=== PATIENT | male | born 1945 | race Caucasian/White ===

== ENCOUNTER → 2019-09-23 10:47 | Outpatient (BNVA) | payer MEDICARE, OTHER, SELFPAY | PROVIDERS: Family Provider Internal Medicine; PCP Internal Medicine; Referring Provider Internal Medicine; Visit Provider Orthopaedic Surgery | DX: M17.11 Unilateral primary osteoarthritis, right knee (principal); M25.561 Pain in right knee | CPT/HCPCS: 73560; 73565 ==

== ENCOUNTER → 2020-06-13 09:24 | Outpatient (BNVA) | payer MEDICARE, OTHER, SELFPAY | PROVIDERS: PCP Internal Medicine; Visit Provider Orthopaedic Surgery | DX: M17.11 Unilateral primary osteoarthritis, right knee (principal); Z96.652 Presence of left artificial knee joint | CPT/HCPCS: 73560; 73565 ==

== ENCOUNTER → 2021-09-20 11:19 | Outpatient (BNVA) | payer MEDICARE, OTHER, SELFPAY | PROVIDERS: PCP Internal Medicine; Visit Provider Nurse Practitioner Family | DX: N40.1 Benign prostatic hyperplasia with lower urinary tract symptoms (principal); R39.9 Unspecified symptoms and signs involving the genitourinary system; R33.9 Retention of urine, unspecified | CPT/HCPCS: 81003; 87086 ==

== ENCOUNTER 2022-01-02 06:00 | Outpatient (RCR) | payer MEDICARE, OTHER, SELFPAY | END 2022-01-02 23:55 | disposition home or self-care (01) | LOC: SPT 06:00 | PROVIDERS: PCP Internal Medicine; Referring Provider Orthopaedic Surgery; Visit Provider Orthopaedic Surgery | DX: M17.11 Unilateral primary osteoarthritis, right knee (principal) | CPT/HCPCS: 97161 ==

== ENCOUNTER 2022-01-03 06:00 | Outpatient (RCR) | payer MEDICARE, OTHER, SELFPAY | END 2022-02-01 23:59 | disposition home or self-care (01) | LOC: SPT 06:00 | PROVIDERS: PCP Internal Medicine; Referring Provider Orthopaedic Surgery; Visit Provider Orthopaedic Surgery | DX: M17.11 Unilateral primary osteoarthritis, right knee (principal) | CPT/HCPCS: 97110 ==

== ENCOUNTER 2022-02-02 06:00 | Outpatient (RCR) | payer MEDICARE, OTHER, SELFPAY | END 2022-03-04 23:59 | disposition home or self-care (01) | LOC: SPT 06:00 | PROVIDERS: PCP Internal Medicine; Referring Provider Orthopaedic Surgery; Visit Provider Orthopaedic Surgery | DX: Z47.1 Aftercare following joint replacement surgery (principal); Z96.651 Presence of right artificial knee joint; M25.561 Pain in right knee | CPT/HCPCS: 97110 ==

== ENCOUNTER → 2022-03-06 14:14 | Outpatient (BNVA) | payer MEDICARE, OTHER, SELFPAY | PROVIDERS: PCP Internal Medicine; Visit Provider Urology | DX: R33.9 Retention of urine, unspecified (principal); N32.9 Bladder disorder, unspecified | CPT/HCPCS: 52000; 99214 ==

== ENCOUNTER 2022-10-18 10:00 | Oncology outpatient (recurring) (ONCR) | payer MEDICARE, OTHER, SELFPAY ==
[2022-10-11] MEDS: ferric carboxy (IVPB) 750 MG in sodium chloride 0.9% (100 ml) 100 ML 345 MG IV (15:52)
[2022-10-11] MEDS: sodium chloride 0.9% 250 ML 100 ML IV (15:52)
[2022-10-11 16:31] VITALS: BP 138/72; PULSE 72; TEMP 36.6; O2SAT 95
[2022-10-18 10:15] VITALS: BP 142/75; PULSE 79; RESP 20; TEMP 36.6; O2SAT 95
[2022-10-18] MEDS: ferric carboxy (IVPB) 750 MG in sodium chloride 0.9% (100 ml) 100 ML 345 MG IV (10:28)
== END 2022-11-02 23:59 | disposition home or self-care (01) ==
PROVIDERS: PCP Internal Medicine; Visit Provider Internal Medicine
DX: D50.9 Iron deficiency anemia, unspecified (principal)
CPT/HCPCS: 96365; J1439; J7050

== ENCOUNTER → 2022-11-28 14:12 | Outpatient (BNVA) | payer MEDICARE, OTHER, SELFPAY | PROVIDERS: PCP Internal Medicine; Visit Provider Nurse Practitioner Family | DX: L81.4 Other melanin hyperpigmentation (principal); L82.1 Other seborrheic keratosis; L85.3 Xerosis cutis; D69.2 Other nonthrombocytopenic purpura; Z85.828 Personal history of other malignant neoplasm of skin | CPT/HCPCS: 99213 ==

== ENCOUNTER → 2023-09-17 08:59 | Outpatient (BNVA) | payer MEDICARE, OTHER, SELFPAY | PROVIDERS: PCP Internal Medicine; Visit Provider Student in an Organized Health Care Education/Training Program | DX: M54.50 Low back pain, unspecified; M16.11 Unilateral primary osteoarthritis, right hip | CPT/HCPCS: 72190; 99204 ==

== ENCOUNTER → 2023-09-19 15:22 | Outpatient (BNVA) | payer MEDICARE, OTHER, SELFPAY | PROVIDERS: PCP Internal Medicine; Referring Provider Student in an Organized Health Care Education/Training Program; Visit Provider Orthopaedic Surgery | DX: M51.36 Other intervertebral disc degeneration, lumbar region (principal); M47.816 Spondylosis without myelopathy or radiculopathy, lumbar region | CPT/HCPCS: 72110; 99204 ==

== ENCOUNTER 2023-11-04 14:17 | Emergency (ER) | payer MEDICARE, OTHER, SELFPAY ==
[2023-11-04 14:20] VITALS: BP 155/82; PULSE 89; RESP 17; TEMP 36.9; O2SAT 93; BMI 30.5
--- NOTE | 2023-11-04 14:24 | XR_ITS ---
WS: [id number] Examination: XR chest 1V portable [id number] Reason for Exam: dyspnea/cough Date: November 04, 2023 Comparison: 04/18/2020 Findings: Heart is not enlarged. The mediastinum not widened. Sternal wires are in place. There is no failure or effusion. There is no consolidation. Severe chronic changes of the shoulders a re noted with previous surgical changes to the lower cervical spine. Impression: There is no acute lung process.
--- NOTE | 2023-11-04 14:24 | USCV_ITS ---
Ruben Price Age: 77 Gender: M : 1945 Exam Date: 11/04/2023 15:10 Ordering Phys: Jhoan Her DO Technologist: Exam Location[place] [facility] [place]ication: lt arm swelling PROCEDURES: Venous duplex imaging was performed in only the left upper extremity. The following venous structures were evaluated: internal jugular vein, subclavian vein, axillary vein, and brachial veins. In addition, the basilic vein, cephalic vein, radial vein, and ulnar vein. FINDINGS: No evidence of deep vein thrombosis or superficial thrombophlebitis in the left upper extremity. CONCLUSIONS No left upper extremity DVT. Dr. Sharmaine Montano DO (Electronically Signed) Final Date: 04 November 2023 16:22 S
--- NOTE | 2023-11-04 14:34 | ECG_ITS ---
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 Measurements Intervals [place] Rate: 87 P: 72 DC: 162 QRS: -66 QRSD: 134 T: 75 QT: 383 QTc: 461 Interpretive Statements SINUS RHYTHM RIGHT BUNDLE BRANCH BLOCK [120+ ms QRS DURATION, UPRIGHT V1, 40+ ms S IN I/aVL/V4/V5/V6] LEFT ANTERIOR FASCICULAR BLOCK [QRS AXIS <= -45, QR IN I, RS IN II] LEFT VENTRICULAR HYPERTROPHY AND ST-T CHANGE [VOLTAGE CRITERIA PLUS ST/T ABNORMALITY] POSSIBLE SEPTAL MYOCARDIAL INFARCTION , PROBABLY OLD [30 ms Q WAVE IN V1/V2] Compared to ECG 07/02/2019 04:45:08 Right bundle-branch block now present.Left ventricular hypertrophy now present ST (T wave) deviation now present,Myocardial infarct finding now present Ventricular premature complex(es) no longer present Incomplete right bundle-branch block no longer present T-wave abnormality no longer present Electronically Signed On 11-04-2023 16:31:43 CDT by Dick Briggs M.D. [id number]
--- NOTE | 2023-11-04 14:34 | ED_ITS ---
HPI - Extremity Problem 2 General: Chief complaint: Extremity Problem,Nontraumatic Stated complaint: sent from [facility] office possible blood clot Time Seen by Provider: 11/04/23 14:24 Source: patient Mode of arrival: ambulatory History of Present Illness: 77-year-old male with a known history of coronary disease and previous bypass presents to the emergency room with complaint of left arm pain and some swelling. He was seen at his primary care doctor's office and directed to the emergency room. When he presented previously with his HI he had very atypical symptoms. No history of any DVT or clot no history of any blood draws in the arm he has a little swelling on the left forearm. No recent trauma or falls. Patient is diabetic. He is on clopidogrel post bypass but is not on any other anticoagulants no known history of any DVT or PE. No reports of fever sweats chills. He does report being somewhat short of breath recently and having mild nonproductive cough. MD Complaint: extremity pain Onset (ago): day(s) Pain Consistency: constant Location: left, upper extremity and elbow Quality: aching Relieving factors: nothing Exacerbating factors: nothing Associated symptoms: Reports chest pain; Deny arthralgias, fever(s), myalgias, rash or short of breath Review of Systems 2 Const: Denies: fever(s) Card: Reports: chest pain Resp: Reports: dyspnea and non-productive cough GI: Denies: abdominal pain : Denies: dysuria, urinary frequency or urinary urgency Musc: Reports: extremity pain and extremity swelling; Denies: neck pain or back pain Skin/Breast: Denies: rash PFSH ED 2 PFSH: Medical History History of nonmelanoma skin cancer Urinary retention Recurrent UTI BPH loc w urin obs/LUTS Lower urinary tract symptoms (LUTS) Depression Type 2 diabetes mellitus Atherosclerosis of coronary artery of [place] heart EKG revealed a sinus rhythm with some specific T wave changes in the high lateral leads. Voltage criteria for LVH. No significant new changes Arthritis Hyperlipidemia Degenerative arthritis of right knee Coronary artery disease Diabetes Hypertension Cataract Rotator cuff tear arthropathy of both shoulders Carpal tunnel syndrome of right wrist Surgical History H/O heart bypass surgery History of knee replacement History of shoulder surgery History of eye surgery History of neck surgery History of lumbar laminectomy H/O arthroscopy of right knee History of carpal tunnel surgery of left wrist Family History Mother , at age 71 Cancer breast Father , at age 65 Diabetes CAD (coronary artery disease) Denies family history of Clotting disorder Dementia Chronic kidney disease (CKD) Suicide Anesthesia complication Bleeding disorder Lung disease Stroke Social History Smoking and tobacco/nicotine status: never used tobacco/nicotine Alcohol intake: current Alcohol intake frequency: few times a week Marital status: Current occupational status: retired Physical Exam 2 Const: COMMON NORMALS: no acute distress GENERAL APPEARANCE: cooperative and comfortable ORIENTATION/CONSCIOUSNESS: Yes awake, Yes oriented to person, Yes oriented to place and Yes oriented to time HENMT: COMMON NORMALS: normocephalic, atraumatic and hearing grossly normal bilaterally HEAD & SCALP: normocephalic and atraumatic Resp: COMMON NORMALS: normal respiratory effort, No retractions, No use of accessory muscles and clear to auscultation bilaterally AUSCULTATION: clear to auscultation bilaterally Cardio: COMMON NORMALS: regular rate, regular rhythm and No murmurs present (Cardio) RATE: regular rate RHYTHM: regular rhythm GI: COMMON NORMALS: Soft to palpation and No hepatosplenomegaly present A USCULTATION: Yes normoactive bowel sounds PALPATION: Yes Soft to palpation, No Tenderness to palpation present (GI), No Guarding due to palpation present (GI) and Yes No hepatosplenomegaly present Extremity: COMMON NORMALS: normal to inspection, capillary refill normal, no clubbing, cyanosis or edema, no calf tenderness and no pedal edema Neuro: SENSORIUM/ORIENTATION: Yes oriented to person, Yes oriented to place and Yes oriented to time Skin: COMMON NORMALS: no rashes or lesions noted GENERAL SKIN EXAM: no rashes or lesions noted Course 2 Vital Signs: Vital signs: Vital Signs Temperature 98.4 F 11/04/23 14:20 Pulse Rate 86 11/04/23 17:00 Respiratory Rate 17 11/04/23 14:20 Blood Pressure 156/80 11/04/23 17:00 Pulse Oximetry 92 11/04/23 17:00 Oxygen Delivery Me thod Room Air 11/04/23 17:00 MDM - Extremity (Nontraumatic) Medical Decision Making Labs and imaging reviewed serial enzymes and EKG does not show any acute changes. He has some mild redness and some swelling is dependent at the elbow is not a significant amount of bursal swelling though appears to have a mild cellulitis. No signs of rash no evidence of a varicella-zoster. No recent injections or blood draws venous duplex was negative. Will discharge patient home with oral antibiotics. Recheck if not improving or if worsens. Incidental finding of cystitis as well antibiotic coverage should manage both issues. Medical Records I reviewed the patient's medical records. Lab Data I reviewed the patient's lab results. 11/04/23 14:37 11/04/23 14:37 Laboratory Results WBC 14.02 10^3/uL (3.29-11.43) H 11/04/23 14:37 RBC 5.28 10^6/uL (3.85-5.65) 11/04/23 14:37 Hgb 15.80 g/dL (11.27-16.99) 11/04/23 14:37 Hct 47.7 % (37-53) 11/04/23 14:37 MCV 90.3 fl (82-101) 11/04/23 14:37 MCH 29.9 pg (27-33) 11/04/23 14:37 MCHC 33.1 g/dL (30-55) 11/04/23 14:37 RDW 12.5 % (12.1-15.1) 11/04/23 14:37 Plt Count 218 10^3/cmm (157-399) 11/04/23 14:37 MPV 11.0 fL (7.4-10.4) H 11/04/23 14:37 Neut % (Auto) 74.7 % 11/04/23 14:37 Lymph % (Auto) 12.8 % 11/04/23 14:37 [place] % (Auto) 10.2 % 11/04/23 14:37 Eos % (Auto) 1.6 % 11/04/23 14:37 Baso % (Auto) 0.3 % 11/04/23 14:37 Neut # (Auto) 10.47 10^3/uL (1.8-7.7) H 11/04/23 14:37 Lymph # (Auto) 1.8 10^3/uL (0.8-4.8) 11/04/23 14:37 [place] # (Auto) 1.4 10^3/uL (0.2-0.9) H 11/04/23 14:37 Eos # (Auto) 0.2 10^3/uL (0.0-0.8) 11/04/23 14:37 Baso # (Auto) 0.0 10^3/uL (0.0-0.1) 11/04/23 14:37 Nucleated RBC % (auto) 0 % 11/04/23 14:37 Nucleated RBCs # 0.0 /100WBC 11/04/23 14:37 PT 12.60 SECONDS (12.1-14.9) 11/04/23 14:37 INR 0.92 (0.8-1.2) 11/04/23 14:37 APTT 28.7 SECONDS (23.9-36.7) 11/04/23 14:37 Sodium 137 mmol/L (136-145) 11/04/23 14:37 Potassium 4.4 mmol/L (3.5-5.1) 11/04/23 14:37 Chloride 100 mmol/L (98-107) 11/04/23 14:37 Carbon Dioxide 27 mmol/L (22-29) 11/04/23 14:37 Anion Gap 14.4 (5-19) 11/04/23 14:37 BUN 12 mg/dL (8-23) 11/04/23 14:37 Creatinine 1.1 mg/dL (0.7-1.2) 11/04/23 14:37 GFR Calculation Not Reportable 11/04/23 14:37 Glucose 126 mg/dL (65-115) H 11/04/23 14:37 Calculated Osmolality 285 mOsm/kg (285-295) 11/04/23 14:37 Lactic Acid 1.3 mmol/L (0.5-2.2) 11/04/23 14:37 Calcium 9.6 mg/dL (8.5-10.5) 11/04/23 14:37 Total Bilirubin 0.7 mg/dL (0.15-1.2) 11/04/23 14:37 AST 25 U/L (0-40) 11/04/23 14:37 ALT 26 U/L (0-41) 11/04/23 14:37 Alkaline Phosphatase 89 U/L (40-130) 11/04/23 14:37 Troponin T Baseline 24 ng/L (0-15) H 11/04/23 14:37 Troponin T 120 Minute 21.79 ng/L (0-15) H 11/04/23 16:40 Delta Troponin T -2.21 ABS# (0-10) L 11/04/23 16:40 Total Protein 6.5 g/dL (6.6-8.7) L 11/04/23 14:37 Albumin 4.1 g/dL (3.5-5.2) 11/04/23 14:37 Globulin 2.4 g/dL (1.3-4.6) 11/04/23 14:37 Urine Color Yellow (Yellow) 11/04/23 15:53 Urine Appearance Sl hazy (CLEAR) A 11/04/23 15:53 Urine pH 7 (5-7) 11/04/23 15:53 Ur Specific [place] 1.015 (1.005-1.030) 11/04/23 15:53 Urine Protein Neg (Negative) 11/04/23 15:53 Urine Glucose (UA) Norm (Normal) 11/04/23 15:53 Urine Ketones 1+ (Negative) H 11/04/23 15:53 Urine Blood Neg (Negative) 11/04/23 15:53 Urine Nitrate Positive (Negative) H 11/04/23 15:53 Urine Bilirubin Neg (Negative) 11/04/23 15:53 Urine Urobilinogen 1 mg/dL (Negative) H 11/04/23 15:53 Ur Leukocyte Esterase 1+ (Negative) H 11/04/23 15:53 Urine RBC None /hpf (0-2) 11/04/23 15:53 Urine WBC 15-25 /hpf (0-5) H 11/04/23 15:53 Ur Squamous Epith Cells None /hpf (0-5) 11/04/23 15:53 Amorphous Sediment Not Reportable 11/04/23 15:53 Urine Bacteria 3+ /hpf (NONE) H 11/04/23 15:53 All radiology interpretation(s) finalized by discharge Discharge Plan Discharge Patient Disposition: Home Clinical Impression: Cellulitis, Cystitis Condition: Stable Prescriptions: New levofloxacin 500 mg tablet 500 mg PO DAILY 7 Days Qty: 7 0RF No Action omeprazole 20 mg capsule,delayed release(DR/EC) 20 mg PO DAILY nitroglycerin [Nitrostat] 0.4 mg tablet, sublingual 0.4 mg SUBLINGUAL Q5M PRN (Reason: Chest Pain) Tresiba FlexTouch U-100 100 unit/mL (3 mL) insulin pen 10 unit SUBCUT BID rosuvastatin 10 mg tablet 10 mg PO DAILY Qty: 30 0RF metformin 500 mg tablet extended release 24 hr 500 mg PO BID clopidogrel 75 mg tablet 75 mg PO DAILY tamsulosin 0.4 mg capsule 0.4 mg PO BID alprazolam 0.5 mg tablet 0.5 mg PO DAILY fluticasone propionate 50 mcg/actuation spray,suspension 2 spray INTRANASAL DAILY Discharge Orders: Discharge ED (Routine); Ordered 11/04/23 Ordered By: Jhoan Her Referrals: Gianfranco Barros, [Primary Care Provider] - Discharge Diet: Usual diet Discharge Activity: Increase activity as tolerated Patient Instructions: Opioid Safety, Pain Management Activity Restrictions/Additional Instructions: Thank you for choosing [facility] for your healthcare needs today. Please realize this is an emergency room and that we are providing you with a medical screening exam and this may not be complete and all inclusive of all the testing and or work up that you may need to determine your ailment or severity of your illness. It is very important that you follow up as instructed or that you return to the Emergency Department should you have concerns or if your condition changes or worsens in any way. You were seen today for some swelling in your left arm. Cardiac enzymes and EKG were normal. Ultrasound of the left arm did not show any clot your cardiac enzymes and EKG did not show any acute changes. You are also noted to have a bladder infection. Recommend that you take the antibiotics for a full 7 days. Follow-up with your primary care doctor within the next week to recheck. Coding Level of Care Code ED Marking Stitcher for Olesya Grant
[2023-11-04] MEDS: aspirin 81 mg Chew Tablet 324 MG PO (14:47)
[2023-11-04 14:49] LABS: Basophils % 0.3 %; Eosinophils # 0.2 10^3/uL (0.0-0.8); Eosinophils % 1.6 %; Hematocrit 47.7 % (37-53); Lymphocytes # 1.8 10^3/uL (0.8-4.8); Lymphocytes % 12.8 %; Mean Corpuscular HGB Conc 33.1 g/dL (30-55); Mean Corpuscular Hemoglobin 29.9 pg (27-33); Mean Corpuscular Volume 90.3 fl (82-101); Monocytes # 1.4 10^3/uL (0.2-0.9); Monocytes % 10.2 %; Neutrophils # 10.47 10^3/uL (1.8-7.7); Neutrophils % 74.7 %; Nucleated Red Blood Cells % 0 %; Platelet Count 218 10^3/cmm (157-399); Red Blood Count 5.28 10^6/uL (3.85-5.65); Red Cell Distribution Width 12.5 % (12.1-15.1); White Blood Count 14.02 10^3/uL (3.29-11.43)
[2023-11-04 15:00] LABS: INR 0.92 (0.8-1.2); Partial Thromboplastin Time 28.7 SECONDS (23.9-36.7)
[2023-11-04 15:06] LABS: Alanine Aminotransferase 26 U/L (0-41); Albumin Level 4.1 g/dL (3.5-5.2); Alkaline Phosphatase 89 U/L (40-130); Aspartate Amino Transferase 25 U/L (0-40); Blood Urea Nitrogen 12 mg/dL (8-23); Calcium 9.6 mg/dL (8.5-10.5); Carbon Dioxide 27 mmol/L (22-29); Chloride 100 mmol/L (98-107); Creatinine Clr Calc Pharmacy 61.5862; Globulin 2.4 g/dL (1.3-4.6); Glucose 126 mg/dL (65-115); Osmolality Calculated 285 mOsm/kg (285-295); Sodium 137 mmol/L (136-145); Total Bilirubin 0.7 mg/dL (0.15-1.2); Total Protein 6.5 g/dL (6.6-8.7)
[2023-11-04 15:07] LABS: Anion Gap 14.4 (5-19); Lactic Sepsis W/Reflex 1.3 mmol/L (0.5-2.2); Potassium 4.4 mmol/L (3.5-5.1)
[2023-11-04 15:09] LABS: Troponin(5th) Baseline 24 ng/L (0-15)
[2023-11-04 16:00] VITALS: BP 144/88; PULSE 91; O2SAT 92
[2023-11-04 16:30] VITALS: BP 137/106; PULSE 93; O2SAT 93
--- NOTE | 2023-11-04 16:34 | ECG_ITS ---
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 Measurements Intervals [place] Rate: 89 P: 68 TN: 161 QRS: -66 QRSD: 129 T: 69 QT: 375 QTc: 458 Interpretive Statements SINUS RHYTHM RIGHT BUNDLE BRANCH BLOCK [120+ ms QRS DURATION, UPRIGHT V1, 40+ ms S IN I/aVL/V4/V5/V6] LEFT ANTERIOR FASCICULAR BLOCK [QRS AXIS <= -45, QR IN I, RS IN II] LEFT VENTRICULAR HYPERTROPHY AND ST-T CHANGE [VOLTAGE CRITERIA PLUS ST/T ABNORMALITY] Compared to ECG 11/04/2023 14:59:32 Myocardial infarct finding no longer present ST (T wave) deviation still present Electronically Signed On 11-04-2023 18:32:52 CDT by Dick Briggs M.D. [id number]
[2023-11-04 16:56] LABS: Glucose Urine UA Norm (Normal); Ketones Urine 1+ (Negative); Protein Urine Neg (Negative); Specific Gravity, Urine 1.015 (1.005-1.030); Urine Appearance SL Hazy (CLEAR); Urine Color Yellow (Yellow); pH Urine 7 (5-7)
[2023-11-04 16:57] LABS: Add Urine Culture? Yes; Add Urine Microscopic? YES; Bacteria Urine 3+ /hpf; Bilirubin Urine Neg (Negative); Blood Urine Neg (Negative); Leukocyte Esterase Urine 1+ (Negative); Nitrate Urine Positive (Negative); Urobilinogen Urine 1 mg/dL (Negative); WBC Urine 15-25 /hpf (0-5)
[2023-11-04 17:00] VITALS: BP 156/80; PULSE 86; O2SAT 92
[2023-11-04 17:03] LABS: Troponin 5 2HR 21.79 ng/L (0-15)
[2023-11-04 17:04] LABS: Troponin 5 2HR Delta -2.21 ABS# (0-10)
== END 2023-11-04 17:49 | disposition home or self-care (01) ==
PROVIDERS: Emergency Provider Family Medicine; PCP Internal Medicine
DX: L03.114 Cellulitis of left upper limb (principal); N30.90 Cystitis, unspecified without hematuria; Z79.4 Long term (current) use of insulin; Z79.84 Long term (current) use of oral hypoglycemic drugs; Z79.02 Long term (current) use of antithrombotics/antiplatelets; E11.9 Type 2 diabetes mellitus without complications; I25.10 Atherosclerotic heart disease of native coronary artery without angina pectoris; E78.5 Hyperlipidemia, unspecified; I10 Essential (primary) hypertension
CPT/HCPCS: 36415; 71045; 80053; 81001; 83605; 84484; 85025; 85610; 85730; 87077; 87086; 87186; 93005; 93971; 99285

== ENCOUNTER → 2023-12-04 10:23 | Outpatient (BNVA) | payer MEDICARE, OTHER, SELFPAY | PROVIDERS: PCP Internal Medicine; Visit Provider Anesthesiology Pain Medicine | DX: M54.16 Radiculopathy, lumbar region (principal); M79.18 Myalgia, other site; G89.29 Other chronic pain; M47.816 Spondylosis without myelopathy or radiculopathy, lumbar region; M16.11 Unilateral primary osteoarthritis, right hip; M17.11 Unilateral primary osteoarthritis, right knee | CPT/HCPCS: 20553; 99204; J1010; J3490 ==

== ENCOUNTER 2023-12-11 07:02 | Outpatient (CLI) | payer MEDICARE, OTHER, SELFPAY ==
--- NOTE | 2023-12-11 07:15 | MR_ITS ---
WS: [id number] MRI LUMBAR SPINE NONCONTRAST TECHNIQUE: Sagittal T1, T2 and STIR imaging. Axial T1 and T2 imaging. CLINICAL INFORMATION: M54.16 - Radiculopathy, lumbar region COMPARISON: None. FINDINGS: Mild lumbar curve. No acute compression. Disc bulging worse at L1-L2 and L2-L3 with small central pro trusions. Disc space narrowing worse at L4-5. Prior postoperative changes RIGHT hemilaminectomy L2-3 and L4-5. L1-L2: Small central protrusion. Mild central canal stenosis with narrowing of the subarticular reces s bilaterally. Mild to moderate bilateral foraminal narrowing with small foraminal protrusions. L2-L3: RIGHT hemilaminectomy. Shallow central protrusion. Mild central canal stenosis. Impingement tr aversing L3 nerve roots bilaterally. Advanced facet arthropathy. Mild to moderate bilateral foraminal narrowing. L3-L4: Mild annular bulging. Narrowing of the subarticular recess bilaterally. Moderate facet arthrop athy. Mild LEFT greater than RIGHT foraminal narrowing. L4-L5: RIGHT hemilaminectomy. Central disc protrusion with slight narrowing of the subarticular reces s bilaterally with impingement of traversing L5 nerve roots. Moderate facet arthropathy. Mild bilater al foraminal narrowing. L5-S1: Mild disc bulge with slight impingement on the traversing RIGHT S1 nerve root in the subarticu lar recess. Moderate facet arthropathy. Mild to moderate RIGHT foraminal narrowing. Visualized pelvic bony structures: Normal. Paravertebral soft tissues: Normal. Tiny RIGHT renal cyst. MR/MR lumbar spine wo con* [id number] IMPRESSION: 1. Mild lumbar curve. No acute compression. 2. Mild central canal stenosis with narrowing of the subarticular recess bilat erally at L1-2 and L2-3. Left-right narrowing of the thecal sac at these levels . 3. Prior RIGHT hemilaminectomy L2-3 and L4-5. 4. Shallow central disc protrusions L3-L4 and L4-L5 with slight impingement on subarticular recess and traversing nerve roots at these levels. 5. Disc bulge L5-S1 with slight impingement on the RIGHT subarticular recess a nd RIGHT S1 nerve root. Mild to moderate RIGHT L5-S1 foraminal narrowing at thi s level. 6. Otherwise mild to moderate bilateral foraminal narrowing L1-2 and L2-3 7. Moderate facet arthropathy L1-L2 L2-3 L3-L4 L4-L5.
== END 2023-12-11 07:03 | disposition home or self-care (01) ==
LOC: RAD 07:02
PROVIDERS: PCP Internal Medicine; Visit Provider Anesthesiology Pain Medicine
DX: M51.16 Intervertebral disc disorders with radiculopathy, lumbar region (principal); M51.17 Intervertebral disc disorders with radiculopathy, lumbosacral region; M47.816 Spondylosis without myelopathy or radiculopathy, lumbar region
CPT/HCPCS: 72148

== ENCOUNTER → 2024-01-14 10:01 | Outpatient (BNVA) | payer MEDICARE, OTHER, SELFPAY | PROVIDERS: PCP Internal Medicine; Visit Provider Anesthesiology Pain Medicine | DX: G89.29 Other chronic pain; M16.11 Unilateral primary osteoarthritis, right hip; M17.11 Unilateral primary osteoarthritis, right knee; M47.816 Spondylosis without myelopathy or radiculopathy, lumbar region; M48.061 Spinal stenosis, lumbar region without neurogenic claudication | CPT/HCPCS: 99214 ==

== ENCOUNTER → 2024-01-29 10:11 | Outpatient (BNVA) | payer MEDICARE, OTHER, SELFPAY | PROVIDERS: PCP Internal Medicine; Visit Provider Internal Medicine Cardiovascular Disease | DX: I10 Essential (primary) hypertension (principal); I25.5 Ischemic cardiomyopathy; E78.2 Mixed hyperlipidemia; I25.10 Atherosclerotic heart disease of native coronary artery without angina pectoris; E11.65 Type 2 diabetes mellitus with hyperglycemia; Z79.4 Long term (current) use of insulin | CPT/HCPCS: 99215 ==

== ENCOUNTER → 2024-02-18 14:28 | Outpatient (CLI) | payer MEDICARE, OTHER, SELFPAY ==
--- NOTE | 2024-02-18 14:30 | USCV_ITS ---
Ruben Price Age: 78 Gender: M : 1945 Exam Date: 02/18/2024 14:51 Ordering Phys: Dick Briggs MD ([email or web address]) Technologist: CT Exam Location: [facility] [place] Indication: BP: 168 / 92 HR: 68 Rhythm: Sinus Technical Quality: Adequate MEASUREMENTS (Male / Female) Normal Values 2D ECHO LVOT Diameter 2.4 cm LV Ejection Fraction MOD 4C 45.0 % LV Ejection Fraction MOD 2C 30.8 % LV Ejection Fraction 2C AL 33.2 % LA Diameter 3.9 cm RA Systolic Volume 4C AL 38.4 ml RA Systolic Volume 4C MOD 37.6 ml LA Sys Volume AL 64.4 cm cubed LA Sys Volume Index AL 31.1 cm cubed/m squared Aorta at Sinotubular Diameter 2.5 cm IVC Diameter 2.0 cm M-MODE LA Ao Ratio MM 1.4 AV Cusp Separation MM 2.4 cm DOPPLER AV Peak Velocity 104.0 cm/s LVOT Peak Velocity 67.0 cm/s AV Area Cont Eq vti 3.0 cm squared AV Area Cont Eq pk 2.8 cm squared MV Peak Velocity 69.0 cm/s MV Area PHT 3.2 cm squared Mitral E to A Ratio 1.2 TV Peak Velocity 217.0 cm/s TR Peak Velocity 260.0 cm/s TR Peak Gradient 27.0 mmHg TV Peak E Velocity 76.0 cm/s Right Atrial Pressure 3.0 mmHg Pulmonary Artery Systolic Pressu 30.0 mmHg PV Peak Velocity 91.0 cm/s FINDINGS Left Ventricle Moderate concentric left hypertrophy.Abnormal septal motion consistent with conduction abnormality.Grade I/IV diastolic dysfunction (abnormal relaxation filling pattern), normal to mildly elevated filling pressures. Right Ventricle The right ventricle is normal in size and function. Right Atrium The right atrium is normal in size. Left Atrium Echodensity near to the left atrial appendage, suggesting Coumadin ridge.mildly increased left atrial size. Mitral Valve Trace mitral valve regurgitation. Aortic Valve Minimally thickened aortic valve Tricuspid Valve Mild tricuspid valve regurgitation. Pulmonic Valve Pulmonic valve not well visualized. Pericardium No pericardial effusion. Aorta Normal aortic annulus size. IVC Inferior vena cava not visualized. CONCLUSIONS Moderate concentric left hypertrophy. LV ejection fraction around 45% Abnormal septal motion consistent with conduction abnormality. Type I diastolic dysfunction. Mildly increased left atrial size. Echodensity in the left atrium, suggesting prominent Coumadin ridge Mild tricuspid valve regurgitation. Trace mitral valve regurgitation. Estimated pulmonary artery peak systolic pressure 30 mm ofHg There is no pericardial effusion. There are no intracardiac masses. Compared to the study from 07/07/2019, there is some improvement in the LV ejection fraction.(From 35% to 45%) Dr Dick Briggs MD [facility] (Electronically Signed) Final Date: 25 February 2024 09:19 S
== END | disposition home or self-care (01) ==
LOC: RAD 14:28
PROVIDERS: PCP Internal Medicine; Visit Provider Internal Medicine Cardiovascular Disease
DX: I25.5 Ischemic cardiomyopathy (principal); E78.2 Mixed hyperlipidemia; I51.7 Cardiomegaly; I50.30 Unspecified diastolic (congestive) heart failure; I51.0 Cardiac septal defect, acquired
CPT/HCPCS: 93306

== ENCOUNTER → 2024-04-22 12:42 | Outpatient (BNVA) | payer MEDICARE, OTHER, SELFPAY | PROVIDERS: PCP Internal Medicine; Visit Provider Internal Medicine Cardiovascular Disease | DX: I25.5 Ischemic cardiomyopathy (principal); I10 Essential (primary) hypertension; Z95.1 Presence of aortocoronary bypass graft; R42 Dizziness and giddiness | CPT/HCPCS: 99214 ==

== ENCOUNTER → 2024-05-28 12:33 | Outpatient (BNVA) | payer MEDICARE, SELFPAY | PROVIDERS: PCP Internal Medicine; Visit Provider Internal Medicine Cardiovascular Disease | DX: I25.5 Ischemic cardiomyopathy (principal); I10 Essential (primary) hypertension; E78.2 Mixed hyperlipidemia; I95.1 Orthostatic hypotension; R42 Dizziness and giddiness | CPT/HCPCS: 99214 ==

== ENCOUNTER 2024-07-07 09:45 | Outpatient (CLI) | payer MEDICARE, SELFPAY ==
--- NOTE | 2024-07-07 09:52 | USCV_ITS ---
Ruben Price Age: 78 Gender: M : 1945 Exam Date: 07/07/2024 10:59 Ordering Phys: Gianfranco Barros DO Technologist: Exam [place] [facility] [place] Indication: claudication RIGHT LEFT Brachial 138.00 mmHg Brachial 135.00 mmHg FINDINGS noncompressible tibial vessels bilaterally arterial duplex maybe of use Noncompressible ankle vessels bilaterally. Resting TBI of greater than 2.0 on the right side and 1.38 on the left CONCLUSIONS Noncompressible ankle vessels. So the ABIs could not be obtained Supranormal TBIs bilaterally. The above features may suggest extensive arterial sclerosis with no evidence of obstruction Dr Dick Briggs MD [facility] (Electronically Signed) Final Date: 07 July 2024 21:04 S
== END 2024-07-07 09:49 | disposition home or self-care (01) ==
PROVIDERS: PCP Internal Medicine; Visit Provider Internal Medicine
DX: I70.213 Atherosclerosis of native arteries of extremities with intermittent claudication, bilateral legs (principal)
CPT/HCPCS: 93922

== ENCOUNTER → 2024-07-21 09:45 | Outpatient (BNVA) | payer MEDICARE, SELFPAY | PROVIDERS: PCP Internal Medicine; Visit Provider Internal Medicine Cardiovascular Disease | DX: I25.5 Ischemic cardiomyopathy (principal); I10 Essential (primary) hypertension; E78.5 Hyperlipidemia, unspecified; I73.9 Peripheral vascular disease, unspecified | CPT/HCPCS: 99214 ==

== ENCOUNTER 2024-08-03 14:53 | Outpatient (CLI) | payer MEDICARE, OTHER, SELFPAY ==
--- NOTE | 2024-08-03 15:00 | CTR_ITS ---
PROCEDURE INFORMATION: Exam: CTA Abdominal Aorta and Bilateral Lower Extremities (Run-off) With Contrast Exam date and time: 08/03/2024 3:33 PM Age: 78 years old Clinical indication: Abnormal findings; Abnormal diagnostic imaging exam; Abnormality: Sanjiv; Prior surgery; Surgery date: 6+ months; Surgery type: Bilat knee; Additional info: Abnormal sanjiv's, life style limiting claudication TECHNIQUE: Imaging protocol: Computed tomographic angiography of the of the abdominal aorta, pelvis and bilateral lower extremities with contrast. 3D rendering (Not supervised by radiologist): MIP and/or 3D reconstructed images were created by the technologist. Radiation optimization: All CT scans at this facility use at least one of these dose optimization techniques: automated exposure control; mA and/or kV adjustment per patient size (includes targeted exams where dose is matched to clinical indication); or iterative reconstruction. Contrast material: OMNIPAQUE 350; Contrast volume: 125 ml; Contrast route: INTRAVENOUS (IV); COMPARISON: US CV ankle brachial index 83698 07/07/2024 10:59 AM RADIATION DOSE METRICS: Total DLP (mGy-cm): 1736.98 FINDINGS: Aorta: No aortic aneurysm. No aortic dissection. Minimal atherosclerotic disease in the infrarenal abdominal aorta. Celiac trunk and mesenteric arteries: There is minimal calcification with probable mild stenosis at the origin of the celiac and superior mesenteric artery with mild ecta poststenotic ectasia of the arteries without evidence hemodynamically significant stenosis or occlusion. Minimal atherosclerosis in the proximal inferior mesenteric artery. Renal arteries: No occlusion or significant stenosis. Mild atherosclerosis of the origin of the right renal artery. Right iliac arteries: No occlusion or significant stenosis. Minimal atherosclerosis involving the proximal right external iliac artery. Right femoral/popliteal arteries: Moderate multifocal calcified plaque throughout the course of the right common , deep femoral and right popliteal arteries resulting in mild stenosis. Evaluation at the level of the knee is limited due to right knee arthroplasty. Right infrapopliteal arteries: Severe multifocal calcified and noncalcified plaque resulting in at least moderate stenosis involving the right infrapopliteal arteries. There is intact three-vessel runoff in the right foot. Left iliac arteries: No occlusion or significant stenosis. Minimal atherosclerosis involving the proximal left external iliac artery. Left femoral/popliteal arteries: Moderate multifocal calcified plaque resulting in mild stenosis of the left common femoral, deep femoral, and popliteal arteries. Evaluation at the level of the left knee is limited due to left knee arthroplasty. Left infrapopliteal arteries: Multifocal calcified and noncalcified plaque resulting in at least moderate stenosis of the infrapopliteal arteries. There is intact three-vessel runoff through the left foot. Lungs: Bibasilar atelectasis. Partially visualized scattered subcentimeter calcified granulomas. Coronary arteries: Severe coronary artery calcification. Liver: The liver is normal in size. Diaphragm: Small sliding hiatal hernia. Gallbladder and biliary ducts: Unremarkable. No calcified stones. No ductal dilation. Pancreas: Unremarkable. No mass. No ductal dilation. Spleen: Normal. No splenomegaly. Adrenal glands: 10 x 16 mm right adrenal nodule incompletely evaluated on this exam. No left-sided adrenal nodule. Kidneys and ureters: Multiple cysts in the bilateral kidneys largest of which is seen in the interpolar/lower pole of the right kidney measuring up to 30 mm with complex fluid attenuation and scattered peripheral calcifications. Additional scattered mildly complex fluid attenuating cysts such as seen in the upper pole of the left kidney measuring approximately 8 mm. No evidence of hydroureteronephrosis or obstructing nephrolithiasis bilaterally. Stomach and bowel: Moderate to severe colonic diverticulosis without evidence to suggest acute diverticulitis. Appendix: The appendix is not definitively visualized however there are no secondary signs to suggest acute appendicitis. Urinary bladder: The urinary bladder is mildly distended with urine and moderately circumferentially thickened. Reproductive: Unremarkable as visualized. Intraperitoneal space: Unremarkable. No free air. No significant fluid collection. Lymph nodes: No lymphadenopathy. Bones/joints: Postsurgical changes from median sternotomy. Moderate hindfoot degenerative changes bilaterally. Moderate to severe multilevel degenerative changes of the thoracolumbar spine. Soft tissues: Small fat containing inguinal hernias right greater than left. Small amount of fluid within the left inguinal hernia. Mild soft tissue swelling and edema along the shins bilaterally. Soft tissue swelling and stranding also appreciated at the level of the base of the 1st metatarsals bilaterally. CT/CT angio abd aorta runof 64530 IMPRESSION: 1. Mild to moderate multifocal calcified and noncalcified plaque throughout the arteries of the lower extremities bilaterally kwxbu-dvqyntq-exkp-left with resultant yeml-ta-kwzjslsh stenosis as described above. There is intact three-vessel runoff through the feet bilaterally. 2. Calcification resulting in mild stenosis at the origin of the celiac and superior mesenteric arteries. 3. Multiple cysts in the bilateral kidneys with intermediate fluid density measuring up to 3 cm on the right incompletely evaluated on single phase examination. Further evaluation with nonemergent MRI renal mass protocol can be obtained as clinically indicated. 4. 16 mm right adrenal nodule incompletely evaluated on this exam. Can similarly be further evaluated with nonemergent MRI abdomen. 5. Other findings as described in the body of the report.
[2024-08-03 15:33] LABS: Blood Urea Nitrogen 10 mg/dL (8-23)
[2024-08-03] MEDS: iohexol 350 mg/mL 500 mL Btl (per mL) IV (16:00)
== END 2024-08-03 14:54 | disposition home or self-care (01) ==
LOC: RAD 14:55
PROVIDERS: PCP Internal Medicine; Visit Provider Internal Medicine Cardiovascular Disease
DX: I70.213 Atherosclerosis of native arteries of extremities with intermittent claudication, bilateral legs (principal); D35.01 Benign neoplasm of right adrenal gland; Q61.02 Congenital multiple renal cysts; I77.4 Celiac artery compression syndrome; I70.0 Atherosclerosis of aorta; I70.1 Atherosclerosis of renal artery; K55.1 Chronic vascular disorders of intestine; I77.1 Stricture of artery; Z98.890 Other specified postprocedural states; J98.11 Atelectasis; I25.10 Atherosclerotic heart disease of native coronary artery without angina pectoris; K44.9 Diaphragmatic hernia without obstruction or gangrene; N28.89 Other specified disorders of kidney and ureter; K57.90 Diverticulosis of intestine, part unspecified, without perforation or abscess without bleeding; R93.5 Abnormal findings on diagnostic imaging of other abdominal regions, including retroperitoneum; R93.41 Abnormal radiologic findings on diagnostic imaging of renal pelvis, ureter, or bladder; M19.072 Primary osteoarthritis, left ankle and foot; M19.071 Primary osteoarthritis, right ankle and foot; M47.895 Other spondylosis, thoracolumbar region; K40.90 Unilateral inguinal hernia, without obstruction or gangrene, not specified as recurrent; I70.201 Unspecified atherosclerosis of native arteries of extremities, right leg; J84.10 Pulmonary fibrosis, unspecified; I25.84 Coronary atherosclerosis due to calcified coronary lesion
CPT/HCPCS: 75635; 82565; 84520

== ENCOUNTER → 2024-09-07 14:55 | Outpatient (BNVA) | payer MEDICARE, OTHER, SELFPAY | PROVIDERS: PCP Family Medicine; Visit Provider Family Medicine | DX: I10 Essential (primary) hypertension (principal); E11.65 Type 2 diabetes mellitus with hyperglycemia; R53.1 Weakness; E78.2 Mixed hyperlipidemia; N40.1 Benign prostatic hyperplasia with lower urinary tract symptoms | CPT/HCPCS: 80053; 80061; 82306; 82607; 83036; 83721; 83880; 84153; 84403; 84443; 85025; 86140 ==

== ENCOUNTER → 2024-11-30 15:51 | Outpatient (BNVA) | payer MEDICARE, OTHER, SELFPAY | PROVIDERS: PCP Family Medicine; Visit Provider Internal Medicine Cardiovascular Disease | DX: I25.5 Ischemic cardiomyopathy (principal); I11.0 Hypertensive heart disease with heart failure; I50.9 Heart failure, unspecified; E11.51 Type 2 diabetes mellitus with diabetic peripheral angiopathy without gangrene; Z79.4 Long term (current) use of insulin; Z79.84 Long term (current) use of oral hypoglycemic drugs | CPT/HCPCS: 99214 ==

== ENCOUNTER → 2024-12-03 10:33 | Outpatient (BNVA) | payer MEDICARE, OTHER, SELFPAY | PROVIDERS: PCP Family Medicine; Visit Provider Family Medicine | DX: E78.2 Mixed hyperlipidemia (principal); E11.65 Type 2 diabetes mellitus with hyperglycemia; R53.1 Weakness; I10 Essential (primary) hypertension; R06.02 Shortness of breath | CPT/HCPCS: 80053; 80061; 83036; 83880 ==

== ENCOUNTER 2024-12-14 07:19 | Outpatient (CLI) | payer MEDICARE, OTHER, SELFPAY ==
--- NOTE | 2024-12-14 | ECG_ITS ---
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 Interpretive Statements LEXISCAN SESTAMIBI STRESS TEST Procedure: At the baseline, the blood pressure was 141/73 mmHg with a heart rate of 63 bpm. The electrocardiogram showed normal sinus rhythm, interventricular conduction delay with normal ST and T's. The Lexiscan was infused over a period of 20 seconds. A total of 0.4 mg of Lexiscan was infused. The stress phase was continued for a total of 5 minutes. Heart rate was at the end of stress phase was 81 bpm and a blood pressure of 111/71 mmHg. The EKG at the peak infusion revealed normal sinus rhythm with no significant ST-T wave changes. PVCs seen Sestamibi was injected 20 seconds after the Lexiscan infusion. Blood pressure at the end of recovery phase was 121/70 mmHg with a heart rate of 77 bpm. Conclusion: 1. Normal EKG response to Lexiscan infusion 2. No Lexiscan induced chest pain or cardiac arrhythmia. 3. Normal blood pressure and heart rate response. 4. Sestamibi/sestamibi perfusion scan pending; see separate report. Electronically Signed On 12-19-2024 12:13:44 CDT by Tommy Moreno M.D. [email or web address]
--- NOTE | 2024-12-14 07:40 | NMCV_ITS ---
NM juanis perf SPECT r/s* [id number] Ruben Price Age: 79 Gender: M : 1945 Exam Date: 12/14/2024 08:35 Ordering Phys: Pradip Le MD ([email or web address]) Technologist: DAR Nixon Exam Location: [facility] Indications: cp STRESS TEST [facility] IMAGE PROTOCOL Rest/Stress 1 Lexiscan Day Radiopharmaceutical Dose (mCi) Administration Site Administered by Rest: Tc-99m 10.7 IV Suzette Inman, GAS STATION OPERATOR Sestamibi Stress:Tc-99m 32.6 IV Suzette Christiegle, GAS STATION OPERATOR Sestamibi Rest: 14-Dec-2024 60 Discovery 630 Stress: 14-Dec-2024 30 Discovery 630 0.4mg Lexiscan. Images obtained in supine and prone position. SPECT RESULTS Technical Quality: Good Raw Data Analysis: Normal Image Corrections: No attenuation or motion correction applied Summed Stress Score: 15 Summed Rest Score: 7 Summed Difference Score: 9 PERFUSION FINDINGS Medium sized area of fixed perfusion defect noted in mid to distal inferior wall which showed large area of severe reversibility suggestive of old myocardial infarction surrounded by large area of severe collin-infarct ischemia in RCA territory. There appeared to be medium size area moderate reversibility noted in mid to lateral anterior wall suggestive of ischemia in the absence of prone images cannot rule out artifact. Clinical correlation advised. FUNCTIONAL RESULTS (calculated via Gated SPECT) Stress Image LV EF (%): 54 Stress EDV (mL):153 TID: 1.2 Stress ESV (mL):70 FUNCTIONAL FINDINGS: There appeared to be global hypokinesis. IMPRESSIONS Medium sized area of fixed perfusion defect noted in mid to distal inferior wall which showed large area of severe reversibility suggestive of old myocardial infarction surrounded by large area of severe collin-infarct ischemia in RCA territory. There appeared to be medium size area moderate reversibility noted in mid to lateral anterior wall suggestive of ischemia in the absence of prone images cannot rule out artifact. Clinical correlation advised. Pradip Le MD (Electronically Signed) Final Date: 17 Dec 2024 22:15 S
[2024-12-14 07:43] VITALS: BMI 31.0
[2024-12-14] MEDS: regadenoson 0.4 Mg/5 ml Syringe IVP (09:08)
[2024-12-14 09:18] VITALS: BP 121/70; PULSE 79
--- NOTE | 2024-12-14 11:23 | USCV_ITS ---
Ruben Price Age: 79 Gender: M : 1945 Exam Date: 12/14/2024 09:18 Ordering Phys: Dick Briggs MD Technologist: [place] [facility] [place]ication: cp sob BP: 128 / 73 HR: 68 Rhythm: Sinus Technical Quality: Adequate MEASUREMENTS (Male / Female) Normal Values 2D ECHO LV Diastolic Diameter PLAX 5.4 cm 4.2 - 5.9 / 3.9 - 5.3 cm IVS Diastolic Thickness 1.1 cm 0.6 - 1.0 / 0.6 - 0.9 cm IVS Systolic Thickness 1.9 cm LVPW Diastolic Thickness 1.4 cm 0.6 - 1.0 / 0.6 - 0.9 cm LVPW Systolic Thickness 1.8 cm LVOT Diameter 2.5 cm LV Ejection Fraction 2D Teich 67.5 % LV Ejection Fraction MOD 4C 64.1 % LV Ejection Fraction MOD 2C 66.2 % LV Ejection Fraction 2C AL 67.7 % LA Diameter 4.9 cm RA Systolic Volume 4C AL 37.2 ml RA Systolic Volume 4C MOD 37.4 ml Aorta at Sinotubular Diameter 3.4 cm IVC Diameter 2.6 cm M-MODE LA Ao Ratio MM 1.4 AV Cusp Separation MM 2.0 cm DOPPLER AV Peak Velocity 111.0 cm/s LVOT Peak Velocity 54.0 cm/s AV Area Cont Eq vti 3.3 cm squared AV Area Cont Eq pk 2.4 cm squared MV Peak Velocity 61.0 cm/s MV Area PHT 4.2 cm squared Mitral E to A Ratio 1.4 TV Peak Velocity 202.0 cm/s TR Peak Velocity 243.0 cm/s TR Peak Gradient 23.6 mmHg TV Peak E Velocity 81.0 cm/s PV Peak Velocity 107.0 cm/s FINDINGS Left Ventricle Normal left ventricular size and systolic function, EF 66%. No regional wall motion abnormalities.mild left ventricular hypertrophy.no regional wall motion abnormalities. . Right Ventricle Normal right ventricular size and systolic function. Right Atrium The right atrium is normal in size. Left Atrium The left atrium is normal in size. Mitral Valve Thickened mitral valve. Mild mitral valve regurgitation. Aortic Valve No gross abnormalities noted Tricuspid Valve Trace tricuspid valve regurgitation. Pulmonic Valve Thickened pulmonic valve. Pericardium Normal pericardium without effusion. Aorta Normal aortic annulus size. IVC Inferior vena cava not visualized. CONCLUSIONS Normal left ventricular size and systolic function, EF 66%. No regional wall motion abnormalities.mild left ventricular hypertrophy.no regional wall motion abnormalities. . Thickened mitral valve. Mild mitral valve regurgitation. Trace tricuspid valve regurgitation. Thickened pulmonic valve. There is no pericardial effusion. There are no intracardiac masses. Compared to the study from 02/18/2024, there is significant improvement in the LV ejection fraction from 45% to 66%. Dr Dick Briggs MD [facility] (Electronically Signed) Final Date: 16 Dec 2024 16:44 S
== END 2024-12-14 07:20 | disposition home or self-care (01) ==
LOC: CDL 07:21
PROVIDERS: PCP Family Medicine; Visit Provider Internal Medicine Cardiovascular Disease
DX: R07.9 Chest pain, unspecified (principal); I51.7 Cardiomegaly; I34.0 Nonrheumatic mitral (valve) insufficiency; I37.8 Other nonrheumatic pulmonary valve disorders; R93.1 Abnormal findings on diagnostic imaging of heart and coronary circulation
CPT/HCPCS: 36415; 78452; 93017; 93306; 96374; A9500; J2785

== ENCOUNTER 2025-02-02 05:49 | Outpatient (CLI) | payer MEDICARE, OTHER, SELFPAY ==
[2025-02-02] VITALS (27 sets, daily range): BP systolic 135–177; BP diastolic 68–94; PULSE 51–81; RESP 15–27; TEMP 36.4–37; O2SAT 91–98; BMI 31.1
--- NOTE | 2025-02-02 06:00 | XACV_ITS ---
Exam Room: 2 Ht: 170 cm Wt: 90 kg BSA: 2.09 m2 Gender: Male : 1945 Any Known Allergies: No known allergies Exam Priority: Routine Procedure(s): Procedure Description: Diagnostic procedure Procedure Description: PCI procedure Procedure Description: Left Heart Catheterization Procedure Description: Left ventriculography Procedure Description: Venous Graft Catheterization Procedure Description: ROSALES Graft Catheterization Procedure Description: Drug Eluting Coronary Stent Procedure Description: PTCA Procedure Description: Miscellaneous Procedure Description: Angio-Seal Procedure Description: ACT Procedure Description: Coronary Angiography Rey MARTINEZ; Diagnostic Cath Status: Elective Diagnostic Findings * Circumflex has no disease. * Left Main: subtotal occlusion, NJ: 3 flow. * Proximal Left Anterior Descending: total occlusion, NJ: 0 flow. * Left Internal Mammary Artery to Mid Left Anterior Descending graft: patent. * Proximal Right Coronary Artery: luminal irregularities 20% stenosis, NJ: 3 flow. * 1st Diagonal: total occlusion, NJ: 0 flow. * Ascending Aorta to 1st Diagonal graft: patent. * Posterior Descending Right: total occlusion, NJ: 0 flow. * Ascending Aorta to Posterior Descending Right graft: patent. * First Obtuse Marginal Branch Segment: severe 90% stenosis, NJ: 3 flow. * Three grafts visualized. * Coronary angiography shows right dominance. PCI Status: Elective PCI Indication: NSTE - ACS Interventional Findings * Left Main: 99% stenosis treated with a MDT NC EUPHORA RX 3.69L73VR BALLOON, MDT R JOSEPHINE 3.0X15 PATRICIA, and MDT NC EUPHORA RX 3.70G36ST BALLOON. 0% residual stenosis, NJ: 3 flow. * First Obtuse Marginal Branch Segment: 90% stenosis treated with a AB MINI TREK 2.00X20 RX BALLOON, MDT R JOSEPHINE 2.5X26 PATRICIA, MDT NC EUPHORA RX [id number] BALLOON, and AB MINI TREK 2.00X12 RX BALLOON. 0% residual stenosis, NJ: 3 flow. Conclusions 1. There is total occlusion coronary artery disease with three vessel disease. 2. Three coronary grafts visualized: all grafts patent. 3. All khanna are normal. 4. Patient has prior CABG. 5. Normal left ventricular systolic function. Ejection fraction of 60%. 6. Left Main was treated with a Balloon, Drug Eluting Stent, and Balloon. 7. First Obtuse Marginal Branch Segment was treated with a Balloon, Drug Eluting Stent, Balloon, and Balloon. Recommendations * 1-Return to inpatient for close monitoring and routine cath care 2-Risk factor modification for secondary prevention 3-Statin and aspirin 81 mg life-long, if tolerated 4-Continue Plavix 75mg p.o. daily for at least one year. We will assess at the end of one year again to continue if further or not 5-Continue optimal medical management 6-Follow up with Dr. Le in four weeks and your primary care in 10 days. Diagnostic RX Recommendation: PCI w/o planned CABG Ventriculography Ejection Fraction: 60.0 % Pressures Phase:Rest AO : 144 / 59 ( 89 ) @ 9:43:00 AM 100 / 57 ( 77 ) @ 10:04:00 AM 142 / 50 ( 81 ) @ 10:10:00 AM 77 / 39 ( 56 ) @ 10:16:00 AM 97 / 51 ( 71 ) @ 10:19:00 AM 127 / 58 ( 86 ) @ 10:33:00 AM 157 / 60 ( 97 ) @ 10:49:00 AM 161 / 47 ( 92 ) @ 10:49:00 AM LV : 162 / -5 / 16 @ 10:46:00 AM 162 / -7 / 13 @ 10:49:00 AM Valves Phase:DefaultPhase AV : 5.0 @ 10:02:39 AM AV Mean Gradient: 8.0 @ 10:02:39 AM Clinical Evaluation EBL: 5mL-10mL Procedural Details Pre-Procedure Time Out. Identified patient by full name and date of as verbalized by the patient/guarantor. Does the consent match the physician's order: Yes. Accurate & Complete Informed Consent: Yes. Inpatient/Outpatient History & Physical on Chart: Yes. If H&P is completed, is and addenduem needed: No. Visualize and Verify Site with Patient/Guarantor: N/A. Relevant Radiology Images available: Yes. Pre-op teaching completed and patient verbalized understanding. The risks, benefits, and alternatives of sedation and/or procedure were discussed by physician. The patient agrees to continue. Procedure started. [facility] Clinical Fraility Score: 3: Managing Well. 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 Chest Pain Symptom Assessment: Typical Angina Symptoms. Cardiovascular Instability: No. Correct patient, site and procedure confirmed by cath team. PERRLA. Strong, equal hand vac press operator bilaterally. Lungs clear x 5 lobes. IV Site on Arrival: 20 gauge in the right anticubital. IV Fluids: 0.9% NaCl at KVO. 0 mL infused prior to labor expediter. Pre Procedural Pulses: bilateral dorsalis pedis was 2+. Pre Procedural Pulses: bilateral posterior tibial was 2+. Pre Procedural Pulses: bilateral radial was 3+. Oxygen started at 2liters/min via nasal canula. bilateral groins was prepped with chloroprep then draped in the usual sterile fashion. Physician notified. Baseline sample Acquired. HR: 55 BPM. Patient's family in CPRU room #3. Dr. Le will update a the completion of the procedure. Equipment: 6F - Femoral. Cardiac Cath Pack. ACIST Manifold Kit Model BT 2000. Heparinized Saline (2 units/mL), 1000 mL bag. Kit, Micropuncture. Physician arrived. Physician scrubbed in. Immediate Pre-Procedure Time Out. Correct Patient: Yes; Correct Procedure: Yes; Correct Site: Yes; Correct Patient Position: Yes; Correct Supplies: Yes; Dried Flammable Prep: Yes; Blood Products Available: N/A;. Lidocaine 1% infiltrated to the right groin. Arterial access obtained with micropuncture set. A 5 [place] JL4 catheter in over the standard J wire. A Right femoral angiogram was performed to determine safe placement of closure device. Multiple views taken of left coronary artery. Catheter removed over the standard J wire. A 5 [place] JR4 catheter in over the standard J wire. Catheter redirected to the SVG --> 1st diagonal. SVG's to 1st Diaganol visualized. Catheter redirected to the SVG --> Right PDA. Unable to cannulate SVG --> Right PDA. Catheter redirected to the ROSALES --> LAD. ROSALES to LAD visualized. Catheter removed over the standard J wire. A 5 [place] MPA1 catheter in over the standard J wire. SVG --> Right PDA visualized. Catheter removed over the standard J wire. AP pads placed on the patient. 6 [place] XB 3.5 SH guide catheter was inserted over the standard J wire. Runthrough guidewire was advanced through the guide catheter to lesion in the OM. Inflation number : 1 A AB MINI TREK 2.00X20 RX BALLOON was prepped and advanced across the 1st Ob Lily , then inflated to 14 KELLY for 0:15 seconds. Inflation number: 2 The AB MINI TREK 2.00X20 RX BALLOON was reinflated across the 1st Ob Lily, to 18 KELLY for 0:06 seconds. Balloon out. Inflation Number : 3 Claire Yanez JOSEPHINE 2.5X26 PATRICIA -Lot Number# [id number] Exp. was prepped and advanced across the 1st Ob Lily. The stent was deployed at 12 KELLY for 0:21 seconds. Stent balloon out over wire. Inflation number : 4 A MDT NC EUPHORA RX 3.82V55WS BALLOON was prepped and advanced across the 1st Ob Lily , then inflated to 12 KELLY for 0:21 seconds. Inflation number: 5 The MDT NC EUPHORA RX 3.92J29BX BALLOON was reinflated across the 1st Ob Lily, to 18 KELLY for 0:38 seconds. Inflation number: 6 The MDT NC EUPHORA RX 3.16K36IA BALLOON was reinflated across the 1st Ob Lily, to 14 KELLY for 0:20 seconds. Inflation number: 1 The MDT NC EUPHORA RX 3.87N86JY BALLOON was reinflated across the LMCA, to 14 KELLY for 0:17 seconds. Balloon out. ACT drawn. Results 346 seconds. Therapeutic limits - pre-heparin administration 90-150 seconds and monitoring heparin during a vascular procedure >250 seconds. Inflation number : 7 A AB MINI TREK 2.00X12 RX BALLOON was prepped and advanced across the 1st Ob Lily , then inflated to 8 KELLY for 0:15 seconds. Balloon out. Inflation Number : 2 A MDT R JOSEPHINE 3.0X15 PATRICIA -Lot Number# [id number] Exp was prepped and advanced across the LMCA. The stent was deployed at 12 KELLY for 0:19 seconds. Inflation number: 3 The stent balloon was then re-inflated across the LMCA to 12 KELLY for 0:15 seconds. Inflation number: 4 The stent balloon was then re-inflated across the LMCA to 14 KELLY for 0:12 seconds. Stent balloon out over wire. Inflation number : 5 A MDT NC EUPHORA RX 3.19B58TS BALLOON was prepped and advanced across the LMCA , then inflated to 12 KELLY for 0:29 seconds. Inflation number: 6 The MDT NC EUPHORA RX 3.96B84WK BALLOON was reinflated across the LMCA, to 12 KELLY for 0:21 seconds. Balloon out. Results checked. Wire out. Guide catheter out over the standard J wire. A 5 [place] Angled Pig catheter in over the standard J wire. EDP Sample taken: LV 162/-6,16; HR: 58 BPM; SpO2: 98%. LV Gram perforemd with hand injection by Dr. Le. Pullback taken: LV 162/-8,13; AO 157/60(97); Mean: 8mmHg, Peak to Peak: 5mmHg, SEP: 18sec/min; HR: 60 BPM; SpO2: 93%. Catheter removed over the standard J wire. right groin was prepped with chloroprep for Angioseal. A Angio-Seal VIP ([facility]) was successful obtaining hemostatsis at the Right Femoral artery insertion site. Angioseal placed without complications. No signs or symptoms of hematoma noted. Sterile dressing applied per usual sterile fashion. Lot # [id number] Exp. . Post Procedure: Pulses reassessed and unchanged. PERRLA. Strong, equal hand vac press operator bilaterally. No VTE prophylaxis required. Medication's Wasted: Lidocaine 1% = 10 mL. Medication's Wasted: Heparin = 3000 units. Total IV fluids: 100 mL. PCI Indication: CAD (without ischemic symptoms). Post-op diagnosis: PCI of the OM with 1 PATRICIA and Distal LM with 1 PATRICIA. Complications: none. Estimated blood loss: 5mL-10mL. Responsiveness - Normal response to verbal stimuli; alert and oriented, PERRLA. Airway - Unaffected, no intervention required; spontaneous ventilation. Circulation: W/N/L, pulses unchanged. Nausea/Vomiting: No. Procedure completed. Patient transferred by bed to CPRU. Vital chart was stopped. Access Site Site: Right Femoral artery Sheath Size: 6 Fr Hemostasis Method: Angio-Seal VIP ([facility]) Hemostasis Success: Successful Procedure Medications Start: 8:06 AM Stop: 8:06 AM Medication: Versed Amount: 1 mg Route: I.V. Start: 8:06 AM Stop: 8:06 AM Medication: Fentanyl Amount: 50 mcg Start: 8:32 AM Stop: 8:32 AM Medication: Versed Amount: 1 mg Route: I.V. Start: 8:34 AM Stop: 8:34 AM Medication: Fentanyl Amount: 25 mcg Route: I.V. Start: 8:42 AM Stop: 8:42 AM Medication: Versed Amount: 1 mg Route: I.V. Start: 9:09 AM Stop: 9:09 AM Medication: Plavix Amount: 300 mg Route: P.O. Start: 9:09 AM Stop: 9:09 AM Medication: Heparin Amount: 8000 units Route: I.V. Start: 9:10 AM Stop: 9:10 AM Medication: Versed Amount: 1 mg Route: I.V. Start: 9:18 AM Stop: 9:18 AM Medication: Atropine Amount: 0.5 mg Route: I.V. Start: 9:28 AM Stop: 9:28 AM Medication: Fentanyl Amount: 25 mcg Route: I.V. I, the attending physician, have reviewed and verified all procedure medications. Yes, all medications given per verbal order History/Risk Factors Hypertension: Yes Dyslipidemia: Yes Peripheral Arterial Disease (PAD): Yes Myocardial Infarction (CA): No Obesity: No Renal Disease: No Tobacco Use: Never Prior Interventions PCI: Yes CABG: Yes Valve Surgery: No Date of PCI: 06/24/2015 Report Signatures Finalized by Pradip Le MD on 02/17/2025 08:01 PM
[2025-02-02 06:31] LABS: Hematocrit 48.4 % (37-53); Hemoglobin 16.10 g/dL (11.27-16.99); Mean Corpuscular HGB Conc 33.3 g/dL (30-55); Mean Corpuscular Hemoglobin 29.8 pg (27-33); Mean Corpuscular Volume 89.5 fl (82-101); Nucleated Red Blood Cells % 0 %; Platelet Count 239 10^3/cmm (157-399); Red Blood Count 5.41 10^6/uL (3.85-5.65); White Blood Count 5.61 10^3/uL (3.29-11.43)
[2025-02-02 06:52] LABS: Anion Gap 16.4 (5-19); Blood Urea Nitrogen 10 mg/dL (8-23); Calcium 9.2 mg/dL (8.5-10.5); Carbon Dioxide 22 mmol/L (22-29); Chloride 105 mmol/L (98-107); Creatinine Clr Calc Pharmacy 60.2684; Glucose 182 mg/dL (65-115); Osmolality Calculated 292 mOsm/kg (285-295); Potassium 4.4 mmol/L (3.5-5.1); Sodium 139 mmol/L (136-145)
--- NOTE | 2025-02-02 08:27 | W.PM.OPSFHP ---
Same Day Surgery H&P Indication for Procedure/HPI DATE OF PROCEDURE: February 02, 2025 CHIEF COMPLAINT/INDICATIONFOR SURGICAL PROCEDURE: Unstable angina Abnormal stress test History of coronary artery bypass surgery PREOP DIAGNOSIS: Abnormal stress test, history of CABG PLANNED PROCEDURE: Left heart catheterization with PCI if indicated Operation Date: 02/02/25 07:00 Proposed Procedures p Cardiac Catheterization(Left) - Pradip Le MD 79-year-old male past medical history significant for hypertension hyperlipidemia coronary artery bypass surgery for worsening of shortness of breath chest pressure underwent stress test which turns out to be positive. It is the reason patient is here for left heart catheterization. Medications/Allergies* Home Medications ?Medication ?Instructions ?Recorded ?Confirmed ?Type omeprazole 20 mg capsule,delayed 20 mg PO DAILY 09/20/21 02/01/25 History release alprazolam 0.5 mg tablet 0.5 mg PO DAILY 11/04/23 02/01/25 History furosemide 40 mg tablet (Lasix) 40 mg PO DAILY PRN fluid retention 07/21/24 02/01/25 History aspirin 81 mg tablet,delayed 81 mg PO DAILY 09/14/24 02/01/25 History release Allergies/Adverse Reactions Allergy/AdvReac Type Severity Reaction Status Date / Time No Known Allergies Allergy Verified 02/02/25 06:53 Current Medications: Generic Name Dose Route Start Last Admin Trade Name Freq PRN Reason Stop Dose Admin Sodium Chloride 1,000 mls @ 50 mls/hr 02/02/25 06:00 02/02/25 06:34 Sodium Chloride 0.9% IV 02/03/25 01:59 Not Given .Q20H ONE Pertinent History/Comorbid Conditions* Medical History (Updated 12/10/24 @ 18:43 by Itzel Treviño) PAD (peripheral artery disease) Orthostatic hypotension History of nonmelanoma skin cancer Urinary retention Recurrent UTI BPH loc w urin obs/LUTS Lower urinary tract symptoms (LUTS) Depression Type 2 diabetes mellitus Atherosclerosis of coronary artery of [place] heart EKG revealed a sinus rhythm with some specific T wave changes in the high lateral leads. Voltage criteria for LVH. No significant new changes Arthritis Hyperlipidemia Degenerative arthritis of right knee Coronary artery disease Diabetes Hypertension Cataract Rotator cuff tear arthropathy of both shoulders Carpal tunnel syndrome of right wrist Surgical History (Updated 09/04/22 @ 10:43 by Jocelyn Max, DO) H/O heart bypass surgery History of knee replacement History of shoulder surgery History of eye surgery History of neck surgery History of lumbar laminectomy H/O arthroscopy of right knee History of carpal tunnel surgery of left wrist Family History (Updated 08/18/20 @ 13:59 by Marimar Yuen RN) Father, at age 65 Mother, at age 71 Diabetes Father CAD (coronary artery disease) Father Cancer Mother breast Denies family history of Clotting disorder Dementia Chronic kidney disease (CKD) Suicide Anesthesia complication Bleeding disorder Lung disease Stroke Social History Smoking and tobacco/nicotine status: never used tobacco/nicotine Alcohol intake: current Alcohol intake frequency: few times a week Marital status: Current occupational status: retired Pertinent Exam Findings alert, oriented x 3, clear to auscultation bilaterally, regular rate & rhythm and operative site marked Conscious Sedation Assessment PATIENT ASSESSED PRIOR TO SEDATION, WITH NO CHANGE NOTED: Yes AIRWAY EVAL/ANESTHESIA PLAN: ASA II, Risks, benefits & alternatives of sedation and/or procedure discussed and Patient agrees to continue as planned ADDITIONAL INFORMATION: All risk-benefit and alternative for the procedure has been explained in detail to the patient. Patient understand 2% risk of stroke major bleed. Patient understand 6% risk of minor bleeding oozing infection hematoma contrast induced nephropathy pseudoaneurysm. He agrees to it and would like to proceed with it. Recommendations Other Coding Level of Care Code Acute Code for Chg Fwd
--- NOTE | 2025-02-02 10:10 | SUR.PHASEI ---
post cath fluid rate 0.9% NS at 100 ml/hr post cath per verbal order from Dr Le.
--- NOTE | 2025-02-02 10:10 | SUR.PHASEI ---
HOLDING NOTE Received patient from the [facility]. Status post cardiac catheterization via the right femoral approach. Family at bedside. MD in to discuss findings with the patient/family. Verbal post cath instructions given. They understood well. Call light within reach. Informed to call for needs. See vitals and flowsheet for details of assessments.
--- NOTE | 2025-02-02 10:10 | SUR.PHASEI ---
Chest pain Patient c/o chest pressure/pain 11/12. Given po water for plavix load in esphagus. Will continue to monitor.
--- NOTE | 2025-02-02 10:12 | P.PCN_ITS ---
Procedure Note: Date of procedure: 02/02/25 Pre-procedure diagnosis: Abnormal stress test/angina/history of CABG Post-procedure diagnosis: same Procedure: Left heart cath was performed: Patient noted to have distal high-grade hazy left main significant 90% stenosis, ostial 90% left circumflex stenosis and 80% high-grade mid tandem obtuse marginal 1 stenosis, it is the culprit vessel LAD is known to be totally occluded RCA has luminal irregularity by PLB has high-grade 80-90% stenosis it is small caliber short vessel PDA is occluded in the proximal side ROSALES to LAD is patent SVG to diagonal 1 is patent SVG to PDA is patent Culprit vessel is distal left main ostial circumflex and mid obtuse marginal 1 PCI to mid obtuse marginal 1 and PCI to distal left main into proximal circumflex was performed with 2 drug-eluting stents lesions were pre and postdilated with noncompliant balloon. Excellent angiographic result with [place]- 3 flow was noted at the end of the case. No complication noted. Plan: Right common femoral artery was Angio-Seal Bedrest for 4 hours Patient was loaded with 10 mg of Plavix since he is already on Plavix at home. Continue dual platelet therapy for 1 more year. Continue IV fluid 100 mL/h for next 1 L Patient will be staying overnight for post PCI care and for IV fluid and bedrest Possible discharge tomorrow Resume all home medications Coding Level of Care Code Acute Code for Chg Fwd
--- NOTE | 2025-02-02 10:30 | SUR.PHASEI ---
CHEST PRESSURE MD IN TO ASSESS. PRN ORDERS RECEIVED.
[2025-02-02] MEDS: nitroglycerin drip 50 MG/250 ML PREMIX IV (10:42)
--- NOTE | 2025-02-02 11:01 | SUR.PHASEI ---
Patient reports no chest pain but c/o headache with nitro. Patient asked to have nitro gtt turned off. D/C at his request since chest pain is now gone. Will continue to monitor.
--- NOTE | 2025-02-02 12:19 | PC.NURSE ---
received from [facility] via stretcher at 1125.report received.pt is alert and awake and oriented x 4.denies pain at present.sr on monitor.right femoral sheath removed in [facility] and angioseal applied there.right froin drsg is dry and intact.no hematoma noted.right leg is warm to touch and with brisk capillary refill.palpable dp pulse noted.pt instructed in activity restrictions s/p femoral artery procedure...and instructed to notify staff for any bleeding,pain,numbness,sob..or for any concerns at all.pt verb understanding of instructions
--- NOTE | 2025-02-02 14:47 | PC.NURSE ---
pt states he self caths at home.pt insisted on performing himself.150 cc urine obtained.
--- NOTE | 2025-02-02 19:18 | PM.DCS ---
Discharge Providers Date of Discharge: February 02, 2025 Attending Provider at Discharge: Pradip Le MD Primary Care Provider: Gavin Garsia MD Reason for Visit Reason for Visit: R94.39 Brief History: 79-year-old male past medical history significant for hypertension hyperlipidemia coronary artery bypass surgery for worsening of shortness of breath thought to be angina: Underwent stress test which noted to have abnormal stress test. Despite of optimization of medication patient did not get better therefore he underwent left heart catheterization today. He was noted to have high-grade 90% distal left main and ostial circumflex stenosis along with mid high-grade obtuse marginal 1 stenosis. Both lesions were fixed with 2 drug-eluting stent 1 in distal left main into proximal circumflex and other 1 in mid obtuse marginal 1 it was thought to be the culprit vessel. Both stents were postdilated with noncompliant balloon. Patient right groin was Angio-Seal. Postoperatively patient did fine. Would like to go home doing fine from cardiovascular perspective here walk around without any difficulty. At this point we will discharge him home. Patient already had been loaded with 300 mg of Plavix he takes regularly Plavix at home. Advised to continue home medications including dual antiplatelet therapy in the form of clopidogrel 75 mg and aspirin 81 mg. Patient has been advised in case of worsening of shortness of breath or chest pain or any groin problems such as hematoma he should call us and come to the ER. Physical Exam Const: OTHER: GENERAL: Patient is alert, awake and oriented x3. HEART: Regular S1 and S2. No murmur, rub or gallop. LUNGS: Clear to auscultate bilaterally. CENTRAL NERVOUS SYSTEM: Grossly nonfocal. EXTREMITIES: Lower extremities with out edema bilaterally. Right groin wound looks good no hematoma no bruising. Discharge Data Studies Completed and Pending Pending at discharge Category Date Time Status WATER PURIFICATION CHEMIST request for service Routine Exams 02/02/25 06:00 Taken Basic Metabolic Panel AM LABS Lab 02/03/25 04:00 Ordered Complete Blood Count w/Auto AM LABS Lab 02/03/25 04:00 Ordered Laboratory Results WBC 5.61 10^3/uL (3.29-11.43) 02/02/25 06:24 RBC 5.41 10^6/uL (3.85-5.65) 02/02/25 06:24 Hgb 16.10 g/dL (11.27-16.99) 02/02/25 06:24 Hct 48.4 % (37-53) 02/02/25 06:24 MCV 89.5 fl (82-101) 02/02/25 06:24 MCH 29.8 pg (27-33) 02/02/25 06:24 MCHC 33.3 g/dL (30-55) 02/02/25 06:24 RDW 12.5 % (12.1-15.1) 02/02/25 06:24 Plt Count 239 10^3/cmm (157-399) 02/02/25 06:24 MPV 10.8 fL (7.4-10.4) H 02/02/25 06:24 Neut % (Auto) 45.5 % 02/02/25 06:24 Lymph % (Auto) 28.3 % 02/02/25 06:24 [place] % (Auto) 16.4 % 02/02/25 06:24 Eos % (Auto) 7.8 % 02/02/25 06:24 Baso % (Auto) 1.1 % 02/02/25 06:24 Neut # (Auto) 2.55 10^3/uL (1.8-7.7) 02/02/25 06:24 Lymph # (Auto) 1.6 10^3/uL (0.8-4.8) 02/02/25 06:24 [place] # (Auto) 0.9 10^3/uL (0.2-0.9) 02/02/25 06:24 Eos # (Auto) 0.4 10^3/uL (0.0-0.8) 02/02/25 06:24 Baso # (Auto) 0.1 10^3/uL (0.0-0.1) 02/02/25 06:24 Nucleated RBC % (auto) 0 % 02/02/25 06:24 Nucleated RBCs # 0.0 /100WBC 02/02/25 06:24 Sodium 139 mmol/L (136-145) 02/02/25 06:24 Potassium 4.4 mmol/L (3.5-5.1) 02/02/25 06:24 Chloride 105 mmol/L (98-107) 02/02/25 06:24 Carbon Dioxide 22 mmol/L (22-29) 02/02/25 06:24 Anion Gap 16.4 (5-19) 02/02/25 06:24 BUN 10 mg/dL (8-23) 02/02/25 06:24 Creatinine 1.1 mg/dL (0.7-1.2) 02/02/25 06:24 GFR Calculation Not Reportable 02/02/25 06:24 Glucose 182 mg/dL (65-115) H 02/02/25 06:24 Calculated Osmolality 292 mOsm/kg (285-295) 02/02/25 06:24 Calcium 9.2 mg/dL (8.5-10.5) 02/02/25 06:24 Vitals Last Vital Signs Temp 98.6 F 02/02/25 16:00 Pulse 51 L 02/02/25 16:00 Resp 22 H 02/02/25 16:00 BP 145/93 02/02/25 16:00 Pulse Ox 94 02/02/25 16:00 O2 Del Method Room Air 02/02/25 16:00 Discharge Plan Discharge Patient Disposition: Home Prescriptions: No Action omeprazole 20 mg capsule,delayed release(DR/EC) 20 mg PO DAILY isosorbide mononitrate 30 mg tablet extended release 24 hr 30 mg PO DAILY Qty: 90 3RF nitroglycerin [Nitrostat] 0.4 mg tablet, sublingual 0.4 mg SUBLINGUAL Q5M PRN (Reason: Chest Pain) Qty: 20 3RF aspirin 81 mg tablet,delayed release (DR/EC) 81 mg PO DAILY rosuvastatin 10 mg tablet 10 mg PO DAILY Qty: 90 3RF clopidogrel 75 mg tablet 75 mg PO DAILY Qty: 90 1RF insulin glargine [Lantus Solostar U-100 Insulin] 100 unit/mL (3 mL) insulin pen 15 unit SUBCUT BID Qty: 15 11RF Patient Comments: LAST ADMIN WAS 1/2 SCHEDULED DOSING hydrocodone-acetaminophen 10-325 mg tablet 1 tab PO BID PRN (Reason: pain) 30 Days Qty: 60 0RF tamsulosin 0.4 mg capsule 0.4 mg PO BID Qty: 180 3RF duloxetine 30 mg capsule,delayed release(DR/EC) 30 mg PO DAILY Qty: 30 11RF Rx Instructions: take once a day x 2 weeks then increase to 2 tabs daily carvedilol 3.125 mg tablet 3.125 mg PO BID Qty: 180 3RF Rx Instructions: must administer with a meal/food furosemide [Lasix] 40 mg tablet 40 mg PO DAILY PRN (Reason: fluid retention) valsartan 160 mg tablet 160 mg PO QAM Qty: 90 3RF potassium chloride 20 mEq tablet extended release 20 meq PO DAILY Qty: 90 3RF amlodipine 5 mg tablet 5 mg PO BID Qty: 180 3RF metformin 500 mg tablet extended release 24 hr See Rx Instructions .ROUTE .COMPLEX Qty: 180 3RF Dose Instruction: TAKE ONE TABLET BY MOUTH TWICE DAILY Rx Instructions: TAKE ONE TABLET BY MOUTH TWICE DAILY alprazolam 0.5 mg tablet 0.5 mg PO DAILY Discharge Orders: Discharge Order (Routine); Ordered 02/02/25 Ordered By: Pradip Le Referrals: Radha Garcia FNP [Nurse Practitioner, Cardiology] - 02/16/25 3:00 pm Gavin Garsia MD [Primary Care Provider, Family Practice] Referral Note: We have notified your physician's clinic of the need for a follow-up appointment to be scheduled. If you have not heard from them within the next 2 business days, please call them directly. Diet: Cardiac Activity: Increase activity as tolerated Patient Instructions: Coronary Angioplasty (DC), Post Angiogram Home Care Instructions Activity Restrictions/Additional Instructions: Follow-up with cardiology nurse practitioner in 7 days. Patient has been advised in case of worsening of chest pain shortness of breath he should call 911 and come to the ER. Patient says he has enough Plavix and aspirin at home therefore we will continue that. Print Language: Yakut Discharge Date/Time: 02/02/25 19:41 Discharge Attestations Time Spent in Discharge Care*: greater than 30 min Quality Metrics Clinical Quality Measures [ No reported AMI, CVA or VTE this stay] Coding Level of Care Code Acute Code for Chg Fwd
== END 2025-02-02 19:41 | disposition home or self-care (01) ==
LOC: CCL 05:50 → CSU 11:38
PROVIDERS: PCP Family Medicine; Visit Provider Internal Medicine Cardiovascular Disease
DX: I25.10 Atherosclerotic heart disease of native coronary artery without angina pectoris (principal); I25.82 Chronic total occlusion of coronary artery; Z95.1 Presence of aortocoronary bypass graft; I10 Essential (primary) hypertension; E78.5 Hyperlipidemia, unspecified; I73.9 Peripheral vascular disease, unspecified; K21.9 Gastro-esophageal reflux disease without esophagitis; Z79.82 Long term (current) use of aspirin; F32.A Depression, unspecified; E11.9 Type 2 diabetes mellitus without complications; Z82.49 Family history of ischemic heart disease and other diseases of the circulatory system; Z79.84 Long term (current) use of oral hypoglycemic drugs
CPT/HCPCS: 36415; 80048; 85025; 85347; 93459; 99152; 99153; C1725; C1760; C1769; C1874; C1887; C1894; C9600; G0269; J0461; J1644; J2250; J3010; J3490; J7030; J9999; Q0163; Q9967

== ENCOUNTER → 2025-02-16 15:00 | Outpatient (BNVA) | payer MEDICARE, OTHER, SELFPAY | PROVIDERS: PCP Family Medicine; Visit Provider Nurse Practitioner Family | DX: I11.0 Hypertensive heart disease with heart failure (principal); I50.32 Chronic diastolic (congestive) heart failure; Z09 Encounter for follow-up examination after completed treatment for conditions other than malignant neoplasm; I25.5 Ischemic cardiomyopathy; I73.9 Peripheral vascular disease, unspecified; Z79.02 Long term (current) use of antithrombotics/antiplatelets; Z79.82 Long term (current) use of aspirin; Z95.5 Presence of coronary angioplasty implant and graft; I10 Essential (primary) hypertension | CPT/HCPCS: 99214 ==

== ENCOUNTER 2025-02-22 14:08 | Outpatient (CLI) | payer MEDICARE, OTHER, SELFPAY ==
--- NOTE | 2025-02-22 14:16 | XRR_ITS ---
PROCEDURE INFORMATION: Exam: XR Chest Exam date and time: 02/22/2025 2:22 PM Age: 79 years old Clinical indication: Prior surgery; Surgery date: 1-6 months; Surgery type: Heart stents, open heart; Cough for 2 weeks, recent hrt stents TECHNIQUE: Imaging protocol: Radiologic exam of the chest. Views: 2 views. COMPARISON: CR XR chest 1V portable [id number] 11/04/2023 2:45 PM FINDINGS: Lungs: Unremarkable. No consolidation. Pleural spaces: Unremarkable. No pleural effusion. No pneumothorax. Heart/Mediastinum: Unremarkable. No cardiomegaly. Bones/joints: Unremarkable. XR/XR chest 2V* [id number] IMPRESSION: No acute findings.
== END 2025-02-22 14:09 | disposition home or self-care (01) ==
LOC: RAD 14:11
PROVIDERS: PCP Family Medicine; Visit Provider Family Medicine
DX: R50.9 Fever, unspecified (principal); R05.9 Cough, unspecified
CPT/HCPCS: 71046; 80053; 83690; 85025; 86140; 87426

== ENCOUNTER 2025-02-22 15:38 | Emergency (ER) | payer MEDICARE, OTHER, SELFPAY ==
[2025-02-22] VITALS (20 sets, daily range): BP systolic 98–134; BP diastolic 50–87; PULSE 67–79; RESP 14–29; TEMP 36.6; O2SAT 90–98; BMI 32.4
--- OUTSIDE RECORDS SUMMARY | 2025-02-22 15:46 | XMS_ITS | Clinical Summary ---
Author Organization [facility] Address [address] Attn: Epic Prelude ADT JAYNA MONTANO [address] Care Team Providers Care Roll Coverer Name Role Phone Gianfranco Barros DO Primary Care Provide r Allergies No known active allergies Medications ALPRAZolam (XANAX) 0.5 mg tablet Take 0.5 mg by mouth nightly as needed. 2 Active chlorthalidone (HYGROTON) 25 mg tablet Take 25 mg by mouth daily. 2 Active clopidogreL (PLAVIX) 75 mg Tablet Take 75 mg by mouth daily. 2 Active Tresiba FlexTouch U-100 100 unit/mL (3 mL) pen syringe Inject 10 Units by subcutaneous injection daily at bedtime. 2 Active metFORMIN (GLUCOPHAGE XR) 500 mg Extended Release 24 hour tablet Take 500 mg by mouth daily with breakfast. 2 Active omeprazole (PriLOSEC) 20 mg Capsule, Delayed Release(E.C.) Take 20 mg by mouth daily. 2 Active rosuvastatin (CRESTOR) 10 mg tablet Take 10 mg by mouth daily. 2 Active tamsulosin (FLOMAX) 0.4 mg capsule Take 0.4 mg by mouth 2 times daily. 2 Active IRON ORAL Take 1 Tablet by mouth daily. Active oxyCODONE (ROXICODONE) 5 mg tabletIndicatio ns:Status post total right knee replacement Take 1 Tablet (5 mg) by mouth every 4 hours as needed for Pain. No more than 6 tabs daily. Max Daily Amount: 30 mg 42 Tablet 12/29/2021 2:48 PM CDT 2 Active traMADoL (ULTRAM) 50 mg tabletIndicatio ns:Status post total right knee replacement Take 1 Tablet (50 mg) by mouth every 6 hours as needed for Pain. 28 Tablet 12/29/2021 2:48 PM CDT 2 Active polyethylene glycol 3350 (Miralax) 17 gram/dose Powder Take 1 Scoop (17 Grams) by mouth daily. Dissolve in 8 ounces of fluid and drink entire liquid 510 Gram 2 Active ALPRAZolam (XANAX) 0.5 mg tablet 6 Active metoprolol tartrate (LOPRESSOR) 25 mg tablet 6 Active tamsulosin (FLOMAX) 0.4 mg capsule 6 Active lisinopriL (PRINIVIL) 20 mg tablet 6 Active Active Problems Problem Noted Date Diagnosed Date Status post total right knee replacement 022 Chronic pain of right knee 12/05/2021 Ruptured Bakers cyst 06/04/2016 Arthritis of right knee 06/04/2016 Benign hypertension 06/04/2016 History of left knee replacement 06/04/2016 Obesity (BMI 30.0-34.9) 06/04/2016 Hyperlipidemia GERD (gastroesophageal reflux disease) Diabetes Anxiety Abnormal urination Overview (12/05/2021): Trouble starting urination Coronary artery disease Resolved Problems Problem Noted Date Diagnosed Date Resolved Date Preop general physical exam 12/27/2021 Primary osteoarthritis of right knee 12/29/2021 Family History Medical History Relation Name Comments No Known Problems Daughter 1 Sepideh No Known Problems Daughter 2 Elana Heart Disease Father Breast Cancer Mother No Known Problems Son Charly Relation Name Status Comments Daughter 1 Sepideh Alive Daughter 2 Elana Alive Father Mother Son Charly Alive Social History Tobacco Use Types Packs/Day Years Used Date Smoking Tobacco: Never Smokeless Tobacco: Never Alcohol Use Standard Drinks/Week Comments Yes 0 (1 standard drink = 0.6 oz pure alcohol) occassional, not weekly, bourbun 1 x monthly Sex and Gender Information Value Date Recorded Sex Assigned at Not on file 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 Gender Identity Not on file Sexual Orientation Not on file Last Filed Vital Signs Vital Sign Reading Time Taken Comments Blood Pressure 130/72 12/28/2022 9:01 AM CDT Pulse 85 01/25/2022 2:16 PM CDT Temperature 36.7 C (98 F) 12/29/2021 8:05 AM CDT Respiratory Rate 17 12/29/2021 8:05 AM CDT Oxygen Saturation 92% 12/29/2021 8:05 AM CDT Inhaled Oxygen Concentration - - Weight 90.3 kg (199 lb) 12/28/2022 9:01 AM CDT Height 170.2 cm (5' 7 ) 12/28/2022 9:01 AM CDT Body Mass Index 31.17 12/28/2022 9:01 AM CDT Plan of Treatment Health Maintenance Due Date Last Done Comments DIABETES ANNUAL FOOT EXAM 12/08/1965 DIABETES ANNUAL RETINAL EXAM 12/08/1965 DIABETES MICROALBUMIN ANNUAL SCREEN 12/08/1965 LDL CHOLESTEROL ANNUAL 12/08/1965 DTAP/TDAP/TD VACCINES (1 - Tdap) 12/08/1966 PNEUMOCOCCAL VACCINE 50+ YEARS (1 of 2 - PCV) 12/08/18 67 ZOSTER VACCINE (1 of 2) 12/08/1997 DIABETES HBA1C Q 6 MONTHS 06/07/2022 12/05/2021 RSV VACCINE (60+ or ) (1 - 1-dose 75+ series) 12/08/2022 INFLUENZA VACCINE (#1) 2025 Medical Devices Implanted Type Area Director Non Profit Device Identifier Shelf Expiration Date Model / Serial / Lot Insert Attune Fb Cr Sz6 7mm [id number] - [id number] Implanted:Qty: 1 on 12/28/2021 by Hector Yadav MD at [facility] Knee Right: Knee [employer] [id number] 10/02/2026 [id number] / / [id number] Comp Fem Attune Rt Delon Sz6 Implanted:Qty: 1 on 12/28/2021 by Hector Yadav MD at [facility] Right: Knee [id number] 06/04/2031 [id number] / / [id number] Tibial Base Size 6 Implanted:Qty: 1 on 12/28/2021 by Hector Yadav MD at [facility] Right: Knee 10/03/2031 [id number] / / [id number] Procedures Procedure Name Priority Date/Time Associated Diagnosis Comments HEMOGLOBIN A1C Routine 12/05/2021 1:50 PM CDT from Last 3 Months or Most Recently Relevant to Health Maintenance Results * (ABNORMAL) HEMOGLOBIN A1C (12/05/2021 1:50 PM CDT) HEMOGLOBIN A1C 6.5(H) <=5.6 % 12/05/2021 2:09 PM CDT [facility] EST. AVG GLUCOSE, A1C 140 mg/dL 12/05/2021 2:09 PM CDT [facility] Blood Venipuncture / Unknown 12/05/2021 1:50 PM CDT 12/05/2021 1:52 PM CDT Narrative [facility] - 12/05/2021 2:09 PM CDT HGB A1C INTERPRETATION NORMAL: <5.7% PRE-DIABETES: 5.7 - 6.4% DIABETES: 6.5% OR GREATER us Gera Farley MD CHEMISTRY ORDERABLES Final Resu lt [facility] CLIA #[id number] [address] [place], [place] [address] from Last 3 Months or Most Recently Relevant to Health Maintenance Insurance [facility] MEDICARE PART A AND B [facility] [place] [id number] RX [employer] Medicare Part D RX [employer] (INTERNAL) [facility] Care Teams Roll Coverer Relationship Specialty Start Date End Date Gianfranco Barros DO [address] [facility] [address] [place] [address] PCP - General Internal Medicine 12/28/21
--- OUTSIDE RECORDS SUMMARY | 2025-02-22 15:46 | XMS_ITS | Clinical Summary ---
Author Organization [facility] Address [address] [place] [address] Care Team Providers Care Knowledge Analyst Name Role Phone Unavailable Primary Care Provider Unavailabl e Allergies No known active allergies Medications lisinopril (PRINIVIL) 20 mg tablet 04/06/2016 Active tamsulosin (FLOMAX) 0.4 mg capsule 04/06/2016 Active ALPRAZolam (XANAX) 0.5 mg tablet 03/27/2016 Activ e metoprolol tartrate (LOPRESSOR) 25 mg tablet 03/01/2016 Active Active Problems Problem Noted Date Diagnosed Date Arthritis of right knee 06/04/2016 History of left knee replacement 06/04/2016 Ruptured Bakers cyst 06/04/2016 Benign hypertension 06/04/2016 Obesity (BMI 30.0-34.9) 06/04/2016 Social History Tobacco Use Types Packs/Day Years Used Date Smoking Tobacco: Never Smokeless Tobacco: Never Alcohol Use Standard Drinks/Week Comments Yes 0 (1 standard drink = 0.6 oz pur e alcohol) Sex and Gender Information Value Date Recorded Sex Assigned at Not on file 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 Gender Identity Not on file Sexual Orientation Not on file Last Filed Vital Signs Vital Sign Reading Time Taken Comments Blood Pressure 143/74 06/04/2016 1:36 PM CDT Pulse 67 06/04/2016 1:36 PM CDT Temperature - - Respiratory Rate - - Oxygen Saturation - - Inhaled Oxygen Concentration - - Weight 95.3 kg (210 lb) 06/04/2016 1:36 PM CDT Height 170.2 cm (5' 7 ) 06/04/2016 1:36 PM CDT Body Mass Index 32.89 06/04/2016 1:36 PM CDT Plan of Treatment Health Maintenance Due Date Last Done Comments DTAP/TDAP/TD VACCINES (1 - Tdap) 12/08/1966 PNEUMOCOCCAL VACCINE 50+ YEARS (1 of 1 - PCV) 12/08/18 98 ZOSTER VACCINE (1 of 2) 12/08/1997 RSV VACCINE (60+ or ) (1 - 1-dose 75+ series) 12/08/2022 INFLUENZA VACCINE (#1) 2025 Insurance MEDICARE PART A AND B
--- NOTE | 2025-02-22 16:27 | XRR_ITS ---
PROCEDURE INFORMATION: Exam: XR Chest Exam date and time: 02/22/2025 4:28 PM Age: 79 years old Clinical indication: Shortness of breath; Prior surgery; Surgery date: 6+ months; Surgery type: Open heart stents; Additional info: SOB TECHNIQUE: Imaging protocol: Radiologic exam of the chest. Views: 1 view. COMPARISON: CR XR chest 2V* [id number] 02/22/2025 2:22 PM FINDINGS: Lungs: Slightly increased left basilar streaky opacities. No focal consolidation. Pleural spaces: Unremarkable. No pleural effusion. No pneumothorax. Heart/Mediastinum: Stable cardiomediastinal silhouette. Vasculature: Mildly tortuous thoracic aorta with atherosclerotic calcifications. Bones/joints: Post median sternotomy and CABG. ACDF hardware appears intact. XR/XR chest 1V portable [id number] IMPRESSION: Slightly increased streaky left basilar opacities could represent atelectasis versus infiltrate.
--- NOTE | 2025-02-22 16:27 | CTR_ITS ---
PROCEDURE INFORMATION: Exam: CT Abdomen And Pelvis Without Contrast Exam date and time: 02/22/2025 5:43 PM Age: 79 years old Clinical indication: Vomiting TECHNIQUE: Imaging protocol: Computed tomography of the abdomen and pelvis without contrast. Radiation optimization: All CT scans at this facility use at least one of these dose optimization techniques: automated exposure control; mA and/or kV adjustment per patient size (includes targeted exams where dose is matched to clinical indication); or iterative reconstruction. COMPARISON: CR XR hip BI 3-4V wo/w pel [id number] 05/25/2024 2:33 PM RADIATION DOSE METRICS: Total DLP (mGy-cm): 921.65 FINDINGS: Coronary arteries: Coronary arterial atherosclerotic calcifications are present. Liver: Normal. No mass. Gallbladder and biliary ducts: Normal. No calcified stones. No ductal dilation. Pancreas: Normal. No ductal dilation. Spleen: Normal. No splenomegaly. Adrenal glands: Normal. No mass. Kidneys and ureters: There is a 3.1 cm hyperdense structure in the posterolateral cortex of the right kidney measuring 51 Hounsfield units which is indeterminate. A three-phase renal CT or renal MRI may be of benefit to more fully characterize this finding. Stomach and bowel: There is apparent circumferential bowel wall thickening of the proximal to mid stomach which may be due to underdistention but gastritis can also have this appearance. Appendix: No evidence of appendicitis. Intraperitoneal space: Unremarkable. No free air. No significant fluid collection. 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 Lymph nodes: Unremarkable. No enlarged lymph nodes. Urinary bladder: Unremarkable as visualized. Reproductive: Unremarkable as visualized. Bones/joints: Unremarkable. No acute fracture. Soft tissues: Unremarkable. CT/CT abdomen pelvis wo con [id number] IMPRESSION: 1. There is apparent circumferential bowel wall thickening of the proximal to mid stomach which may be due to underdistention but gastritis can also have this appearance. 2. There is a 3.1 cm hyperdense structure in the posterolateral cortex of the right kidney measuring 51 Hounsfield units which is indeterminate. A three-phase renal CT or renal MRI may be of benefit to more fully characterize this finding. COMMENTS: Consistent with the [employer]'s Incidental Findings Committee white paper (J Am Jennifer Radiol 2018): Any incidental renal lesion less than 1 cm or classified as too small to characterize, or any incidental cystic renal lesion characterized as simple-appearing, is likely benign. No follow-up imaging is recommended for these lesions per consensus recommendations based on imaging criteria.
--- NOTE | 2025-02-22 16:32 | CTR_ITS ---
PROCEDURE INFORMATION: Exam: CT Head Without Contrast Exam date and time: 02/22/2025 5:40 PM Age: 79 years old Clinical indication: Weakness, extremity; Bilateral TECHNIQUE: Imaging protocol: Computed tomography of the head without contrast. Radiation optimization: All CT scans at this facility use at least one of these dose optimization techniques: automated exposure control; mA and/or kV adjustment per patient size (includes targeted exams where dose is matched to clinical indication); or iterative reconstruction. COMPARISON: No relevant prior studies available. RADIATION DOSE METRICS: Total DLP (mGy-cm): 1251.43 FINDINGS: Brain: Moderate generalized cortical volume loss with prominence of the ventricles and cortical sulci. No hemorrhage. Periventricular and subcortical white matter hypodensities likely represent chronic small vessel ischemic changes. No mass effect. Old lacunar infarct in the right thalamus. Cerebral ventricles: No ventriculomegaly. Paranasal sinuses: Visualized sinuses are unremarkable. No fluid levels. Mastoid air cells: Visualized mastoid air cells are well aerated. Bones: Unremarkable. No acute fracture. Soft tissues: Unremarkable. Vasculature: Vascular calcifications along the carotid siphons and intracranial portions of bilateral vertebral arteries. CT/CT head wo con* [id number] IMPRESSION: 1. No acute intracranial abnormality. 2. Chronic/age-related changes as above.
--- NOTE | 2025-02-22 16:32 | W.ED.WEAKNES ---
HPI - Weakness General: Chief complaint: Weakness Stated complaint: Dr grissom sent for dehydration Time Seen by Provider: 02/22/25 16:23 Source: patient Mode of arrival: ambulatory Limitations: no limitations History of Present Illness: 79-year-old male states that he has been feeling generally weak over the last 5 days. He states he had a tick bite 1 month ago states the last 5 days he has had generalized weakness had some nausea decreased appetite dry mouth. States he is also had had some diffuse mild abdominal pains and a cough. States she has had 2 falls due to feeling weak. Had some low-grade fevers at home denies any worse improved factors Related Data Home Medications ?Medication ?Instructions ?Recorded ?Confirmed omeprazole 20 mg capsule,delayed 20 mg PO DAILY 09/20/21 02/22/25 release alprazolam 0.5 mg tablet 0.5 mg PO DAILY 11/04/23 02/22/25 furosemide 40 mg tablet (Lasix) 40 mg PO DAILY PRN fluid retention 07/21/24 02/22/25 aspirin 81 mg tablet,delayed 81 mg PO DAILY 09/14/24 02/22/25 release Previous Rx's ?Medication ?Instructions ?Recorded carvedilol 3.125 mg tablet 3.125 mg PO BID #180 tabs 04/22/24 valsartan 160 mg tablet 160 mg PO QAM #90 tabs 05/27/24 potassium chloride 20 mEq 20 meq PO DAILY #90 tabs 06/24/24 tablet,extended release amlodipine 5 mg tablet 5 mg PO BID #180 tabs 07/22/24 clopidogrel 75 mg tablet 75 mg PO DAILY #90 tabs 09/14/24 hydrocodone 10 mg-acetaminophen 1 tab PO BID PRN pain 1 month #60 09/14/24 325 mg tablet tabs rosuvastatin 10 mg tablet 10 mg PO DAILY #90 tabs 09/14/24 metformin 500 mg tablet,extended See Rx Instructions .Route 10/14/24 release 24 hr .COMPLEX #180 tabs isosorbide mononitrate 30 mg 30 mg PO DAILY #90 tabs 11/30/24 tablet,extended release 24 hr nitroglycerin 0.4 mg sublingual 0.4 mg sublingual Q5M PRN Chest 11/30/24 tablet (Nitrostat) Pain #20 tabs tamsulosin 0.4 mg capsule 0.4 mg PO BID #180 caps 12/03/24 duloxetine 30 mg capsule,delayed 30 mg PO DAILY #30 caps 12/31/24 release insulin glargine 100 unit/mL (3 20 unit (0.2 mL) SUBCUT BID #15 mL 02/16/25 mL) subcutaneous pen (Lantus Solostar U-100 Insulin) cephalexin 500 mg capsule 500 mg PO TID 7 days #21 caps 02/22/25 doxycycline hyclate 100 mg tablet 100 mg PO BID 7 days #14 tabs 02/22/25 Allergies Allergy/AdvReac Type Severity Reaction Status Date / Time No Known Allergies Allergy Verified 02/22/25 15:58 PFSH ED PFSH: Medical History (Updated 02/22/25 @ 19:00 by Kaye Bowman MD) PAD (peripheral artery disease) Orthostatic hypotension History of nonmelanoma skin cancer Urinary retention Recurrent UTI BPH loc w urin obs/LUTS Lower urinary tract symptoms (LUTS) Depression Type 2 diabetes mellitus Atherosclerosis of coronary artery of [place] heart EKG revealed a sinus rhythm with some specific T wave changes in the high lateral leads. Voltage criteria for LVH. No significant new changes Arthritis Hyperlipidemia Degenerative arthritis of right knee Coronary artery disease Diabetes Hypertension Cataract Rotator cuff tear arthropathy of both shoulders Carpal tunnel syndrome of right wrist Surgical History H/O heart bypass surgery History of knee replacement History of shoulder surgery History of eye surgery History of neck surgery History of lumbar laminectomy H/O arthroscopy of right knee History of carpal tunnel surgery of left wrist Family History Mother , at age 71 Cancer breast Father , at age 65 Diabetes CAD (coronary artery disease) Denies family history of Clotting disorder Dementia Chronic kidney disease (CKD) Suicide Anesthesia complication Bleeding disorder Lung disease Stroke Social History Smoking and tobacco/nicotine status: never used tobacco/nicotine Alcohol intake: current Alcohol intake frequency: few times a week Marital status: Current occupational status: retired Course Vital Signs: Vital signs: Vital Signs Temperature 97.9 F 02/22/25 15:54 Pulse Rate 67 02/22/25 18:35 Respiratory Rate 24 H 02/22/25 18:35 Blood Pressure 113/63 02/22/25 18:35 Pulse Oximetry 93 02/22/25 18:35 Oxygen Delivery Me thod Room Air 02/22/25 15:54 MDM - Weakness Medical Decision Making Patient presents here with some increased weakness has likely pneumonia along with a UTI. Does have some mild acute kidney injury. Did give him IV fluids he feels much improved I strongly recommended admission for his acute kidney injury along with infection. He states he has been admitted before and he does not want to be admitted and wants to go home. I did strongly recommend that he should be admitted but he decided that he wanted to be discharged. He is to drink plenty of fluids we will start him on antibiotics informed if he changes mind or worsens he is return he understands agrees to plan. Medical Records I reviewed the patient's medical records. Lab Data I reviewed the patient's lab results. 02/22/25 16:24 02/22/25 16:24 Radiology Impressions Abdomen/Pelvis CT 02/22/25 16:27 IMPRESSION: 1. There is apparent circumferential bowel wall thickening of the proximal to mid stomach which may be due to underdistention but gastritis can also have this appearance. 2. There is a 3.1 cm hyperdense structure in the posterolateral cortex of the right kidney measuring 51 Hounsfield units which is indeterminate. A three-phase renal CT or renal MRI may be of benefit to more fully characterize this finding. COMMENTS: Consistent with the [place] [employer]'s Incidental Findings Committee white paper (J Am Jennifer Radiol 2018): Any incidental renal lesion less than 1 cm or classified as too small to characterize, or any incidental cystic renal lesion characterized as simple-appearing, is likely benign. No follow-up imaging is recommended for these lesions per consensus recommendations based on imaging criteria. Chest X-Ray 02/22/25 16:27 IMPRESSION: Slightly increased streaky left basilar opacities could represent atelectasis versus infiltrate. Head CT 02/22/25 16:32 IMPRESSION: 1. No acute intracranial abnormality. 2. Chronic/age-related changes as above. Laboratory Results WBC 8.90 10^3/uL (3.29-11.43) 02/22/25 16:24 RBC 5.00 10^6/uL (3.85-5.65) 02/22/25 16:24 Hgb 14.30 g/dL (11.27-16.99) 02/22/25 16:24 Hct 44.3 % (37-53) 02/22/25 16:24 MCV 88.6 fl (82-101) 02/22/25 16:24 MCH 28.6 pg (27-33) 02/22/25 16:24 MCHC 32.3 g/dL (30-55) 02/22/25 16:24 RDW 13.0 % (12.1-15.1) 02/22/25 16:24 Plt Count 228 10^3/cmm (157-399) 02/22/25 16:24 MPV 11.0 fL (7.4-10.4) H 02/22/25 16:24 Neut % (Auto) 71.1 % 02/22/25 16:24 Lymph % (Auto) 10.1 % 02/22/25 16:24 [place] % (Auto) 16.5 % 02/22/25 16:24 Eos % (Auto) 1.3 % 02/22/25 16:24 Baso % (Auto) 0.3 % 02/22/25 16:24 Neut # (Auto) 6.32 10^3/uL (1.8-7.7) 02/22/25 16:24 Lymph # (Auto) 0.9 10^3/uL (0.8-4.8) 02/22/25 16:24 [place] # (Auto) 1.5 10^3/uL (0.2-0.9) H 02/22/25 16:24 Eos # (Auto) 0.1 10^3/uL (0.0-0.8) 02/22/25 16:24 Baso # (Auto) 0.0 10^3/uL (0.0-0.1) 02/22/25 16:24 Nucleated RBC % (auto) 0 % 02/22/25 16:24 Nucleated RBCs # 0.0 /100WBC 02/22/25 16:24 Sodium 133 mmol/L (136-145) L 02/22/25 16:24 Potassium 4.5 mmol/L (3.5-5.1) 02/22/25 16:24 Chloride 97 mmol/L (98-107) L 02/22/25 16:24 Carbon Dioxide 21 mmol/L (22-29) L 02/22/25 16:24 Anion Gap 19.5 (5-19) H 02/22/25 16:24 BUN 31 mg/dL (8-23) H 02/22/25 16:24 Creatinine 2.9 mg/dL (0.7-1.2) H 02/22/25 16:24 GFR Calculation Not Reportable 02/22/25 16:24 Glucose 179 mg/dL (65-115) H 02/22/25 16:24 Calculated Osmolality 287 mOsm/kg (285-295) 02/22/25 16:24 Calcium 9.0 mg/dL (8.5-10.5) 02/22/25 16:24 Total Bilirubin 1.5 mg/dL (0.15-1.2) H 02/22/25 16:24 AST 51 U/L (0-40) H 02/22/25 16:24 ALT 52 U/L (0-41) H 02/22/25 16:24 Alkaline Phosphatase 266 U/L (40-130) H 02/22/25 16:24 Troponin T Baseline Cancelled 02/22/25 16:24 Troponin T 120 Minute Cancelled 02/22/25 18:30 Delta Troponin T Cancelled 02/22/25 18:30 Total Protein 6.9 g/dL (6.6-8.7) 02/22/25 16:24 Albumin 3.1 g/dL (3.5-5.2) L 02/22/25 16:24 Globulin 3.8 g/dL (1.3-4.6) 02/22/25 16:24 Lipase 27 U/L (13-60) 02/22/25 16:24 TSH 3.61 uIU/mL (0.27-4.20) 02/22/25 16:24 Urine Color Dark yellow (Yellow) A 02/22/25 17:24 Urine Appearance Turbid (CLEAR) A 02/22/25 17:24 Urine pH 6.0 (5-7) 02/22/25 17:24 Ur Specific [place] 1.017 (1.005-1.030) 02/22/25 17:24 Urine Protein 3+ (Negative) A 02/22/25 17:24 Urine Glucose (UA) Negative (Normal) 02/22/25 17:24 Urine Ketones Trace (Negative) 02/22/25 17:24 Urine Blood 2+ (Negative) A 02/22/25 17:24 Urine Nitrate Positive (Negative) A 02/22/25 17:24 Urine Bilirubin 1+ (Negative) H 02/22/25 17:24 Urine Urobilinogen 4.0 mg/dL (Negative) H 02/22/25 17:24 Ur Leukocyte Esterase 3+ (Negative) A 02/22/25 17:24 Urine RBC 15-25 /hpf (0-2) H 02/22/25 17:24 Urine WBC >100 /hpf (0-5) H 02/22/25 17:24 Ur Squamous Epith Cells None /hpf (0-5) 02/22/25 17:24 Amorphous Sediment Not Reportable 02/22/25 17:24 Urine Bacteria 4+ /hpf (NONE) H 02/22/25 17:24 Hyaline Casts 10-15 /lpf H 02/22/25 17:24 Coarse Granular Casts 5-10 /lpf H 02/22/25 17:24 All radiology interpretation(s) finalized by discharge Discharge Plan Discharge Patient Disposition: Home Clinical Impression: Acute kidney injury, Pneumonia, Acute cystitis Condition: Stable Prescriptions: New doxycycline hyclate 100 mg tablet 100 mg PO BID 7 Days Qty: 14 0RF cephalexin 500 mg capsule 500 mg PO TID 7 Days Qty: 21 0RF No Action omeprazole 20 mg capsule,delayed release(DR/EC) 20 mg PO DAILY isosorbide mononitrate 30 mg tablet extended release 24 hr 30 mg PO DAILY Qty: 90 3RF nitroglycerin [Nitrostat] 0.4 mg tablet, sublingual 0.4 mg SUBLINGUAL Q5M PRN (Reason: Chest Pain) Qty: 20 3RF aspirin 81 mg tablet,delayed release (DR/EC) 81 mg PO DAILY rosuvastatin 10 mg tablet 10 mg PO DAILY Qty: 90 3RF clopidogrel 75 mg tablet 75 mg PO DAILY Qty: 90 1RF hydrocodone-acetaminophen 10-325 mg tablet 1 tab PO BID PRN (Reason: pain) 30 Days Qty: 60 0RF tamsulosin 0.4 mg capsule 0.4 mg PO BID Qty: 180 3RF duloxetine 30 mg capsule,delayed release(DR/EC) 30 mg PO DAILY Qty: 30 11RF Rx Instructions: take once a day x 2 weeks then increase to 2 tabs daily insulin glargine [Lantus Solostar U-100 Insulin] 100 unit/mL (3 mL) insulin pen 20 unit SUBCUT BID Qty: 15 11RF Patient Comments: LAST ADMIN WAS 1/2 SCHEDULED DOSING carvedilol 3.125 mg tablet 3.125 mg PO BID Qty: 180 3RF Rx Instructions: must administer with a meal/food furosemide [Lasix] 40 mg tablet 40 mg PO DAILY PRN (Reason: fluid retention) valsartan 160 mg tablet 160 mg PO QAM Qty: 90 3RF potassium chloride 20 mEq tablet extended release 20 meq PO DAILY Qty: 90 3RF amlodipine 5 mg tablet 5 mg PO BID Qty: 180 3RF metformin 500 mg tablet extended release 24 hr See Rx Instructions .ROUTE .COMPLEX Qty: 180 3RF Dose Instruction: TAKE ONE TABLET BY MOUTH TWICE DAILY Rx Instructions: TAKE ONE TABLET BY MOUTH TWICE DAILY alprazolam 0.5 mg tablet 0.5 mg PO DAILY Discharge Orders: Discharge ED (Routine); Ordered 02/22/25 Ordered By: Kaye Bowman Referrals: Gavin Grissom MD [Primary Care Provider, Family Practice] - 1-3 days Discharge Diet: Advance as tolerated Discharge Activity: Resume usual activity Patient Instructions: Acute Kidney Injury (DC), Urinary Tract Infection in Men (ED), Bacterial Pneumonia (ED) Print Language: [place] Coding Level of Care Code ED Senior Market Intelligence Consultant for Olesya Grant
[2025-02-22 16:33] LABS: Hematocrit 44.3 % (37-53); Hemoglobin 14.30 g/dL (11.27-16.99); Mean Corpuscular HGB Conc 32.3 g/dL (30-55); Mean Corpuscular Hemoglobin 28.6 pg (27-33); Mean Corpuscular Volume 88.6 fl (82-101); Nucleated Red Blood Cells % 0 %; Platelet Count 228 10^3/cmm (157-399); Red Blood Count 5.00 10^6/uL (3.85-5.65); White Blood Count 8.90 10^3/uL (3.29-11.43)
--- NOTE | 2025-02-22 16:37 | ECG_ITS ---
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 Measurements Intervals [place] Rate: 75 P: 55 MO: 168 QRS: -63 QRSD: 129 T: 15 QT: 411 QTc: 459 Interpretive Statements SINUS RHYTHM RIGHT BUNDLE BRANCH BLOCK [120+ ms QRS DURATION, UPRIGHT V1, 40+ ms S IN I/aVL/V4/V5/V6] LEFT ANTERIOR FASCICULAR BLOCK [QRS AXIS <= -45, QR IN I, RS IN II] MINIMAL VOLTAGE CRITERIA FOR LVH, CONSIDER NORMAL VARIANT [MEETS CRITERIA IN ONE OF: R(aVL), S(V1), R(V5), R(V5/V6)+S(V1)] POSSIBLE ANTERIOR MYOCARDIAL INFARCTION , PROBABLY OLD [30 ms Q WAVE IN V3/V4, OR R < 0.2 mV IN V4] Compared to ECG 11/04/2023 16:45:09 Myocardial infarct finding now present ST (T wave) deviation no longer present Electronically Signed On 02-22-2025 16:53:18 CDT by Dick Briggs M.D. [email or web address] [id number]
[2025-02-22] MEDS: ondansetron 2 mg/ML SDV 2 mL 4 MG IVP (16:39)
[2025-02-22 16:52] LABS: Alanine Aminotransferase 52 U/L (0-41); Albumin Level 3.1 g/dL (3.5-5.2); Alkaline Phosphatase 266 U/L (40-130); Anion Gap 19.5 (5-19); Aspartate Amino Transferase 51 U/L (0-40); Blood Urea Nitrogen 31 mg/dL (8-23); Calcium 9.0 mg/dL (8.5-10.5); Carbon Dioxide 21 mmol/L (22-29); Chloride 97 mmol/L (98-107); Creatinine Clr Calc Pharmacy 23.2984; Globulin 3.8 g/dL (1.3-4.6); Glucose 179 mg/dL (65-115); Lipase 27 U/L (13-60); Osmolality Calculated 287 mOsm/kg (285-295); Potassium 4.5 mmol/L (3.5-5.1); Sodium 133 mmol/L (136-145); Total Protein 6.9 g/dL (6.6-8.7)
[2025-02-22 18:07] LABS: Glucose Urine UA Negative (Normal); Nitrate Urine Positive (Negative); Specific Gravity, Urine 1.017 (1.005-1.030)
[2025-02-22 18:09] LABS: Add Urine Microscopic? YES
[2025-02-22] MEDS: cefTRIAXone 1,000 mg SDV 1000 MG IVP (18:33)
[2025-02-22] MEDS: AZITHROMYCIN ADD-Vantage 500 MG in 0.9% NaCl ADD-Vantage 250 ML 250 MG IV (18:39)
--- NOTE | 2025-02-22 18:43 | ECG_ITS ---
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
[2025-02-22 18:58] LABS: UA Manual Slide Review YES; UA Slide Review UA Slide Review Perf
[2025-02-22 19:30] LABS: Thyroid Stimulating Hormone 3.61 uIU/mL (0.27-4.20)
== END 2025-02-22 19:55 | disposition home or self-care (01) ==
PROVIDERS: Emergency Provider Emergency Medicine; PCP Family Medicine
DX: N17.9 Acute kidney failure, unspecified (principal); J18.9 Pneumonia, unspecified organism; N30.00 Acute cystitis without hematuria
CPT/HCPCS: 36415; 70450; 71045; 74176; 80053; 81001; 83690; 84443; 85025; 86618; 86666; 86757; 87040; 87077; 87086; 87186; 93005; 96361; 96365; 96375; 99285; J0456; J0696; J2405; J7030; J7050

== ENCOUNTER → 2025-02-24 10:07 | Outpatient (BNVA) | payer MEDICARE, OTHER, SELFPAY | PROVIDERS: PCP Family Medicine; Visit Provider Family Medicine | DX: R50.9 Fever, unspecified (principal) | CPT/HCPCS: 80053; 85025; 86140 ==

== ENCOUNTER → 2025-03-01 11:25 | Outpatient (BNVA) | payer MEDICARE, OTHER, SELFPAY | PROVIDERS: PCP Family Medicine; Visit Provider Family Medicine | DX: R50.9 Fever, unspecified (principal) | CPT/HCPCS: 80053 ==

== ENCOUNTER → 2025-04-14 10:21 | Outpatient (BNVA) | payer MEDICARE, OTHER, SELFPAY | PROVIDERS: PCP Family Medicine; Visit Provider Family Medicine | DX: J18.9 Pneumonia, unspecified organism (principal) | CPT/HCPCS: 80053; 85025 ==

== ENCOUNTER → 2025-04-20 10:55 | Outpatient (BNVA) | payer MEDICARE, OTHER, SELFPAY | PROVIDERS: PCP Family Medicine; Visit Provider Family Medicine | DX: R53.1 Weakness (principal) | CPT/HCPCS: 80048; 85025 ==

== ENCOUNTER 2025-04-30 14:19 | Outpatient (CLI) | payer MEDICARE, SELFPAY ==
--- NOTE | 2025-04-30 14:30 | US_ITS ---
WS: [id number] RENAL ULTRASOUND HISTORY: f/u on renal cyst and elevated Cr COMPARISON: Ultrasound 05/29/2021, CT 02/22/2025, 08/03/2024 TECHNIQUE: 2-D and color Doppler imaging of the kidney submitted. Right kidney: 11.1 cm x 6.1 cm x 7.2 cm. Cortex: 2.1 cm Normal size kidney. No hydronephrosis. Exophytic cystic mass from the lateral kidney measures 2.4 x 2.9 x 2.9 cm. There is a small calcification within the wall. There is through transmission. No increased vascularity. This cystic mass has been described on prior imaging studies including a CT from 08/03/2024 without significant increase in size. Recent increased density on a noncontrast CT may have been secondary to hemorrhage. There is a smaller cortical hypodensity which is too small to characterize from the medial kidney with a maximum diameter of 8 mm. Left kidney: 11.0 cm x 5.6 cm x 7.9 cm. Cortex: 1.9 cm Normal echogenicity with no hydronephrosis or mass. Aorta: Poorly visualized. Urinary Bladder: Nondistended bladder. No intraluminal filling defect. US/US renal BI* [id number] IMPRESSION: 1. Minimally complex RIGHT renal cyst. This cyst was identified as hyperdense on a recent noncontrast CT. Increased attenuation was likely due to intracystic hemorrhage. By ultrasound there is only a single echogenic focus in the wall o f this cyst. With history of elevated creatinine consider serial evaluation by ultrasound. Recommend follow-up ultrasound in 3 months. This will help determi ne long-term stability. Favor this is probably a minimally complex cyst. 2. No solid mass or renal obstruction.
== END 2025-04-30 14:20 | disposition home or self-care (01) ==
LOC: RAD 14:23
PROVIDERS: PCP Family Medicine; Visit Provider Family Medicine
DX: R79.89 Other specified abnormal findings of blood chemistry (principal)
CPT/HCPCS: 76770

== ENCOUNTER → 2025-05-05 12:49 | Outpatient (BNVA) | payer MEDICARE, OTHER, SELFPAY | PROVIDERS: PCP Family Medicine; Visit Provider Family Medicine | DX: E11.65 Type 2 diabetes mellitus with hyperglycemia (principal) | CPT/HCPCS: 80048; 83036 ==

== ENCOUNTER → 2025-06-07 14:53 | Outpatient (BNVA) | payer MEDICARE, OTHER, SELFPAY | PROVIDERS: PCP Family Medicine; Visit Provider Internal Medicine Cardiovascular Disease | DX: I73.9 Peripheral vascular disease, unspecified (principal); I25.10 Atherosclerotic heart disease of native coronary artery without angina pectoris; M17.0 Bilateral primary osteoarthritis of knee; M16.0 Bilateral primary osteoarthritis of hip; Z96.653 Presence of artificial knee joint, bilateral; E11.42 Type 2 diabetes mellitus with diabetic polyneuropathy; Z79.4 Long term (current) use of insulin | CPT/HCPCS: 99214 ==

== ENCOUNTER 2025-07-12 12:57 | Outpatient (CLI) | payer MEDICARE, OTHER, SELFPAY ==
--- NOTE | 2025-07-12 13:09 | XR_ITS ---
WS: [email or web address] XR chest 2V* [id number] REASON FOR EXAM: cough FINDINGS: Sternal sutures. Previous coronary artery bypass surgery and coronary artery stents. There is mild cardiomegaly and mild to moderate tortuosity and ectasia of the thoracic aorta. Mild central pulmonary venous congestion. Reticular interstitial and groundglass lung opacities in both lower lung pino with areas of atelectasis. Bilateral pleural effusions. These abnormalities were not present on the previous CT scan of the abdomen and pelvis 02/22/2025. XR/XR chest 2V* [id number] IMPRESSION: Findings suggesting chronic congestive failure. Less likely subacute pneumoniti s.
== END 2025-07-12 12:58 | disposition home or self-care (01) ==
LOC: RAD 13:01
PROVIDERS: PCP Family Medicine; Visit Provider Family Medicine
DX: J18.9 Pneumonia, unspecified organism (principal); I10 Essential (primary) hypertension; E78.2 Mixed hyperlipidemia
CPT/HCPCS: 71046; 80053; 83880; 84484; 85025; 86140

== ENCOUNTER 2025-07-12 14:00 | Inpatient (IN) | payer MEDICARE, OTHER, SELFPAY ==
[2025-07-12] VITALS (7 sets, daily range): BP systolic 104–133; BP diastolic 59–79; PULSE 74–87; RESP 16–22; TEMP 36.6–36.9; O2SAT 90–95; BMI 30.4
--- NOTE | 2025-07-12 14:06 | XR_ITS ---
WS: [email or web address] XR chest 1V portable [id number] REASON FOR EXAM: cp FINDINGS: Chest is unchanged compared to the examination of 1:28 p.m. 07/12/2025. There are reticular interstitial and groundglass opacities in the lower lung pino and blunting of the costophrenic angles consistent with pleural effusions. Severe osteoarthritis in both shoulders. XR/XR chest 1V portable [id number] IMPRESSION: Chest is unchanged compared to the examination of earlier this afternoon. Chronicity of the abnormalities unknown but not present on previous chest x-ray or CT abdomen and pelvis 02/22/2025.
--- NOTE | 2025-07-12 14:21 | ECG_ITS ---
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 Measurements Intervals [place] Rate: 80 P: 10 AR: 170 QRS: -59 QRSD: 132 T: 118 QT: 401 QTc: 465 Interpretive Statements SINUS RHYTHM RIGHT BUNDLE BRANCH BLOCK [120+ ms QRS DURATION, UPRIGHT V1, 40+ ms S IN I/aVL/V4/V5/V6] LEFT ANTERIOR FASCICULAR BLOCK [QRS AXIS <= -45, QR IN I, RS IN II] POSSIBLE ANTERIOR MYOCARDIAL INFARCTION , PROBABLY OLD [30 ms Q WAVE IN V3/V4, OR R < 0.2 mV IN V4] MODERATE T-WAVE ABNORMALITY, CONSIDER LATERAL ISCHEMIA [-0.1+ mV T-WAVE IN I/aVL/V5/V6] Compared to ECG 02/22/2025 18:43:09 NO SIGNIFICANT CHANGE Electronically Signed On 07-14-2025 22:32:30 COMMERCIAL CREDIT HEAD by Arcadio Camilo M.D. [id number] [id number]
--- NOTE | 2025-07-12 14:46 | W.ED.RECABL ---
HPI - Recheck/Abnormal Lab/Rx General: Chief Complaint: Recheck/Abnormal Lab/Rx Stated Complaint: spurling sent, chest tightness Time Seen by Provider: 07/12/25 14:28 History of Present Illness: 79-year-old male with known history of of coronary artery disease. He was seen by his primary care doctor did some lab testing showed significant elevation of his troponin. He was referred to the emergency room. Patient has been having increasing anginal symptoms with exertion. Patient states he cannot walk more than 20 to 25 feet without having significant shortness of breath and heaviness in his chest. He has been progressively worsening is actually scheduled in 3 days for an elective angiogram. He had recently had a pneumonia was treated with antibiotics seem like he got better and the symptoms began and persisted and have been increasing in intensity and frequency. Related Data Home Medications ?Medication ?Instructions ?Recorded ?Confirmed aspirin 81 mg tablet,delayed 81 mg PO DAILY 09/14/24 07/12/25 release Previous Rx's ?Medication ?Instructions ?Recorded carvedilol 3.125 mg tablet 3.125 mg PO BID #180 tabs 04/22/24 valsartan 160 mg tablet 160 mg PO QAM #90 tabs 05/27/24 amlodipine 5 mg tablet 5 mg PO BID #180 tabs 07/22/24 hydrocodone 10 mg-acetaminophen 1 tab PO BID PRN pain 1 month #60 09/14/24 325 mg tablet tabs rosuvastatin 10 mg tablet 10 mg PO DAILY #90 tabs 09/14/24 metformin 500 mg tablet,extended See Rx Instructions .Route 10/14/24 release 24 hr .COMPLEX #180 tabs isosorbide mononitrate 30 mg 30 mg PO DAILY #90 tabs 11/30/24 tablet,extended release 24 hr nitroglycerin 0.4 mg sublingual 0.4 mg sublingual Q5M PRN Chest 11/30/24 tablet (Nitrostat) Pain #20 tabs tamsulosin 0.4 mg capsule 0.4 mg PO BID #180 caps 12/03/24 insulin glargine 100 unit/mL (3 20 unit (0.2 mL) SUBCUT BID #15 mL 02/16/25 mL) subcutaneous pen (Lantus Solostar U-100 Insulin) self caths 14 setswana soft straight #30 ea 02/24/25 clopidogrel 75 mg tablet See Rx Instructions .Route 03/10/25 .COMPLEX #90 tabs blood-glucose sensor (Dexcom G7 #1 ea 05/05/25 Sensor device) blood-glucose,rod hanger,cont #1 ea 05/05/25 (Dexcom G7 Blending Machine Operator) omeprazole 20 mg capsule,delayed See Rx Instructions .Route 06/18/25 release .COMPLEX #90 caps alprazolam 0.5 mg tablet 0.5 mg PO DAILY #30 tabs 06/25/25 albuterol sulfate 90 mcg/actuation 2 puff inhalation Q6H PRN 07/12/25 aerosol inhaler (Ventolin HFA) shortness of breath or wheezing #8.5 grams levofloxacin 500 mg tablet 500 mg PO DAILY #7 tabs 07/12/25 Allergies Allergy/AdvReac Type Severity Reaction Status Date / Time No Known Allergies Allergy Verified 07/12/25 14:25 Review of Systems Const: Denies: fever(s) or chills Card: Reports: chest pain and dyspnea on exertion Resp: Reports: dyspnea GI: Denies: abdominal pain : Denies: dysuria, urinary frequency or urinary urgency Musc: Denies: neck pain or back pain Skin/Breast: Denies: rash PFSH ED PFSH: Medical History PAD (peripheral artery disease) Orthostatic hypotension History of nonmelanoma skin cancer Urinary retention Recurrent UTI BPH loc w urin obs/LUTS Lower urinary tract symptoms (LUTS) Depression Type 2 diabetes mellitus Atherosclerosis of coronary artery of [place] heart EKG revealed a sinus rhythm with some specific T wave changes in the high lateral leads. Voltage criteria for LVH. No significant new changes Arthritis Hyperlipidemia Degenerative arthritis of right knee Coronary artery disease Diabetes Hypertension Cataract Rotator cuff tear arthropathy of both shoulders Carpal tunnel syndrome of right wrist Surgical History H/O heart bypass surgery History of knee replacement History of shoulder surgery History of eye surgery History of neck surgery History of lumbar laminectomy H/O arthroscopy of right knee History of carpal tunnel surgery of left wrist Family History Mother , at age 71 Cancer breast Father , at age 65 Diabetes CAD (coronary artery disease) Denies family history of Clotting disorder Dementia Chronic kidney disease (CKD) Suicide Anesthesia complication Bleeding disorder Lung disease Stroke Social History Smoking and tobacco/nicotine status: never used tobacco/nicotine Alcohol intake: current Alcohol intake frequency: few times a week Marital status: Current occupational status: retired Physical Exam Const: GENERAL APPEARANCE: cooperative ORIENTATION/CONSCIOUSNESS: Yes awake, Yes oriented to person, Yes oriented to place and Yes oriented to time HENMT: COMMON NORMALS: normocephalic, atraumatic and hearing grossly normal bilaterally HEAD & SCALP: normocephalic and atraumatic Resp: COMMON NORMALS: normal respiratory effort, No retractions, No use of accessory muscles and clear to auscultation bilaterally AUSCULTATION: clear to auscultation bilaterally Cardio: COMMON NORMALS: regular rate, regular rhythm and No murmurs present (Cardio) RATE: regular rate RHYTHM: regular rhythm GI: COMMON NORMALS: Soft to palpation and No hepatosplenomegaly present AUSCULTATION: Yes normoactive bowel sounds PALPATION: Yes Soft to palpation, No Tenderness to palpation present (GI), No Guarding due to palpation present (GI) and Yes No hepatosplenomegaly present Extremity: COMMON NORMALS: normal to inspection, capillary refill normal, no clubbing, cyanosis or edema, no calf tenderness and no pedal edema Neuro: SENSORIUM/ORIENTATION: Yes oriented to person, Yes oriented to place and Yes oriented to time Skin: COMMON NORMALS: no rashes or lesions noted GENERAL SKIN EXAM: no rashes or lesions noted Course Vital Signs: Vital signs: Vital Signs Temperature 97.8 F 07/12/25 19:41 Pulse Rate 76 07/13/25 07:55 Respiratory Rate 12 07/13/25 07:55 Blood Pressure 124/77 07/13/25 07:55 Pulse Oximetry 90 07/13/25 07:55 Oxygen Delivery Me thod Nasal Cannula 07/13/25 03:40 Oxygen Flow Rate 2 07/13/25 03:40 MDM - Recheck/Abnormal Lab/Rx Medical Decision Making Medical decision making Social determinants: Good social support from a family lives with his I reviewed the patient's medical record. I reviewed the patient's current home meds. Alternate historians: None Differential diagnosis: Acute coronary syndrome, angina, pneumonia Lab Review: Labs reviewed on the chart shows Anemia which has been an issue in the past however hemoglobin is stable at this time at 11.4. Patient has chronic kidney disease creatinine at 2.1 slight improvement from what he has had in the past. Initial troponin 193 which is above his usual baseline around 130s to 140s. The first troponin was done as an outpatient repeat troponin series done initiated in the emergency room initial was 184 and his subsequent was 187 for a positive delta of +3.2. Imaging:Chest x-ray increased pulmonary vascular markings. More prominent on the right than the left. Assessment of risk Level of risk: High Hospitalization considerations: Admit for escalating angina symptoms Reexamination: Stable no pain at this time. Assessment and plan: Patient has known history of coronary disease having escalating anginal symptoms he is scheduled for angiogram later this week discussed with Dr. Benito his foam rubber fabricator will place patient on admission heparinize. He is not having symptoms at this time so did not start any nitro. Lab Data 07/13/25 03:37 07/13/25 03:37 Radiology Impressions Chest X-Ray 07/12/25 14:06 IMPRESSION: Chest is unchanged compared to the examination of earlier this afternoon. Chronicity of the abnormalities unknown but not present on previous chest x-ray or CT abdomen and pelvis 02/22/2025. Laboratory Results WBC 7.94 10^3/uL (3.29-11.43) 07/12/25 14:56 RBC 4.16 10^6/uL (3.85-5.65) 07/12/25 14:56 Hgb 11.40 g/dL (11.27-16.99) 07/12/25 14:56 Hct 36.4 % (37-53) L 07/12/25 14:56 MCV 87.5 fl (82-101) 07/12/25 14:56 MCH 27.4 pg (27-33) 07/12/25 14:56 MCHC 31.3 g/dL (30-55) 07/12/25 14:56 RDW 15.7 % (12.1-15.1) H 07/12/25 14:56 Plt Count 224 10^3/cmm (157-399) 07/12/25 14:56 MPV 10.7 fL (7.4-10.4) H 07/12/25 14:56 Neut % (Auto) 63.0 % 07/12/25 14:56 Lymph % (Auto) 22.2 % 07/12/25 14:56 Dickson % (Auto) 9.8 % 07/12/25 14:56 Eos % (Auto) 3.9 % 07/12/25 14:56 Baso % (Auto) 0.8 % 07/12/25 14:56 Neut # (Auto) 5.01 10^3/uL (1.8-7.7) 07/12/25 14:56 Lymph # (Auto) 1.8 10^3/uL (0.8-4.8) 07/12/25 14:56 Dickson # (Auto) 0.8 10^3/uL (0.2-0.9) 07/12/25 14:56 Eos # (Auto) 0.3 10^3/uL (0.0-0.8) 07/12/25 14:56 Baso # (Auto) 0.1 10^3/uL (0.0-0.1) 07/12/25 14:56 Nucleated RBC % (auto) 0 % 07/12/25 14:56 Nucleated RBCs # 0.0 /100WBC 07/12/25 14:56 PT 12.60 SECONDS (12.1-14.9) 07/12/25 14:56 INR 0.88 (0.8-1.2) 07/12/25 14:56 Sodium 138 mmol/L (136-145) 07/12/25 14:56 Potassium 4.5 mmol/L (3.5-5.1) 07/12/25 14:56 Chloride 105 mmol/L (98-107) 07/12/25 14:56 Carbon Dioxide 24 mmol/L (22-29) 07/12/25 14:56 Anion Gap 13.5 (5-19) 07/12/25 14:56 BUN 16 mg/dL (8-23) 07/12/25 14:56 Creatinine 2.1 mg/dL (0.7-1.2) H 07/12/25 14:56 GFR Calculation Not Reportable 07/12/25 14:56 Glucose 82 mg/dL (65-115) 07/12/25 14:56 Calculated Osmolality 286 mOsm/kg (285-295) 07/12/25 14:56 Calcium 8.8 mg/dL (8.5-10.5) 07/12/25 14:56 Total Bilirubin 0.4 mg/dL (0.15-1.2) 07/12/25 14:56 AST 17 U/L (0-40) 07/12/25 14:56 ALT 14 U/L (0-41) 07/12/25 14:56 Alkaline Phosphatase 112 U/L (40-130) 07/12/25 14:56 Troponin T Baseline 184 ng/L (0-15) H* 07/12/25 14:56 Total Protein 6.7 g/dL (6.6-8.7) 07/12/25 14:56 Albumin 3.6 g/dL (3.5-5.2) 07/12/25 14:56 Globulin 3.1 g/dL (1.3-4.6) 07/12/25 14:56 Lipase 30 U/L (13-60) 07/12/25 14:56 All radiology interpretation(s) finalized by discharge EKG Data EKG 1: I personally reviewed and interpreted this EKG as follows: Interpretation: EKG 07/12/2025 1421 sinus rhythm rate of 80 LA interval 170 QTc 465 patient has a right bundle branch block no acute changes from previous EKG 02/22/2025. No STEMI at this time. EKG 2: I personally reviewed and interpreted this EKG as follows: Interpretation: EKG 07/12/2025 1602 sinus rhythm right bundle branch block. No acute ST elevation rate of 75 LA interval 166 QTc 472 no significant change from EKG done earlier same day Discharge Plan Discharge Patient Disposition: Admitted As Inpatient Admit Provider: Vladimir Jacobs Clinical Impression: NSTEMI (non-ST elevated myocardial infarction), Atherosclerosis of coronary artery of [place] heart, Type 2 diabetes mellitus, Ischemic cardiomyopathy, Chronic diastolic congestive heart failure, Elevated serum creatinine Condition: Stable Coding Level of Care Code ED [employer] for Olesya Grant
[2025-07-12 15:07] LABS: Hematocrit 36.4 % (37-53); Hemoglobin 11.40 g/dL (11.27-16.99); Mean Corpuscular HGB Conc 31.3 g/dL (30-55); Mean Corpuscular Hemoglobin 27.4 pg (27-33); Mean Corpuscular Volume 87.5 fl (82-101); Nucleated Red Blood Cells % 0 %; Platelet Count 224 10^3/cmm (157-399); Red Blood Count 4.16 10^6/uL (3.85-5.65); White Blood Count 7.94 10^3/uL (3.29-11.43)
[2025-07-12 15:19] LABS: INR 0.88 (0.8-1.2); Prothrombin Time 12.60 SECONDS (12.1-14.9)
[2025-07-12 15:23] LABS: Alanine Aminotransferase 14 U/L (0-41); Albumin Level 3.6 g/dL (3.5-5.2); Alkaline Phosphatase 112 U/L (40-130); Anion Gap 13.5 (5-19); Aspartate Amino Transferase 17 U/L (0-40); Blood Urea Nitrogen 16 mg/dL (8-23); Calcium 8.8 mg/dL (8.5-10.5); Carbon Dioxide 24 mmol/L (22-29); Chloride 105 mmol/L (98-107); Globulin 3.1 g/dL (1.3-4.6); Glucose 82 mg/dL (65-115); Lipase 30 U/L (13-60); Osmolality Calculated 286 mOsm/kg (285-295); Potassium 4.5 mmol/L (3.5-5.1); Sodium 138 mmol/L (136-145); Total Protein 6.7 g/dL (6.6-8.7)
--- NOTE | 2025-07-12 15:24 | USCV_ITS ---
Ruben Price Age: 79 Gender: M : 1945 Exam Date: 07/12/2025 19:58 Ordering Phys: Jacqui Diaz NP Technologist: MADDY [place] [facility] [place]ication: heart failure, shortness of breath, History of HTN, CAD s/p CABG X 2, stents x 2, chronic kidney dz, DM2 BP: 104 / 79 HR: 72 Rhythm: Atrial fibrillation Technical Quality: Adequate MEASUREMENTS (Male / Female) Normal Values 2D ECHO LV Diastolic Diameter PLAX 5.0 cm 4.2 - 5.9 / 3.9 - 5.3 cm IVS Diastolic Thickness 1.5 cm 0.6 - 1.0 / 0.6 - 0.9 cm IVS Systolic Thickness 1.7 cm LVPW Diastolic Thickness 1.3 cm 0.6 - 1.0 / 0.6 - 0.9 cm LVPW Systolic Thickness 2.0 cm LVOT Diameter 2.4 cm LV Ejection Fraction 2D Teich 46.0 % LV Ejection Fraction MOD 4C 56.2 % LV Ejection Fraction MOD 2C 52.9 % LV Ejection Fraction 2C AL 54.3 % LA Diameter 4.6 cm Aorta at Sinotubular Diameter 3.0 cm IVC Diameter 1.9 cm M-MODE LA Ao Ratio MM 1.6 AV Cusp Separation MM 1.9 cm DOPPLER AV Peak Velocity 81.0 cm/s LVOT Peak Velocity 42.0 cm/s AV Area Cont Eq vti 2.1 cm squared AV Area Cont Eq pk 2.3 cm squared MV Peak Velocity 96.0 cm/s MV Area PHT 3.5 cm squared Mitral E to A Ratio 0.0 TV Peak Velocity 324.7 cm/s TR Peak Velocity 355.0 cm/s TR Peak Gradient 50.4 mmHg TV Peak E Velocity 21.0 cm/s PV Peak Velocity 66.0 cm/s FINDINGS Left Ventricle Normal left ventricular cavity size. Normal left ventricular wall thickness. Normal left ventricular systolic function. Left ventricular ejection fraction is estimated at 55 %. Grade III/IV diastolic dysfunction (restrictive filling pattern), severely elevated filling pressures. Right Ventricle Normal right ventricular size. Moderate pulmonary hypertension, RVSP 50 mmHg. Right Atrium Moderately increased right atrial size. Left Atrium Normal left atrial size. IA Septum Normal appearance of the interatrial septum. Mitral Valve Mildly thickened mitral valve. No mitral valve stenosis. Moderate to severe mitral valve regurgitation. Aortic Valve Normal aortic valve structure. No aortic valve stenosis or regurgitation. Tricuspid Valve Thickened tricuspid valve. No tricuspid valve stenosis. Severe tricuspid valve regurgitation. Pulmonic Valve Normal pulmonic valve structure. No pulmonic valve stenosis or regurgitation. Pericardium No pericardial effusion. Aorta Normal diameter of the aortic root and ascending thoracic aorta. IVC Normal IVC diameter. CONCLUSIONS Normal left ventricular cavity size. Normal left ventricular wall thickness. Normal left ventricular systolic function. Left ventricular ejection fraction is estimated at 55 %. Grade III/IV diastolic dysfunction (restrictive filling pattern), severely elevated filling pressures. Moderately increased right atrial size. Mildly thickened mitral valve. No mitral valve stenosis. Moderate to severe mitral valve regurgitation. Thickened tricuspid valve. No tricuspid valve stenosis. Severe tricuspid valve regurgitation. There is no pericardial effusion. Right atrial pressure is around 20 mm of mercury. Pradip Le MD (Electronically Signed) Final Date: 13 July 2025 11:05 S
[2025-07-12 15:31] LABS: Troponin(5th) Baseline 184 ng/L (0-15)
--- NOTE | 2025-07-12 15:34 | PM.HP ---
Providers/Chief Complaint Primary Care Provider: Gavin Garsia MD Chief Complaint: spurling sent, chest tightness History of Present Illness Ruben Price is a 79 year old male hypertension, coronary artery disease status post CABG x 2 and cardiac stent x 2, chronic kidney disease stage IIIb, diabetes mellitus type 2, anxiety who presented to the ER with chest pressure and elevated troponin from his primary care provider's office. Patient states that he has been short of breath for last 2 weeks and has had chest pressure the last 2 days with increasing exertional dyspnea. Patient was scheduled for outpatient angiogram, but given elevated troponin the ER provider contacted skein yard drier who request the patient be placed on a heparin drip and made n.p.o. at midnight for heart catheterization tomorrow morning. Patient continues to endorse shortness of breath, exertional dyspnea and chest pressure. Patient denies current nausea, vomiting, diarrhea, abdominal pain, recent falls or injuries, dark or tarry stools, any type of bleeding, headache, or syncope. Patient is agreeable to admission with cardiac consultation, heart catheterization tomorrow morning, and continued medical management. Had [place] discussion with patient about CODE STATUS, patient request a to allow a natural and does not want any type of resuscitation. Review of Systems General: Reports: 10 or more systems reviewed and unremarkable except in HPI and below Medications/Allergies Home Medications ?Medication ?Instructions ?Recorded ?Confirmed ?Last Taken ?Type carvedilol 3.125 mg tablet 3.125 mg PO BID #180 tabs 04/22/24 07/12/25 02/01/25 20:00 Rx valsartan 160 mg tablet 160 mg PO QAM #90 tabs 05/27/24 07/12/25 07/12/25 08:00 Rx amlodipine 5 mg tablet 5 mg PO BID #180 tabs 07/22/24 07/12/25 07/12/25 08:00 Rx aspirin 81 mg tablet,delayed 81 mg PO DAILY 09/14/24 07/12/25 07/12/25 08:00 History release hydrocodone 10 mg-acetaminophen 1 tab PO BID PRN pain 1 month #60 09/14/24 07/12/25 Unknown Rx 325 mg tablet tabs rosuvastatin 10 mg tablet 10 mg PO DAILY #90 tabs 09/14/24 07/12/25 07/12/25 08:00 Rx metformin 500 mg tablet,extended See Rx Instructions .Route 10/14/24 07/12/25 07/11/25 Rx release 24 hr .COMPLEX #180 tabs isosorbide mononitrate 30 mg 30 mg PO DAILY #90 tabs 11/30/24 07/12/25 07/12/25 08:00 Rx tablet,extended release 24 hr nitroglycerin 0.4 mg sublingual 0.4 mg sublingual Q5M PRN Chest 11/30/24 07/12/25 Unknown Rx tablet (Nitrostat) Pain #20 tabs tamsulosin 0.4 mg capsule 0.4 mg PO BID #180 caps 12/03/24 07/12/25 02/01/25 20:00 Rx insulin glargine 100 unit/mL (3 20 unit (0.2 mL) SUBCUT BID #15 mL 02/16/25 07/12/25 07/12/25 07:00 Rx mL) subcutaneous pen (Lantus Solostar U-100 Insulin) self caths 14 [place] soft straight #30 ea 02/24/25 07/12/25 Unknown Rx clopidogrel 75 mg tablet See Rx Instructions .Route 03/10/25 07/12/25 07/12/25 08:00 Rx .COMPLEX #90 tabs blood-glucose sensor (Dexcom G7 #1 ea 05/05/25 07/12/25 Unknown Rx Sensor device) blood-glucose,child life therapist,cont #1 ea 05/05/25 07/12/25 Unknown Rx (Dexcom G7 Rubber And Plastics Worker) omeprazole 20 mg capsule,delayed See Rx Instructions .Route 06/18/25 07/12/25 07/12/25 08:00 Rx release .COMPLEX #90 caps alprazolam 0.5 mg tablet 0.5 mg PO DAILY #30 tabs 06/25/25 07/12/25 Unknown Rx albuterol sulfate 90 mcg/actuation 2 puff inhalation Q6H PRN 07/12/25 07/12/25 Unknown Rx aerosol inhaler (Ventolin HFA) shortness of breath or wheezing #8.5 grams levofloxacin 500 mg tablet 500 mg PO DAILY #7 tabs 07/12/25 07/12/25 Unknown Rx Allergies Allergy/AdvReac Type Severity Reaction Status Date / Time No Known Allergies Allergy Verified 07/12/25 14:25 PFSH Acute PFSH: Medical History (Updated 07/12/25 @ 16:38 by Jacqui Diaz NP) PAD (peripheral artery disease) Orthostatic hypotension History of nonmelanoma skin cancer Urinary retention Recurrent UTI BPH loc w urin obs/LUTS Lower urinary tract symptoms (LUTS) Depression Type 2 diabetes mellitus Atherosclerosis of coronary artery of [place] heart EKG revealed a sinus rhythm with some specific T wave changes in the high lateral leads. Voltage criteria for LVH. No significant new changes Arthritis Hyperlipidemia Degenerative arthritis of right knee Coronary artery disease Diabetes Hypertension Cataract Rotator cuff tear arthropathy of both shoulders Carpal tunnel syndrome of right wrist Surgical History H/O heart bypass surgery History of knee replacement History of shoulder surgery History of eye surgery History of neck surgery History of lumbar laminectomy H/O arthroscopy of right knee History of carpal tunnel surgery of left wrist Family History Mother , at age 71 Cancer breast Father , at age 65 Diabetes CAD (coronary artery disease) Denies family history of Clotting disorder Dementia Chronic kidney disease (CKD) Suicide Anesthesia complication Bleeding disorder Lung disease Stroke Social History Smoking and tobacco/nicotine status: never used tobacco/nicotine Alcohol intake: current Alcohol intake frequency: few times a week Marital status: Current occupational status: retired Vitals/I&O/Wt Last Vital Signs Temp 98.4 F 07/12/25 14:17 Pulse 76 07/12/25 15:16 BP 118/59 07/12/25 15:16 Pulse Ox 93 07/12/25 15:16 O2 Del Method Nasal Cannula 07/12/25 15:16 O2 Flow Rate 2 07/12/25 15:16 Weight last 48 hrs Weight 87.997 kg Physical Exam Narrative: Pleasant, well-groomed 79-year-old male sitting up in bed with conversational dyspnea, oxygen supplementation via nasal cannula 2 liters per minute. Const: COMMON NORMALS: no acute distress and patient oriented x3 HENMT: COMMON NORMALS: normocephalic, Normal external nose present and moist oral mucous membranes OTHER: Upper dentures in place Eye: COMMON NORMALS: Equal, round and reactive pupils present Neck/C-Spine: COMMON NORMALS: full ROM and no lymphadenopathy Resp: COMMON NORMALS: normal respiratory effort OTHER: Coarse bilaterally to auscultation, diminished at the bases Cardio: COMMON NORMALS: no JVD, regular rate, S1 normal heart sound present and S2 normal heart sound present GI: COMMON NORMALS: Normal to inspection, nondistended, normoactive bowel sounds present Extremity: COMMON NORMALS: normal to inspection, full ROM, no calf tenderness and no pedal edema Neuro: COMMON NORMALS: patient oriented x3, CN's II-XII intact bilaterally and moves all extremities Psych: COMMON NORMALS: mental status grossly normal, cooperative and normal affect Skin: COMMON NORMALS: no rashes or lesions noted and turgor normal Data 07/12/25 14:56 07/12/25 14:56 A&P Assessment and plan 1. NSTEMI (non-ST elevated myocardial infarction): 2. Chest pain: 3. Coronary artery disease: 4. Chronic diastolic congestive heart failure: 5. Type 2 diabetes mellitus: 6. Hypertension: 7. Hyperlipidemia: 8. Depression: 9. CAP (community acquired pneumonia): Plan: NSTEMI Chest Pain - Chest Pressure x 2 days, worsening with exertion - HS troponin 193--<184 - Greatly appreciate cardiology consultation and management with Dr. Le - Placed on heparin gtt - Cardiac monitoring - NPO midnight with planned heart catheterization tomorrow morning Chronic Diastolic Heart Failure CAD Hyperlipidemia - Admitting proBNP 24,260 - Pending lipid panel - Continue cardioprotective medications including carvedilol, valsartan, amlodipine, rosuvastatin, isosorbide, Plavix, aspirin Hypertension - Admitting blood pressure 118/59 - Continue amlodipine, carvedilol, valsartan DM-II - Holding metformin - Pending A1c - Medium dose sliding scale insulin, POC - Resume long-acting insulin after dosing is confirmed Depression/Anxiety - Continue alprazolam and duloxetine Community-acquired pneumonia - CXR: Findings suggesting chronic congestive heart failure. Less likely subacute pneumonitis. Bilateral pleural effusions, ground glass opacities in both lower lung pino. - WBC 7.94 - Elevated CRP - Initiated on IV Rocephin and doxycycline - Pending blood and sputum cultures CKD-IIIB - Admitting creatinine 2.1 - Avoid nephrotoxic agents - Renally dose medications BPH - Continue tamsulosin VTE PPX: Heparin gtt GI PPX: PPI Code Status: Allow Natural PDMP PDMP Reviewed: Last Reviewed 07/12/25 15:43 by Cary Spivey NP Attestations Medical Necessity Statement*: Expect inpatient admission crossing 2 midnights for NSTEMI, community-acquired pneumonia, complex medical management with cardiac consultation and heart catheterization and High Time for a total of 76 minutes, includes reviewing past or interval history, examining/interviewing patient, counseling patient/family/other support, updating patient/family/other support, discussing plan of care with staff, communicating with other healthcare providers, documenting encounter and coordinating care Diagnoses NSTEMI (non-ST elevated myocardial infarction) I21.4 Chest pain R07.9 Coronary artery disease I25.10 Chronic diastolic congestive heart failure I50.32 Heart failure chronicity: chronic Heart failure type: diastolic Type 2 diabetes mellitus E11.9 Hypertension I10 Hyperlipidemia E78.5 Depression F32.A CAP (community acquired pneumonia) J18.9
[2025-07-12] MEDS: heparin drip 25,000 UNIT/500 ML PREMIX 21.12 UNIT IV (15:43)
--- NOTE | 2025-07-12 15:48 | PC.NURSE ---
THIS NURSE VERIFIED AND STARTED HEPARIN DRIP AND IVP.
[2025-07-12] MEDS: heparin 5,000 unit/mL INJ 1 mL IVP (15:59)
--- NOTE | 2025-07-12 16:06 | ECG_ITS ---
Bin1 ATE Test Date: 2025-07-12 Pat Name: Ruben Price Department: Room: 111 Gender: Male Neuro Intensivist Physician: : 1945 Requested By: Kaye Bowman Order Number: [id number] Davey MD: Dick Briggs M.D. Measurements Intervals [place] Rate: 75 P: 42 LA: 166 QRS: -59 QRSD: 136 T: 120 QT: 421 QTc: 472 Interpretive Statements SINUS RHYTHM WITH OCCASIONAL VENTRICULAR PREMATURE COMPLEXES RIGHT BUNDLE BRANCH BLOCK [120+ ms QRS DURATION, UPRIGHT V1, 40+ ms S IN I/aVL/V4/V5/V6] LEFT ANTERIOR FASCICULAR BLOCK [QRS AXIS <= -45, QR IN I, RS IN II] POSSIBLE ANTERIOR MYOCARDIAL INFARCTION , PROBABLY OLD [30 ms Q WAVE IN V3/V4, OR R < 0.2 mV IN V4].MODERATE T-WAVE ABNORMALITY, CONSIDER LATERAL ISCHEMIA [-0.1+ mV T-WAVE IN I/aVL/V5/V6] Compared to ECG 07/12/2025 14:21:37 Ventricular premature complex(es) now present Myocardial infarct finding still present T-wave abnormality still present Possible ischemia still present Electronically Signed On 07-15-2025 18:16:14 [employer]OLF [employer]UB REPAIRER by Dick Briggs M.D. [email or web address]
--- NOTE | 2025-07-12 16:20 | P.CONIM_ITS ---
<Statement entered by Pradip Le MD - 07/12/25 18:55> Patient was evaluated and cared for in conjunction with an advanced practice practitioner. I personally examined the patient and reviewed the chart and all pertinent data including imaging, telemetry, and laboratory results. I discussed the patient in detail with the advanced practice practitioner. Please see their note for complete H&P testing result and agreed upon plan of care for the patient. 79-year-old male past medical history significant for hypertension hyperlipidemia history of CABG diastolic heart failure chronic kidney disease baseline creatinine between 1.7-2.0 for worsening of shortness of breath chest pressure PND orthopnea came to the ER. He was noted to have elevated cardiac markers because of the fact he has chest pressure elevated cardiac marker and not able to breathe patient was admitted. It is the reason we have been asked to assist in his care. GENERAL: Patient is alert, awake and oriented x3. HEART: Regular S1 and S2. No murmur, rub or gallop. LUNGS: Decreased breath sound but mild left-sided crackles CENTRAL NERVOUS SYSTEM: Grossly nonfocal. EXTREMITIES: Lower extremities with out edema bilaterally. Acute on chronic decompensated diastolic heart failure Non-ST elevation VT Acute on chronic kidney disease Possible upper respiratory tract infection Patient appeared to be volume overloaded would therefore recommend IV Lasix 60 mg twice daily goal is 1 to 1.5 L, replenish potassium continue to monitor renal function Continue antibiotics Troponin elevation possible type II due to demand ischemia in lower clearance. Will continue to monitor closely Continue anticoagulation for now Further plan will advise as per progress the patient Providers/Reason For Consult 2 Consulting Physician/Specialty*: Dr. Le Reason for Consult*: Chest pressure, elevated troponin Requesting Physician: Dr. Her Attending Physician: Cary Spivey NP Primary Care Provider: Gavin Garsia MD History of Present Illness History of Present Illness Ruben Price is a 79 year old male history of congestive heart failure, CAD, CABG, CKD, recent stent placement by Dr. Le in February of this year to the [facility], who came into the ER as directed by his primary physician due to chest pressure and elevated troponin. He states a couple months ago he had pneumonia and was treated for this. He states since then he has had a cough and increased shortness of breath for the last couple weeks that has been worse. He states he experiences chest tightness with this but he states it is more of a suffocating feeling like he cannot breathe unlike his previous heart attack symptoms. He is requiring oxygen at this time and he does not have O2 at home. proBNP was 24,260. He denies any chest tightness at this time. Chest x-ray showed reticular interstitial and ground glass lung opacities in both lower lung pino with areas of atelectasis and bilateral pleural effusions. Troponin was elevated at 184?193 awaiting 6-hour Trop. results. EKG did not appear to have any acute changes. Right BBB, old anterior VT, occasional PVC. No ST elevation. Creatinine stable at 2.1. WBC normal. On my exam, patient denies chest pressure. Review of Systems 2 Narrative: Consitutional: denies fever, chills, body aches Card: reports chest pressure on exertion relieved with rest, palpitations, denies, irregular heart rhythm, edema, syncope Resp: Reports shortness of breath on exertion relieved with rest, denies hemoptysis, reports cough GI: denies abdominal pain, denies nausea or vomiting, denies blood in stool Skin: Denies rash, lesions, or wounds, denies changes to skin color Neuro: Denies nubmness in extremities, h/a, s/s of stroke Medications/Allergies Home Medications ?Medication ?Instructions ?Recorded ?Confirmed ?Last Taken ?Type carvedilol 3.125 mg tablet 3.125 mg PO BID #180 tabs 0 04/22/24 07/12/25 02/01/25 20:00 Rx valsartan 160 mg tablet 160 mg PO QAM #90 tabs 05/2707/12/25 02/01/25 08:00 Rx potassium chloride 20 mEq 20 meq PO DAILY #90 tabs 07/12/25 02/01/25 08:00 Rx tablet,extended release furosemide 40 mg tablet (Lasix) 40 mg PO DAILY PRN flu id retention 07/21/24 07/12/25 Unknown History amlodipine 5 mg tablet 5 mg PO BID #180 tabs 07/12/25 02/01/25 08:00 Rx aspirin 81 mg tablet,delayed 81 mg PO DAILY 09/14/24 1 09/12/24 02/01/25 08:00 History release hydrocodone 10 mg-acetaminophen 1 tab PO BID PRN pain 1 month #60 09/14/24 07/12/25 Unknown Rx 325 mg tablet tabs rosuvastatin 10 mg tablet 10 mg PO DAILY #90 tabs 02/07/12/25 02/01/25 08:00 Rx metformin 500 mg tablet,extended See Rx Instructions . Route 10/14/24 07/12/25 02/01/25 08:00 Rx release 24 hr .COMPLEX #180 tabs isosorbide mononitrate 30 mg 30 mg PO DAILY #90 tabs 0 11/30/24 07/12/25 02/01/25 08:00 Rx tablet,extended release 24 hr nitroglycerin 0.4 mg sublingual 0.4 mg sublingual Q5M PRN Chest 11/30/24 07/12/25 Unknown Rx tablet (Nitrostat) Pain #20 tabs tamsulosin 0.4 mg capsule 0.4 mg PO BID #180 caps 0508/2907/12/25 02/01/25 20:00 Rx duloxetine 30 mg capsule,delayed 30 mg PO DAILY #30 ca ps 12/31/24 07/12/25 02/01/25 08:00 Rx release insulin glargine 100 unit/mL (3 20 unit (0.2 mL) SUBCU T BID #15 mL 02/16/25 07/12/25 Unknown Rx mL) subcutaneous pen (Lantus Solostar U-100 Insulin) self caths 14 [place] soft straight #30 ea 02/24/2503/29 Unknown Rx clopidogrel 75 mg tablet See Rx Instructions .Route 0 03/10/25 07/12/25 Unknown Rx .COMPLEX #90 tabs promethazine-DM 6.25 mg-15 mg/5 mL 5 ml PO Q6H PRN cou gh #118 mL 04/14/25 07/12/25 Unknown Rx oral syrup blood-glucose sensor (Dexcom G7 #1 ea 05/05/25 5 Unknown Rx Sensor device) blood-glucose,offensive coordinator,cont #1 ea 05/05/25 07/12/25 Un known Rx (Dexcom G7 Software Engineer Advisor) gabapentin 100 mg capsule 100 mg PO BID #60 caps 05/0507/12/25 Unknown Rx omeprazole 20 mg capsule,delayed See Rx Instructions . Route 06/18/25 07/12/25 Unknown Rx release .COMPLEX #90 caps alprazolam 0.5 mg tablet 0.5 mg PO DAILY #30 tabs 07/12/25 Unknown Rx albuterol sulfate 90 mcg/actuation 2 puff inhalation Q 6H PRN 07/12/25 07/12/25 Unknown Rx aerosol inhaler (Ventolin HFA) shortness of breath or wheezing #8.5 grams levofloxacin 500 mg tablet 500 mg PO DAILY #7 tabs 03/2907/12/25 Unknown Rx Allergies Allergy/AdvReac Type Severity Reaction Status Date / Time No Known Allergies Allergy Verified 07/12/25 14:25 Current Medications Generic Name Dose Route Start Last Admin Trade Name Freq PRN Reason Stop Dose Admin Heparin Sodium/Sodium Chloride 25,000 unit in 500 mls @ 21.119 mls/hr 07/12/25 15:15 07/12/25 15:43 Heparin Drip IV 12 unit/kg/hr CONT KISHA 21.12 mls/hr Protocol Administration 12 UNIT/KG/HR PFSH Acute 2 PFSH: Medical History (Updated 07/12/25 @ 16:38 by Jacqui Diaz NP) PAD (peripheral artery disease) Orthostatic hypotension History of nonmelanoma skin cancer Urinary retention Recurrent UTI BPH loc w urin obs/LUTS Lower urinary tract symptoms (LUTS) Depression Type 2 diabetes mellitus Atherosclerosis of coronary artery of [place] heart EKG revealed a sinus rhythm with some specific T wave changes in the high lateral leads. Voltage criteria for LVH. No significant new changes Arthritis Hyperlipidemia Degenerative arthritis of right knee Coronary artery disease Diabetes Hypertension Cataract Rotator cuff tear arthropathy of both shoulders Carpal tunnel syndrome of right wrist Surgical History H/O heart bypass surgery History of knee replacement History of shoulder surgery History of eye surgery History of neck surgery History of lumbar laminectomy H/O arthroscopy of right knee History of carpal tunnel surgery of left wrist Family History Mother , at age 71 Cancer breast Father , at age 65 Diabetes CAD (coronary artery disease) Denies family history of Clotting disorder Dementia Chronic kidney disease (CKD) Suicide Anesthesia complication Bleeding disorder Lung disease Stroke Social History Smoking and tobacco/nicotine status: never used tobacco/nicotine Alcohol intake: current Alcohol intake frequency: few times a week Marital status: Current occupational status: retired Vitals/I&O/Wt Last Vital Signs Temp 98.4 F 07/12/25 14:17 Pulse 75 07/12/25 16:04 Resp 20 H 07/12/25 16:04 BP 109/66 07/12/25 16:04 Pulse Ox 94 07/12/25 16:04 O2 Del Method Nasal Cannula 07/12/25 16:04 O2 Flow Rate 2 07/12/25 16:04 Weight last 48 hrs Weight 194 lb Physical Exam 2 Narrative: General: No apparent distress, healthy appearing, well nourished Respiratory: Normal respiratory effort, bilateral posterior lower lobes coarse crackles on inspiration, bilateral lower lobes diminised but worse on left anterior lower lobes, no use of accessory muscles Cardio: No JVD, regular rate, regular rhythm, S1 S2 normal, no murmurs, peripheral pulses 2+ radial palpated bilaterally GI: Normal to inspection, slightly distended Extremities: no cyanosis or edema Neuro: Alert and oriented x4 Psych: Affect normal, denies suicidal ideation, mental status grossly normal Skin: No rashes or lesions noted, no wounds Data 07/12/25 14:56 07/12/25 14:56 A&P Assessment and plan 1. Chest pain: Patient appears to be volume overloaded. Could be due to demand ischemia. Initiate lasix 60 mg q12, monitor creatinine. Titrate to patient's response. Strict I&O. will add potassium. Agree with heparin drip. 2. NSTEMI (non-ST elevated myocardial infarction): Heparin dripx48 hours. Patient is chest pressure free at this time. Continue home asas and plavix. 3. Chronic diastolic congestive heart failure: Echo ordered. Start Lasix 60 BID with potassum 4. CKD (chronic kidney disease): Monitor daily through BMP 5. Hypertension: Continue home amlodipine, losartan, coreg 6. Coronary artery disease: Continue aspirin and Plavix as well as statin therapy Plan: At this time, patient has chest pressure on exertion relieved with rest. He states he feels like he can't breath with this. Elevated troponin. May be due to type II VT vs coronary ischemia. Agree with heparin drip. He has elevated probnp, bilateral pleural effusions. The plan is to initiate diuresis with lasix 60 BID and see how patient responds and monitor renal function. Will obtain echo. Further recommendations after. Thank you Dr. Her, for allowing us to care for this very pleasant 79 year old gentleman. PDMP PDMP Reviewed: Not Reviewed Consult Attestations 2 Medical Necessity Statement: Deferred to primary. Coding Level of Care Code Acute Code for [facility]g Fwd Diagnoses Chest pain R07.9 NSTEMI (non-ST elevated myocardial infarction) I21.4 Chronic diastolic congestive heart failure I50.32 Heart failure type: diastolic Heart failure chronicity: chronic CKD (chronic kidney disease) N18.9 Hypertension I10 Coronary artery disease I25.10
[2025-07-12] MEDS: cefTRIAXone 1,000 mg SDV 1000 MG IVP (17:55)
[2025-07-12] MEDS: doxycycline 100 MG in sodium chloride 0.9% (plus) 100 ML IV (17:56)
[2025-07-12] MEDS: FUROsemide 10 mg/mL SDV 10mL 60 MG IVP (17:56)
[2025-07-12] MEDS: pantoprazole 40 mg SDV IVP (17:57)
--- NOTE | 2025-07-12 20:06 | ECG_ITS ---
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 Measurements Intervals [place] Rate: 82 P: 57 NV: 172 QRS: -61 QRSD: 120 T: 98 QT: 400 QTc: 470 Interpretive Statements SINUS RHYTHM WITH OCCASIONAL VENTRICULAR PREMATURE COMPLEXES LEFT AXIS DEVIATION [QRS AXIS < -30] RIGHT BUNDLE BRANCH BLOCK [120+ ms QRS DURATION, UPRIGHT V1, 40+ ms S IN I/aVL/V4/V5/V6] MODERATE T-WAVE ABNORMALITY, CONSIDER LATERAL ISCHEMIA [-0.1+ mV T-WAVE IN I/aVL/V5/V6] Compared to ECG 07/12/2025 16:02:20 Left-axis deviation now present Left anterior fascicular block no longer present Myocardial infarct finding no longer present T-wave abnormality still present Possible ischemia still present Electronically Signed On 07-15-2025 18:15:17 PHYSICIAN'S ASSISTANT by Dick Briggs M.D. [email or web address]
[2025-07-12 21:52] LABS: Troponin 5 6HR Delta 3.3 ng/L (0-12)
[2025-07-12 21:53] LABS: Troponin 5 6HR 187.3 ng/L (0-15)
[2025-07-12 22:03] LABS: Partial Thromboplastin Time 113.1 SECONDS (23.9-36.7)
[2025-07-13] VITALS (12 sets, daily range): BP systolic 109–139; BP diastolic 65–77; PULSE 72–87; RESP 12–24; TEMP 36.6–36.7; O2SAT 87–93; BMI 30.4
[2025-07-13 04:23] LABS: Hematocrit 33.7 % (37-53); Hemoglobin 10.50 g/dL (11.27-16.99); Mean Corpuscular HGB Conc 31.2 g/dL (30-55); Mean Corpuscular Hemoglobin 27.6 pg (27-33); Mean Corpuscular Volume 88.7 fl (82-101); Nucleated Red Blood Cells % 0 %; Platelet Count 195 10^3/cmm (157-399); Red Blood Count 3.80 10^6/uL (3.85-5.65); White Blood Count 8.39 10^3/uL (3.29-11.43)
[2025-07-13 04:51] LABS: Cholesterol 100 mg/dL (0-200); HDL Cholesterol 29 mg/dL (60-100); Triglycerides 137 mg/dL (0-150)
[2025-07-13 04:52] LABS: Alanine Aminotransferase 10 U/L (0-41); Albumin Level 3.2 g/dL (3.5-5.2); Alkaline Phosphatase 97 U/L (40-130); Anion Gap 14.6 (5-19); Aspartate Amino Transferase 16 U/L (0-40); Blood Urea Nitrogen 19 mg/dL (8-23); Calcium 8.4 mg/dL (8.5-10.5); Carbon Dioxide 24 mmol/L (22-29); Chloride 107 mmol/L (98-107); Globulin 2.9 g/dL (1.3-4.6); Glucose 103 mg/dL (65-115); Magnesium 1.6 mg/dL (1.7-2.3); Osmolality Calculated 295 mOsm/kg (285-295); Potassium 4.6 mmol/L (3.5-5.1); Sodium 141 mmol/L (136-145); Thyroid Stimulating Hormone 3.44 uIU/mL (0.27-4.20); Total Protein 6.1 g/dL (6.6-8.7)
[2025-07-13 04:58] LABS: Estmated Average Glucose 111; Hemoglobin A1C 5.5 % (4.0-6.0)
[2025-07-13] MEDS: FUROsemide 10 mg/mL SDV 10mL 60 MG IVP ×2 (05:34→16:38)
[2025-07-13] MEDS: doxycycline 100 MG in sodium chloride 0.9% (plus) 100 ML IV ×2 (05:35→16:34)
--- NOTE | 2025-07-13 06:14 | ECG_ITS ---
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 Measurements Intervals [place] Rate: 78 P: 37 PA: 181 QRS: -61 QRSD: 132 T: 107 QT: 390 QTc: 446 Interpretive Statements SINUS RHYTHM WITH OCCASIONAL VENTRICULAR PREMATURE COMPLEXES INTRAVENTRICULAR CONDUCTION DELAY [130+ ms QRS DURATION] Compared to ECG 07/12/2025 20:56:04 Intraventricular conduction delay now present Left-axis deviation no longer present Right bundle-branch block no longer present T-wave abnormality no longer present Possible ischemia no longer present Electronically Signed On 07-15-2025 18:13:54 DELICATESSEN SLICER by Dick Briggs M.D. [id number]
[2025-07-13 07:21] LABS: Partial Thromboplastin Time 70.0 SECONDS (23.9-36.7)
--- NOTE | 2025-07-13 07:51 | P.PN_ITS ---
Subjective 2 Subjective: Patient is a very pleasant 79-year-old male seen and examined at bedside on hospital rounds today. Patient laying in bed stating that he has no chest pain currently but he did have recurrence of chest pain approximately 4:00 this morning that was sharp and stabbing in quality. Patient states that he did not sleep very well last night at all either. Patient denies new or worsening symptoms currently. Vital signs are stable although patient is on 3 L/min oxygen via nasal cannula to keep oxygen saturation greater than 93%. Vitals/I&O/Wt Last Vital Signs Temp 97.8 F 07/12/25 19:41 Pulse 78 07/13/25 03:40 Resp 18 07/13/25 03:40 BP 109/65 07/13/25 05:35 Pulse Ox 92 07/13/25 03:40 O2 Del Method Nasal Cannula 07/13/25 03:40 O2 Flow Rate 2 07/13/25 03:40 07/12/25 07/13/25 07/13/25 22:59 06:59 14:59 Intake Total 250.304 / 584.063 0915 / 1350.304 Output Total 900 / 900 1500 / 2400 Balance -649.696 / -649.696 -400 / -1049.696 Weight last 48 hrs Weight 87.997 kg Weight 87.997 kg Weight 87.997 kg Physical Exam 2 Narrative: Pleasant, well-groomed 79-year-old male sitting up in bed with conversational dyspnea, oxygen supplementation via nasal cannula 3 liters per minute. Const: COMMON NORMALS: no acute distress and patient oriented x3 HENMT: COMMON NORMALS: normocephalic, Normal external nose present and moist oral mucous membranes HEAD & SCALP: normocephalic NOSE: Normal external nose present OTHER: Upper dentures in place Eye: COMMON NORMALS: Equal, round and reactive pupils present PUPIL: Yes Equal, round and reactive pupils present Neck/C-Spine: COMMON NORMALS: full ROM, no lymphadenopathy and no JVD Resp: COMMON NORMALS: normal respiratory effort OTHER: Coarse bilaterally to auscultation, diminished at the bases Cardio: COMMON NORMALS: no JVD, regular rate, S1 normal heart sound present and S2 normal heart sound present RATE: regular rate HEART SOUNDS: S1 normal heart sound present and S2 normal heart sound present GI: COMMON NORMALS: Normal to inspection, nondistended, normoactive bowel sounds present Extremity: COMMON NORMALS: normal to inspection, full ROM, no calf tenderness and no pedal edema Neuro: COMMON NORMALS: patient oriented x3, CN's II-XII intact bilaterally and moves all extremities Psych: COMMON NORMALS: mental status grossly normal, cooperative and normal affect Skin: COMMON NORMALS: no rashes or lesions noted and turgor normal GENERAL SKIN EXAM: no rashes or lesions noted and turgor normal Data 07/13/25 03:37 07/13/25 03:37 Micro: Microbiology 07/12/25 18:11 Blood Culture - Preliminary Blood SPECIMEN COLLECTED 07/12/25 18:06 Blood Culture - Preliminary Blood SPECIMEN COLLECTED A&P Assessment and plan 1. NSTEMI (non-ST elevated myocardial infarction): 2. Chest pain: 3. Coronary artery disease: 4. Chronic diastolic congestive heart failure: 5. Type 2 diabetes mellitus: 6. Hypertension: 7. Hyperlipidemia: 8. Depression: 9. CAP (community acquired pneumonia): Plan: NSTEMI Chest Pain - Chest Pressure x 2 days, worsening with exertion - HS troponin 193--<184--<187.2--<187.3 - Greatly appreciate cardiology consultation and management with Dr. Le - Placed on heparin gtt - Cardiac monitoring - Heart Cath tomorrow Chronic Diastolic Heart Failure CAD Hyperlipidemia - Admitting proBNP 24,260 - Triglyceride 137, cholesterol 100, LDL 44, HDL 29 - Continue cardioprotective medications including carvedilol, valsartan, amlodipine, rosuvastatin, isosorbide, Plavix, aspirin - Lasix per cardiology with concern for volume overload Hypertension - Admitting blood pressure 118/59 - Continue amlodipine, carvedilol, valsartan DM-II - Holding metformin - A1c 5.5 - Medium dose sliding scale insulin, POC - Resume long-acting insulin after dosing is confirmed Depression/Anxiety - Continue alprazolam and duloxetine Community-acquired pneumonia - CXR: Findings suggesting chronic congestive heart failure. Less likely subacute pneumonitis. Bilateral pleural effusions, ground glass opacities in both lower lung pino. - WBC 7.94 - Elevated CRP - Initiated on IV Rocephin and doxycycline - Pending blood and sputum cultures CKD-IIIB - Creatinine 2.1--<2.5 - Avoid nephrotoxic agents - Renally dose medications BPH - Continue tamsulosin VTE PPX: Heparin gtt GI PPX: PPI Code Status: Allow Natural PDMP PDMP Reviewed: Last Reviewed 07/12/25 15:43 by Cary Spivey MACHINE PRECISION ETCHER Attestations 2 Medical Necessity Statement*: Expect inpatient admission crossing 2 midnights for NSTEMI, community-acquired pneumonia, complex medical management with cardiac consultation and heart catheterization Coding Level of Care Code 91199 Diagnoses NSTEMI (non-ST elevated myocardial infarction) I21.4 Chest pain R07.9 Coronary artery disease I25.10 Chronic diastolic congestive heart failure I50.32 Heart failure chronicity: chronic Heart failure type: diastolic Type 2 diabetes mellitus E11.9 Hypertension I10 Hyperlipidemia E78.5 Depression F32.A CAP (community acquired pneumonia) J18.9
[2025-07-13] MEDS: magnesium sulfate premix 2 GM/50 ML PIGGYBACK IV (08:54)
[2025-07-13] MEDS: ondansetron 2 mg/ML SDV 2 mL 4 MG IVP (09:57)
[2025-07-13] MEDS: FUROsemide 10 mg/mL SDV 4mL 40 MG IVP (09:57)
[2025-07-13] MEDS: pantoprazole 40 mg SDV IVP ×2 (09:57→16:37)
--- NOTE | 2025-07-13 10:55 | PC.CHAP ---
Pastoral Care Encounter/Spiritual Assessment Type of Contact [] Declined puppy trainer visit [] Patient/Family/Request visit [] Outpatient visit [] Follow-up visit [] Physician referral [] Code/Alert [x] Routine visit [] Staff referral [] Actively dying [] Patient sleeping [] Family support [] [] Out of room [] Palliative care [] [] Receiving care in room [] Pre-surgical visit [] Trauma [] Long length of stay [] ICU visit [] Other: Relational/Emotional Strength [x] Patient feels connected with others/family/visitors/staff [] Distress [] Loneliness/isolation [] Abandonment Spirituality of Patient [x] Person of Rossi [] Attends Christian of their [place] [x] Believes in Prayer [] Reads Bible or Pentecostal materials [] There are Spiritual issues to be addressed Bank Messenger Interventions [x] Prayer [x] Active listening [] Non-anxious presence [x] Spiritual/emotional support [] Crisis/trauma care [] Spiritual counseling [] Bereavement support [] Provided bereavement packet [] Provided Bible/devotional materials [] Provided toy/stuffed animal, coloring book to patient or family member [] Provided Communion [] Anointing/[place] [] Salvation [x] Completed spiritual assessment [] Other: Impact on Illness or Injury [] Angry [] Fearful [] Anxious [] Often cries [] Exhaustion [] Unable to work [] Unable to attend druze [] Unable to walk/stand [] Unable to read [] Unable to drive [] Unable to eat/drink [] Unable to sleep [] Unable to be with family [] Patient intubated [] Other: Summary Time spent with patient 5 min
[2025-07-13 12:29] LABS: Partial Thromboplastin Time 64.5 SECONDS (23.9-36.7)
--- NOTE | 2025-07-13 13:58 | P.PN_ITS ---
<Statement entered by Pradip Le MD - 07/13/25 16:25> Patient was evaluated and cared for in conjunction with an advanced practice practitioner. I personally examined the patient and reviewed the chart and all pertinent data including imaging, telemetry, and laboratory results. I discussed the patient in detail with the advanced practice practitioner. Please see their note for complete H&P testing result and agreed upon plan of care for the patient. Subjective 2 Subjective: Patient states he is feeling better this morning and is -904 over 24 hours. Last night in the middle of the night he did experience some chest pain in which he states it was stabbing. Did report orthopnea as well. Patient fluids were stopped and his pain resolved. Creatinine has slightly increased to 2.5. Echo showed normal EF grade 3 out of 4 diastolic dysfunction. Moderate to severe mitral valve regurg. Severe tricuspid valve regurg. Vitals/I&O/Wt Last Vital Signs Temp 97.8 F 07/12/25 19:41 Pulse 74 07/13/25 12:00 Resp 22 H 07/13/25 12:00 BP 124/77 07/13/25 12:00 Pulse Ox 90 07/13/25 12:00 O2 Del Method Nasal Cannula 07/13/25 09:16 O2 Flow Rate 3 07/13/25 09:16 07/12/25 07/13/25 07/13/25 22:59 06:59 14:59 Intake Total 250.304 / 650.345 1349 / 1350.304 510.176 / 510.176 Output Total 900 / 900 1500 / 2400 Balance -649.696 / -649.696 -400 / -1049.696 510.176 / 510.176 Weight last 48 hrs Weight 194 lb Weight 194 lb Weight 194 lb Physical Exam 2 Narrative: General: No apparent distress, healthy appearing, well nourished Respiratory: Normal respiratory effort, bilateral posterior lower lobes coarse crackles on inspiration, bilateral lower lobes diminised but worse on left anterior lower lobes, no use of accessory muscles Cardio: No JVD, regular rate, regular rhythm, S1 S2 normal, no murmurs, peripheral pulses 2+ radial palpated bilaterally GI: Normal to inspection, slightly distended Extremities: no cyanosis or edema Neuro: Alert and oriented x4 Psych: Affect normal, denies suicidal ideation, mental status grossly normal Skin: No rashes or lesions noted, no wounds Data 07/13/25 03:37 07/13/25 03:37 Micro: Microbiology 07/12/25 18:11 Blood Culture - Preliminary Blood SPECIMEN COLLECTED 07/12/25 18:06 Blood Culture - Preliminary Blood SPECIMEN COLLECTED A&P Assessment and plan 1. Chest pain: 2. NSTEMI (non-ST elevated myocardial infarction): 3. Chronic diastolic congestive heart failure: 4. CKD (chronic kidney disease): 5. Hypertension: 6. Coronary artery disease: Plan: At this time, patient appears to be volume overloaded, but improving. Getting lasix 60q 12. Extra 40 mg lasix given this morning. Will evaluate response to this. Will place catheter as patient normally self caths, but he is unable to get the urge to urinate properly and I&O will be managed better with this. Patient agrees. Elevated troponin. May be due to type II [place] vs coronary ischemia. Agree with heparin drip. He has elevated probnp, bilateral pleural effusions. The plan is to continue diuresis with lasix 60 BID and see how patient responds and monitor renal function. Echo showed normal EF with moderate to severe mitral regurgitation, severe tricuspid regurgitation. Will need continued diuresis. Will closely monitor renal function. If patient improves, will continue to treat medically. Will need to reevaluate patient's chest pain after he has been diuresed. PDMP PDMP Reviewed: Not Reviewed Attestations 2 Medical Necessity Statement*: Deferred to primary. Coding Level of Care Code Acute Code for [facility] Diagnoses Chest pain R07.9 NSTEMI (non-ST elevated myocardial infarction) I21.4 Chronic diastolic congestive heart failure I50.32 Heart failure chronicity: chronic Heart failure type: diastolic CKD (chronic kidney disease) N18.9 Hypertension I10 Coronary artery disease I25.10
[2025-07-13] MEDS: heparin drip 25,000 UNIT/500 ML PREMIX 15.84 UNIT IV (16:36)
[2025-07-13] MEDS: cefTRIAXone 1,000 mg SDV 1000 MG IVP (16:37)
[2025-07-13 18:48] LABS: Partial Thromboplastin Time 63.6 SECONDS (23.9-36.7)
[2025-07-14] VITALS (16 sets, daily range): BP systolic 103–115; BP diastolic 55–74; PULSE 72–93; RESP 16–27; TEMP 36.4–36.8; O2SAT 86–93; BMI 32.7
--- NOTE | 2025-07-14 03:10 | PC.NURSE ---
Addendum entered by Angela Nixon RN 07/14/25 03:22: Given orders to leave Heparin gtt on and obtain PTT as soon as patient would allow. Original Note: Patient refused to let lab draw PTT. Educated patient on need for monitoring while on Heparin GTT. He said that he didn't want to be bothered like he was the night before, that we were in his room too often and he could not get any sleep as a result. Heaprin GTT turned off. Contacted Dr. Beltran to let him know of patients refusal.
[2025-07-14] MEDS: FUROsemide 10 mg/mL SDV 10mL 60 MG IVP ×2 (04:48→15:59)
[2025-07-14] MEDS: doxycycline 100 MG in sodium chloride 0.9% (plus) 100 ML IV ×2 (04:48→18:18)
--- NOTE | 2025-07-14 07:24 | P.PN_ITS ---
Subjective 2 Subjective: Patient is a very pleasant 79-year-old male seen and examined at bedside on hospital rounds this morning. Patient sitting up in bed eating breakfast stating that his shortness of breath is almost completely resolved, he is currently still requiring 2 L of oxygen by nasal cannula to keep oxygen saturation greater than 92%. While speaking with the patient watched his oxygen dropped to 89% while on oxygen supplementation. Spoke with patient, we will order O2 walk test this morning to qualify him for home oxygen if needed. Patient denies new or worsening symptoms. In review of labs hemoglobin stable 10.10, pending chemistry. Patient is diuresing well, greatly appreciate cardiology consultation and management Dr. Le, we will await further recommendations. Will continue current interventions inpatient. Vitals/I&O/Wt Last Vital Signs Temp 97.8 F 07/13/25 19:37 Pulse 83 07/13/25 20:37 Resp 18 07/13/25 20:37 BP 113/74 07/14/25 04:49 Pulse Ox 92 07/13/25 20:37 O2 Del Method Nasal Cannula 07/13/25 20:37 O2 Flow Rate 3 07/13/25 20:37 07/13/25 07/14/25 07/14/25 22:59 06:59 14:59 Intake Total 161.248 / 1031.424 267.112 / 1298.536 Output Total 575 / 1250 375 / 1625 Balance -413.752 / -218.576 -107.888 / -326.464 Weight last 48 hrs Weight 94.8 kg Weight 87.997 kg Weight 87.997 kg Weight 87.997 kg Physical Exam 2 Narrative: Pleasant, well-groomed 79-year-old male sitting up in bed in no apparent distress, oxygen supplementation via nasal cannula 2 liters per minute. Const: COMMON NORMALS: no acute distress and patient oriented x3 HENMT: COMMON NORMALS: normocephalic, Normal external nose present and moist oral mucous membranes HEAD & SCALP: normocephalic NOSE: Normal external nose present OTHER: Upper dentures in place Eye: COMMON NORMALS: Equal, round and reactive pupils present PUPIL: Yes Equal, round and reactive pupils present Neck/C-Spine: COMMON NORMALS: full ROM, no lymphadenopathy and no JVD Resp: COMMON NORMALS: normal respiratory effort OTHER: Coarse bilaterally to auscultation, diminished at the bases Cardio: COMMON NORMALS: no JVD, regular rate, S1 normal heart sound present and S2 normal heart sound present RATE: regular rate HEART SOUNDS: S1 normal heart sound present and S2 normal heart sound present GI: COMMON NORMALS: Normal to inspection, nondistended, normoactive bowel sounds present Extremity: COMMON NORMALS: normal to inspection, full ROM, no calf tenderness and no pedal edema Neuro: COMMON NORMALS: patient oriented x3, CN's II-XII intact bilaterally and moves all extremities Psych: COMMON NORMALS: mental status grossly normal, cooperative and normal affect Skin: COMMON NORMALS: no rashes or lesions noted and turgor normal GENERAL SKIN EXAM: no rashes or lesions noted and turgor normal Urinary Catheter Management: Pat: Cath Placed During This Visit: yes Reason for Continuing Indwelling Catheter: Accurate Measurement of Urinary Output in Critically Ill Patients Urinary Catheter Date of Insertion: 07/13/25 Urinary Catheter Time of Insertion: 12:15 Data 07/14/25 09:43 07/13/25 03:37 Micro: Microbiology 07/12/25 18:11 Blood Culture - Preliminary Blood NEGATIVE TO DATE 07/12/25 18:06 Blood Culture - Preliminary Blood NEGATIVE TO DATE A&P Assessment and plan 1. NSTEMI (non-ST elevated myocardial infarction): 2. Chest pain: 3. Coronary artery disease: 4. Chronic diastolic congestive heart failure: 5. Type 2 diabetes mellitus: 6. Hypertension: 7. Hyperlipidemia: 8. Depression: 9. CAP (community acquired pneumonia): Plan: Type II NJ due to demand Chest Pain, resolved - Chest Pressure has resolved with duresing - HS troponin 193--<184--<187.2--<187.3 - Greatly appreciate cardiology consultation and management with Dr. Le - Cardiac monitoring - Continue diuresing Chronic Diastolic Heart Failure CAD Hyperlipidemia - Admitting proBNP 24,260 - Triglyceride 137, cholesterol 100, LDL 44, HDL 29 - Continue cardioprotective medications including carvedilol, valsartan, amlodipine, rosuvastatin, isosorbide, Plavix, aspirin - Lasix per cardiology with concern for volume overload, continues Hypertension - Admitting blood pressure 118/59, now 103/63 - Continue amlodipine, carvedilol, valsartan DM-II - Holding metformin - A1c 5.5 - Medium dose sliding scale insulin, POC - Resume long-acting insulin after dosing is confirmed Depression/Anxiety - Continue alprazolam and duloxetine Community-acquired pneumonia - CXR: Findings suggesting chronic congestive heart failure. Less likely subacute pneumonitis. Bilateral pleural effusions, ground glass opacities in both lower lung pino. - WBC 7.94 - Elevated CRP - Initiated on IV Rocephin and doxycycline - Blood cultures x 2 no growth to date. CKD-IIIB - Creatinine 2.1--<2.5--<pending - Avoid nephrotoxic agents - Renally dose medications BPH Urinary retention - Continue tamsulosin - Pat in place VTE PPX: Heparin gtt GI PPX: PPI Code Status: Allow Natural PDMP PDMP Reviewed: Last Reviewed 07/12/25 15:43 by Cary Spivey, [employer]ARD STOCKER Attestations 2 Medical Necessity Statement*: Expect inpatient admission crossing 2 midnights for Type II NJ, CHF with volume overload, community-acquired pneumonia, complex medical management with cardiac consultation and heart catheterization Coding Level of Care Code 14167 Diagnoses NSTEMI (non-ST elevated myocardial infarction) I21.4 Chest pain R07.9 Coronary artery disease I25.10 Chronic diastolic congestive heart failure I50.32 Heart failure chronicity: chronic Heart failure type: diastolic Type 2 diabetes mellitus E11.9 Hypertension I10 Hyperlipidemia E78.5 Depression F32.A CAP (community acquired pneumonia) J18.9
--- NOTE | 2025-07-14 08:22 | PC.NURSE ---
per Dr Le, stop the heparin drip. Heparin drip stopped.
[2025-07-14 10:17] LABS: Hematocrit 32.9 % (37-53); Hemoglobin 10.10 g/dL (11.27-16.99); Mean Corpuscular HGB Conc 30.7 g/dL (30-55); Mean Corpuscular Hemoglobin 27.2 pg (27-33); Mean Corpuscular Volume 88.4 fl (82-101); Nucleated Red Blood Cells % 0 %; Platelet Count 210 10^3/cmm (157-399); Red Blood Count 3.72 10^6/uL (3.85-5.65); White Blood Count 8.16 10^3/uL (3.29-11.43)
[2025-07-14 10:44] LABS: Alanine Aminotransferase 11 U/L (0-41); Albumin Level 3.5 g/dL (3.5-5.2); Alkaline Phosphatase 99 U/L (40-130); Anion Gap 15.4 (5-19); Aspartate Amino Transferase 16 U/L (0-40); Blood Urea Nitrogen 26 mg/dL (8-23); Calcium 8.6 mg/dL (8.5-10.5); Carbon Dioxide 24 mmol/L (22-29); Chloride 103 mmol/L (98-107); Globulin 3.0 g/dL (1.3-4.6); Glucose 195 mg/dL (65-115); Magnesium 2.0 mg/dL (1.7-2.3); Osmolality Calculated 294 mOsm/kg (285-295); Potassium 5.4 mmol/L (3.5-5.1); Sodium 137 mmol/L (136-145); Total Protein 6.5 g/dL (6.6-8.7)
--- NOTE | 2025-07-14 12:32 | P.PN_ITS ---
<Statement entered by Pradip Le MD - 07/14/25 18:15> Patient was evaluated and cared for in conjunction with an advanced practice practitioner. I personally examined the patient and reviewed the chart and all pertinent data including imaging, telemetry, and laboratory results. I discussed the patient in detail with the advanced practice practitioner. Please see their note for complete H&P testing result and agreed upon plan of care for the patient. Subjective 2 Subjective: Patient doing better this morning. Denies any chest pain. States shortness of breath is improved.-711 over 24 hours. Creatinine is slightly increased to 3.1, still has crackles. Did home O2 eval and qualified for O2. Vitals/I&O/Wt Last Vital Signs Temp 97.6 F 07/14/25 08:00 Pulse 93 07/14/25 08:00 Resp 20 H 07/14/25 08:00 BP 103/63 07/14/25 08:00 Pulse Ox 88 L 07/14/25 09:29 O2 Del Method Nasal Cannula 07/14/25 07:40 O2 Flow Rate 4 07/14/25 09:29 07/13/25 07/14/25 07/14/25 22:59 06:59 14:59 Intake Total 161.248 / 1031.424 267.112 / 1298.536 559.464 / 559.464 Output Total 575 / 1250 375 / 1625 375 / 375 Balance -413.752 / -218.576 -107.888 / -326.464 184.464 / 184.464 Weight last 48 hrs Weight 208 lb 15.971 oz Weight 194 lb Weight 194 lb Weight 194 lb Physical Exam 2 Narrative: General: No apparent distress, healthy appearing, well nourished Respiratory: Normal respiratory effort, bilateral posterior lower lobes coarse crackles on inspiration, bilateral lower lobes diminised but worse on left anterior lower lobes, no use of accessory muscles Cardio: No JVD, regular rate, regular rhythm, S1 S2 normal, no murmurs, peripheral pulses 2+ radial palpated bilaterally GI: Normal to inspection, slightly distended Extremities: no cyanosis or edema Neuro: Alert and oriented x4 Psych: Affect normal, denies suicidal ideation, mental status grossly normal Skin: No rashes or lesions noted, no wounds Urinary Catheter Management: Pat: Cath Placed During This Visit: yes Reason for Continuing Indwelling Catheter: Accurate Measurement of Urinary Output in Critically Ill Patients Urinary Catheter Date of Insertion: 07/13/25 Urinary Catheter Time of Insertion: 12:15 Data 07/14/25 09:43 07/14/25 09:43 Micro: Microbiology 07/12/25 18:11 Blood Culture - Preliminary Blood NEGATIVE TO DATE 07/12/25 18:06 Blood Culture - Preliminary Blood NEGATIVE TO DATE A&P Assessment and plan 1. Chest pain: 2. NSTEMI (non-ST elevated myocardial infarction): 3. Chronic diastolic congestive heart failure: 4. CKD (chronic kidney disease): 5. Hypertension: 6. Coronary artery disease: Plan: Patient has improved. Patient is -711 over 24 hours. Goal is -1500 to - 2000. Creatinine is at baseline. Will continue Lasix 60 every 12. Will add metolazone 2.5 mgx1 dose and see how patient responds. Did discuss fluid restriction with patient 1.5 L. States he has been drinking at least 2L daily. Close I&O as well as monitoring renal function. Patient to walk today and see how he does. Reevaluate tomorrow. PDMP PDMP Reviewed: Not Reviewed Attestations 2 Medical Necessity Statement*: Defer to primary. Coding Level of Care Code Acute Code for [facility] Diagnoses Chest pain R07.9 NSTEMI (non-ST elevated myocardial infarction) I21.4 Chronic diastolic congestive heart failure I50.32 Heart failure chronicity: chronic Heart failure type: diastolic CKD (chronic kidney disease) N18.9 Hypertension I10 Coronary artery disease I25.10
[2025-07-14] MEDS: pantoprazole 40 mg SDV IVP (16:00)
--- NOTE | 2025-07-14 17:49 | PC.NURSE ---
patient has asked for his xanax three times so that he can keep it at his bedside and take when he wants to. He states he has a problem with the night nurses giving it to him. Nurse told patient the medicine has been given at the appropriate time each night and that the nurse could not given it to him any sooner than 1999.
[2025-07-14] MEDS: cefTRIAXone 1,000 mg SDV 1000 MG IVP (18:18)
[2025-07-15] VITALS (10 sets, daily range): BP systolic 100–128; BP diastolic 55–72; PULSE 70–85; RESP 17–27; TEMP 36.6–36.8; O2SAT 90–94
[2025-07-15] MEDS: FUROsemide 10 mg/mL SDV 10mL 60 MG IVP (05:07)
[2025-07-15] MEDS: doxycycline 100 MG in sodium chloride 0.9% (plus) 100 ML IV (05:08)
--- NOTE | 2025-07-15 07:11 | XR_ITS ---
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 Moderate tortuosity and ectasia of the ascending and descending thoracic aorta. Cardiomegaly. Compared to the examination of 07/12/2025 bilateral pleural effusions appear reduced. There is better aeration of the lungs bilaterally. Minimal residual and patchy groundglass opacities in the lower lung pino. No new findings XR/XR chest 1V portable [id number] IMPRESSION: Improving abnormal chest.
[2025-07-15 10:42] LABS: Hematocrit 34.3 % (37-53); Hemoglobin 10.50 g/dL (11.27-16.99); Mean Corpuscular HGB Conc 30.6 g/dL (30-55); Mean Corpuscular Hemoglobin 27.3 pg (27-33); Mean Corpuscular Volume 89.3 fl (82-101); Nucleated Red Blood Cells % 0 %; Platelet Count 205 10^3/cmm (157-399); Red Blood Count 3.84 10^6/uL (3.85-5.65); White Blood Count 7.88 10^3/uL (3.29-11.43)
[2025-07-15 11:04] LABS: Alanine Aminotransferase 12 U/L (0-41); Albumin Level 3.5 g/dL (3.5-5.2); Alkaline Phosphatase 103 U/L (40-130); Anion Gap 17.1 (5-19); Aspartate Amino Transferase 20 U/L (0-40); Blood Urea Nitrogen 31 mg/dL (8-23); Calcium 8.8 mg/dL (8.5-10.5); Carbon Dioxide 24 mmol/L (22-29); Chloride 101 mmol/L (98-107); Globulin 3.3 g/dL (1.3-4.6); Glucose 131 mg/dL (65-115); Magnesium 2.1 mg/dL (1.7-2.3); Osmolality Calculated 292 mOsm/kg (285-295); Potassium 5.1 mmol/L (3.5-5.1); Sodium 137 mmol/L (136-145); Total Protein 6.8 g/dL (6.6-8.7)
--- NOTE | 2025-07-15 13:48 | PC.NURSE ---
verified with professor of architecture Per cardiology team, pt is getting a CT scan? Pt is asked and he has been informed. Pt's oxygen device and nebulizer machine has been delivered by HOME around 9 AM.
--- NOTE | 2025-07-15 14:14 | CTR_ITS ---
PROCEDURE INFORMATION: Exam: CT Chest Without Contrast; Diagnostic Exam date and time: 07/15/2025 2:37 PM Age: 79 years old Clinical indication: Pain; Other: R/O pulmonary mass/groundglass opacities; Prior surgery; Surgery date: 6+ months; Surgery type: Open heart TECHNIQUE: Imaging protocol: Diagnostic computed tomography of the chest without contrast. Radiation optimization: All CT scans at this facility use at least one of these dose optimization techniques: automated exposure control; mA and/or kV adjustment per patient size (includes targeted exams where dose is matched to clinical indication); or iterative reconstruction. COMPARISON: CR XR chest 1V portable [id number] 07/15/2025 8:22 AM RADIATION DOSE METRICS: Total DLP (mGy-cm): 649.97 FINDINGS: Lungs: Dependent atelectasis. Superimposed airspace disease dependent bilateral lower lobe is also possible. Pleural spaces: Large right pleural effusion, moderate left pleural effusion. These are both dependently layering. Heart: Heart size upper limits of normal. Coronary arteries: There are severe coronary artery calcifications. Lymph nodes: Calcified lymph nodes of the chest suggest previous granulomatous disease. Vasculature: Moderate atherosclerotic disease is evident. No dilatation of the thoracic aorta. Adrenal glands: Indeterminate right adrenal nodule measures proximally 1.5 cm, this is approximately 17 Hounsfield units. An adenomas possible, however nonemergent adrenal protocol MR could better evaluate Kidneys: 1.8 cm possible hyperdense cyst partially visualized right kidney, this is incompletely imaged and evaluated. This could also be better assessed with the above mentioned MRI. Bones/joints: Severe degenerative changes of the [id number]-left shoulders. Partial visualization of spinal fusion hardware in the superior [id number] Changes of sternotomy are noted. Soft tissues: Unremarkable. CT/CT chest wo con [id number] IMPRESSION: 1. Dependent atelectasis. Superimposed airspace disease dependent bilateral lower lobe is also possible. 2. Large right pleural effusion, moderate left pleural effusion. These are both dependently layering. 3. Indeterminate right adrenal nodule, possible right renal hyperdense cyst. Nonemergent MRI could better evaluate. COMMENTS: 1. Consistent with the [employer]'s Incidental Findings Committee white paper (J Am Jennifer Radiol 2017): For any incidental adrenal lesion greater than or equal to 1 cm but less than or equal to 4 cm classified in this report as benign, likely benign, or containing fat (including classification as an adenoma or myelolipoma), no follow-up imaging is recommended per consensus recommendations based on imaging criteria. Further lab evaluation could be pursued if warranted based on clinical findings. 2. Consistent with the [employer]'s Incidental Findings Committee white paper (J Am Jennifer Radiol 2018): Any incidental renal lesion less than 1 cm or classified as too small to characterize, or any incidental cystic renal lesion characterized as simple-appearing, is likely benign. No follow-up imaging is recommended for these lesions per consensus recommendations based on imaging criteria.
--- NOTE | 2025-07-15 14:44 | P.PN_ITS ---
<Statement entered by Pradip Le MD - 07/16/25 15:54> Patient was evaluated and cared for in conjunction with an advanced practice practitioner. I personally examined the patient and reviewed the chart and all pertinent data including imaging, telemetry, and laboratory results. I discussed the patient in detail with the advanced practice practitioner. Please see their note for complete H&P testing result and agreed upon plan of care for the patient. Patient continues to have shortness of breath CT scan was performed today showing large right and small to moderate left-sided pleural effusion GENERAL: Patient is alert, awake and oriented x3. HEART: Regular S1 and S2. No murmur, rub or gallop. LUNGS: Left-sided lower crackles, dull right mid to lower lung sounds CENTRAL NERVOUS SYSTEM: Grossly nonfocal. EXTREMITIES: Lower extremities with out edema bilaterally. Assessment and plan Congestive heart failure acute on chronic diastolic type Large pleural effusion Acute on chronic kidney injury Type II non-STEMI Plan pleurocentesis tomorrow N.p.o. overnight Switch to Bumex 1 mg once a day Continue to monitor renal function Continue rest of medication Subjective 2 Subjective: Patient symptoms have improved but he still not quite back to baseline. He is requiring oxygen whereas before he did not have this. He states he still gets pretty short of breath on exertion. Overall lungs sound clear but does have some residual left lower posterior lobe crackles. X-ray done today shows improvement in the effusions as well as patchy ground glass opacities in the lower lung pino. Labs are stable. He is starting to diurese well -1310 over 24 hours. Vitals/I&O/Wt Last Vital Signs Temp 98.3 F 07/15/25 11:04 Pulse 83 07/15/25 11:04 Resp 17 07/15/25 11:04 BP 118/65 07/15/25 11:04 Pulse Ox 91 07/15/25 11:04 O2 Del Method Nasal Cannula 07/15/25 11:04 O2 Flow Rate 3 07/15/25 07:57 07/14/25 07/15/25 07/15/25 22:59 06:59 14:59 Intake Total 100 / 659.464 360 / 1019.464 120 / 120 Output Total 875 / 1450 400 / 1850 700 / 700 Balance -775 / -790.536 -40 / -830.536 -580 / -580 Weight last 48 hrs Weight 207 lb 3.752 oz Weight 208 lb 15.971 oz Physical Exam 2 Narrative: General: No apparent distress, healthy appearing, well nourished Respiratory: Normal respiratory effort, bilateral posterior lower lobes coarse crackles on inspiration, bilateral lower lobes diminised but worse on left anterior posterior lobes, no use of accessory muscles Cardio: No JVD, regular rate, regular rhythm, S1 S2 normal, no murmurs, peripheral pulses 2+ radial palpated bilaterally GI: Normal to inspection, slightly distended Extremities: no cyanosis or edema Neuro: Alert and oriented x4 Psych: Affect normal, denies suicidal ideation, mental status grossly normal Skin: No rashes or lesions noted, no wounds Urinary Catheter Management: Pat: Cath Placed During This Visit: yes Reason for Continuing Indwelling Catheter: Acute Urinary Retention or Obstruction Urinary Catheter Date of Insertion: 07/13/25 Urinary Catheter Time of Insertion: 12:15 Data 07/15/25 10:14 07/15/25 10:14 A&P Assessment and plan 1. Chest pain: 2. NSTEMI (non-ST elevated myocardial infarction): 3. Chronic diastolic congestive heart failure: 4. CKD (chronic kidney disease): 5. Hypertension: 6. Coronary artery disease: Plan: Patient still does not seem at baseline. He has diuresed well. -1310 over 24 hours. X-ray improved. Given groundglass opacities may have underlying lung disease. In order to rule out lung mass, interstitial lung disease,will get CT chest w/o contrast to avoid further renal damage. Further recommendations after this. Patient may need to be referred to cyber systems operations specialist depending on what this shows. PDMP PDMP Reviewed: Not Reviewed Attestations 2 Medical Necessity Statement*: Deferred to primary care. Coding Level of Care Code Acute Code for [facility] Diagnoses Chest pain R07.9 NSTEMI (non-ST elevated myocardial infarction) I21.4 Chronic diastolic congestive heart failure I50.32 Heart failure chronicity: chronic Heart failure type: diastolic CKD (chronic kidney disease) N18.9 Hypertension I10 Coronary artery disease I25.10
--- NOTE | 2025-07-15 15:40 | PC.NURSE ---
informed pt that coater operator insulation board TELEMARKETING REPRESENTATIVE called us and let us know that they will be here to talk to him after clinic hours. Pt and at bedside verbalizes understanding.
--- NOTE | 2025-07-15 16:00 | P.PN_ITS ---
Subjective 2 Subjective: Patient is a very pleasant 79-year-old male seen and examined at bedside on hospital rounds today. Patient up in bed stating that he really wants to go home that he does not have any shortness of breath. Patient continues to require oxygen supplementation 3 to 4 L/min by nasal cannula. Spoke with cardiology team and they requested patient have CT lungs prior to discharge. Patient is diuresed well however continues to need supplemental oxygen where he did not need this previously. Patient denies new or worsening symptoms. Cardiology requested CT, this was completed showing bilateral pleural effusion. Patient is currently on Plavix, this will need to be held for thoracentesis. Patient's vital signs are stable, repeat labs hemoglobin 10.50, creatinine 3.5 elevated most likely secondary to diuresis. Vitals/I&O/Wt Last Vital Signs Temp 98.3 F 07/15/25 11:04 Pulse 75 07/15/25 15:17 Resp 18 07/15/25 15:17 BP 121/64 07/15/25 15:17 Pulse Ox 92 07/15/25 15:17 O2 Del Method Room Air 07/15/25 15:17 O2 Flow Rate 3 07/15/25 14:00 07/15/25 07/15/25 07/15/25 06:59 14:59 22:59 Intake Total 360 / 1019.464 120 / 120 Output Total 400 / 1850 700 / 700 Balance -40 / -830.536 -580 / -580 Weight last 48 hrs Weight 94 kg Weight 94.8 kg Physical Exam 2 Narrative: Pleasant, well-groomed 79-year-old male sitting up in bed in no apparent distress, oxygen supplementation via nasal cannula 3 liters per minute. Const: COMMON NORMALS: no acute distress and patient oriented x3 HENMT: COMMON NORMALS: normocephalic, Normal external nose present and moist oral mucous membranes HEAD & SCALP: normocephalic NOSE: Normal external nose present OTHER: Upper dentures in place Eye: COMMON NORMALS: Equal, round and reactive pupils present PUPIL: Yes Equal, round and reactive pupils present Neck/C-Spine: COMMON NORMALS: full ROM, no lymphadenopathy and no JVD Resp: COMMON NORMALS: normal respiratory effort OTHER: Clear bilaterally to auscultation, diminished at the bases Cardio: COMMON NORMALS: no JVD, regular rate, S1 normal heart sound present and S2 normal heart sound present RATE: regular rate HEART SOUNDS: S1 normal heart sound present and S2 normal heart sound present GI: COMMON NORMALS: Normal to inspection, nondistended, normoactive bowel sounds present Extremity: COMMON NORMALS: normal to inspection, full ROM, no calf tenderness and no pedal edema Neuro: COMMON NORMALS: patient oriented x3, CN's II-XII intact bilaterally and moves all extremities Psych: COMMON NORMALS: mental status grossly normal, cooperative and normal affect Skin: COMMON NORMALS: no rashes or lesions noted and turgor normal GENERAL SKIN EXAM: no rashes or lesions noted and turgor normal Urinary Catheter Management: Pat: Cath Placed During This Visit: yes Reason for Continuing Indwelling Catheter: Acute Urinary Retention or Obstruction Urinary Catheter Date of Insertion: 07/13/25 Urinary Catheter Time of Insertion: 12:15 Data 07/15/25 10:14 07/15/25 10:14 A&P Assessment and plan 1. NSTEMI (non-ST elevated myocardial infarction): 2. Chest pain: 3. Coronary artery disease: 4. Chronic diastolic congestive heart failure: 5. Type 2 diabetes mellitus: 6. Hypertension: 7. Hyperlipidemia: 8. Depression: 9. CAP (community acquired pneumonia): Plan: Type II [place] due to demand Chest Pain, resolved - Chest Pressure has resolved with duresing - HS troponin 193--<184--<187.2--<187.3 - Greatly appreciate cardiology consultation and management with Dr. Le - Cardiac monitoring - Continue diuresing Chronic Diastolic Heart Failure CAD Hyperlipidemia - Admitting proBNP 24,260 - Triglyceride 137, cholesterol 100, LDL 44, HDL 29 - Continue cardioprotective medications including carvedilol, valsartan, amlodipine, rosuvastatin, isosorbide, Plavix, aspirin - Lasix per cardiology with concern for volume overload, continues TRISTA Pleural Effusion - CT Chest: Dependent atelectasis, superimposed airspace disease dependent bilateral lower lobe. Large right pleural effusion, moderate left pleural effusion. - Continue to diurese - Supportive care with supplemental oxygen - Holding Plavix - Pending IR consultation, may have to be completed outpatient Right adrenal nodule - This is an incidental finding on CT chest, recommended nonemergent MRI to better evaluate - Discussed with patient, outpatient follow-up Hypertension - Admitting blood pressure 118/59, now 103/63 - Continue amlodipine, carvedilol, valsartan DM-II - Holding metformin - A1c 5.5 - Medium dose sliding scale insulin, POC - Resume long-acting insulin after dosing is confirmed Depression/Anxiety - Continue alprazolam and duloxetine Community-acquired pneumonia - CXR: Findings suggesting chronic congestive heart failure. Less likely subacute pneumonitis. Bilateral pleural effusions, ground glass opacities in both lower lung pino. - WBC 7.94 - Elevated CRP - Initiated on IV Rocephin and doxycycline - Blood cultures x 2 no growth to date. CKD-IIIB - Creatinine 2.1--<2.5--<3.1--<3.5 - Avoid nephrotoxic agents - Renally dose medications BPH Urinary retention - Continue tamsulosin - Pat in place VTE PPX: Heparin gtt GI PPX: PPI Code Status: Allow Natural PDMP PDMP Reviewed: Last Reviewed 07/12/25 15:43 by Cary Spivey, TOWER CRANE OPERATOR Attestations 2 Medical Necessity Statement*: Expect inpatient admission crossing 2 midnights for Type II [place], CHF with volume overload, community-acquired pneumonia, complex medical management with cardiac consultation and heart catheterization and High Time for a total of 55 minutes, includes reviewing past or interval history, examining/interviewing patient, placing orders, counseling patient/family/other support, updating patient/family/other support, discussing plan of care with staff, communicating with other healthcare providers, documenting encounter and coordinating care Diagnoses NSTEMI (non-ST elevated myocardial infarction) I21.4 Chest pain R07.9 Coronary artery disease I25.10 Chronic diastolic congestive heart failure I50.32 Heart failure chronicity: chronic Heart failure type: diastolic Type 2 diabetes mellitus E11.9 Hypertension I10 Hyperlipidemia E78.5 Depression F32.A CAP (community acquired pneumonia) J18.9
[2025-07-15] MEDS: pantoprazole 40 mg SDV IVP (19:05)
[2025-07-16] VITALS (8 sets, daily range): BP systolic 100–123; BP diastolic 54–84; PULSE 69–87; RESP 17–24; TEMP 36.5–36.9; O2SAT 91–97
--- NOTE | 2025-07-16 07:20 | P.DS_ITS ---
Discharge Providers Date of Admission: 07/12/25 15:48 Date of Discharge: July 15, 2025 Attending Provider at Admission: Vladimir Jacobs MD Attending Provider at Discharge: Cary Spivey NP Primary Care Provider: Gavin Garsia MD Diagnoses at Discharge Discharge Diagnosis 1. Chest pain: 2. NSTEMI (non-ST elevated myocardial infarction): 3. Chronic diastolic congestive heart failure: 4. CKD (chronic kidney disease): 5. Essential hypertension: 6. Coronary artery disease: Reason for Visit Reason for Visit: spurling sent, chest tightness Brief History: Admission: Ruben Price is a 79 year old male hypertension, coronary artery disease status post CABG x 2 and cardiac stent x 2, chronic kidney disease stage IIIb, diabetes mellitus type 2, anxiety who presented to the ER with chest pressure and elevated troponin from his primary care provider's office. Patient states that he has been short of breath for last 2 weeks and has had chest pressure the last 2 days with increasing exertional dyspnea. Patient was scheduled for outpatient angiogram, but given elevated troponin the ER provider contacted communication center operator who request the patient be placed on a heparin drip and made n.p.o. at midnight for heart catheterization tomorrow morning. Patient continues to endorse shortness of breath, exertional dyspnea and chest pressure. Patient denies current nausea, vomiting, diarrhea, abdominal pain, recent falls or injuries, dark or tarry stools, any type of bleeding, headache, or syncope. Patient is agreeable to admission with cardiac consultation, heart catheterization tomorrow morning, and continued medical management. Had [place] discussion with patient about CODE STATUS, patient request a to allow a natural and does not want any type of resuscitation. Hospital Course Hospital Course Type II [place] due to demand Chest Pain, resolved - Chest Pressure has resolved with duresing - HS troponin 193--<184--<187.2--<187.3 - Greatly appreciate cardiology consultation and management with Dr. Le - Cardiac monitoring - Continue diuresing Chronic Diastolic Heart Failure CAD Hyperlipidemia - Admitting proBNP 24,260 - Triglyceride 137, cholesterol 100, LDL 44, HDL 29 - Continue cardioprotective medications including carvedilol, valsartan, amlodipine, rosuvastatin, isosorbide, Plavix, aspirin - Lasix per cardiology with concern for volume overload, continues TRISTA Pleural Effusion - CT Chest: Dependent atelectasis, superimposed airspace disease dependent bilateral lower lobe. Large right pleural effusion, moderate left pleural effusion. - Continue to diurese - Supportive care with supplemental oxygen - Holding Plavix, resume at discharge - Thoracentesis with IR, removed 800mL right side, CXR post procedure with no pneumothorax or pleural effusion demonstrated, stable abnormal left chest Right adrenal nodule - This is an incidental finding on CT chest, recommended nonemergent MRI to better evaluate - Discussed with patient, outpatient follow-up Hypertension - Admitting blood pressure 118/59, now 103/63 - Continue amlodipine, carvedilol, valsartan DM-II - Holding metformin - A1c 5.5 - Medium dose sliding scale insulin, POC - Resume long-acting insulin after dosing is confirmed Depression/Anxiety - Continue alprazolam and duloxetine Community-acquired pneumonia - CXR: Findings suggesting chronic congestive heart failure. Less likely subacute pneumonitis. Bilateral pleural effusions, ground glass opacities in both lower lung pino. - WBC 7.94 - Elevated CRP - Initiated on IV Rocephin and doxycycline - Blood cultures x 2 no growth to date. CKD-IIIB - Creatinine 2.1--<2.5--<3.1--<3.5 - Avoid nephrotoxic agents - Renally dose medications BPH Urinary retention - Continue tamsulosin - Pat in place Discharge: Discharge is in stable condition in care of family. Patient will continue oral antibiotics at discharge. Diuresing per cardiology to continue 1gm bumex daily. Patient also discharges with continued home oxygen, home nebulizer delivered to the bedside. Patient is advised to follow-up with primary care provider in 1 to 2 days of discharge with continued monitoring of creatinine per see PCP and to follow-up with cardiology at the next available appointment. Patient is advised continued fluid restricted diet 1.5 L/day. Patient verbalized understanding, all questions and concerns addressed with him prior to discharge. Physical Exam Narrative: Pleasant, well-groomed 79-year-old male sitting up in bed in no apparent distress, oxygen supplementation via nasal cannula 3 liters per minute. Const: COMMON NORMALS: no acute distress and patient oriented x3 HENMT: COMMON NORMALS: normocephalic, Normal external nose present and moist oral mucous membranes HEAD & SCALP: normocephalic NOSE: Normal external nose present OTHER: Upper dentures in place Eye: COMMON NORMALS: Equal, round and reactive pupils present PUPIL: Yes Equal, round and reactive pupils present Neck/C-Spine: COMMON NORMALS: full ROM, no lymphadenopathy and no JVD Resp: COMMON NORMALS: normal respiratory effort OTHER: Clear bilaterally to auscultation, diminished at the bases Cardio: COMMON NORMALS: no JVD, regular rate, S1 normal heart sound present and S2 normal heart sound present RATE: regular rate HEART SOUNDS: S1 normal heart sound present and S2 normal heart sound present GI: COMMON NORMALS: Normal to inspection, nondistended, normoactive bowel sounds present Extremity: COMMON NORMALS: normal to inspection, full ROM, no calf tenderness and no pedal edema Neuro: COMMON NORMALS: patient oriented x3, CN's II-XII intact bilaterally and moves all extremities Psych: COMMON NORMALS: mental status grossly normal, cooperative and normal affect Skin: COMMON NORMALS: no rashes or lesions noted and turgor normal GENERAL SKIN EXAM: no rashes or lesions noted and turgor normal Urinary Catheter Management: Pat: Cath Placed During This Visit: yes Reason for Continuing Indwelling Catheter: Acute Urinary Retention or Obstruction Urinary Catheter Date of Insertion: 07/13/25 Urinary Catheter Time of Insertion: 12:15 Discharge Data Studies Completed and Pending Completed Studies During Hospitalization Category Date Time Status XR chest 1V portable [id number] Routine Exams 07/15/25 07:11 Completed XR chest 1V portable [id number] Stat Exams 07/12/25 14:06 Completed CV. echo complete* [id number] Stat Ultrasound 07/12/25 15:24 Completed Pending at discharge Category Date Time Status BMP [Basic Metabolic Panel] Routine Lab 07/15/25 07:10 Ordered Blood Culture Stat Lab 07/12/25 18:11 Results Complete Blood Count w/Auto AM LABS Lab 07/15/25 04:00 Ordered Comprehensive Metabolic Panel AM LABS Lab 07/15/25 04:00 Ordered Magnesium AM LABS Lab 07/15/25 04:00 Ordered Sputum Culture and Gram Stain Routine Lab 07/12/25 16:21 Uncollected Radiology Impressions Chest X-Ray 07/15/25 07:11 IMPRESSION: Improving abnormal chest. Laboratory Results WBC 8.16 10^3/uL (3.29-11.43) 07/14/25 09:43 RBC 3.72 10^6/uL (3.85-5.65) L 07/14/25 09:43 Hgb 10.10 g/dL (11.27-16.99) L 07/14/25 09:43 Hct 32.9 % (37-53) L 07/14/25 09:43 MCV 88.4 fl (82-101) 07/14/25 09:43 MCH 27.2 pg (27-33) 07/14/25 09:43 MCHC 30.7 g/dL (30-55) 07/14/25 09:43 RDW 15.9 % (12.1-15.1) H 07/14/25 09:43 Plt Count 210 10^3/cmm (157-399) 07/14/25 09:43 MPV 11.3 fL (7.4-10.4) H 07/14/25 09:43 Neut % (Auto) 67.1 % 07/14/25 09:43 Lymph % (Auto) 19.4 % 07/14/25 09:43 [place] % (Auto) 9.6 % 07/14/25 09:43 Eos % (Auto) 3.3 % 07/14/25 09:43 Baso % (Auto) 0.4 % 07/14/25 09:43 Neut # (Auto) 5.48 10^3/uL (1.8-7.7) 07/14/25 09:43 Lymph # (Auto) 1.6 10^3/uL (0.8-4.8) 07/14/25 09:43 [place] # (Auto) 0.8 10^3/uL (0.2-0.9) 07/14/25 09:43 Eos # (Auto) 0.3 10^3/uL (0.0-0.8) 07/14/25 09:43 Baso # (Auto) 0.0 10^3/uL (0.0-0.1) 07/14/25 09:43 Nucleated RBC % (auto) 0 % 07/14/25 09:43 Nucleated RBCs # 0.0 /100WBC 07/14/25 09:43 PT 12.60 SECONDS (12.1-14.9) 07/12/25 14:56 INR 0.88 (0.8-1.2) 07/12/25 14:56 APTT 63.6 SECONDS (23.9-36.7) H 07/13/25 18:20 Sodium 137 mmol/L (136-145) 07/14/25 09:43 Potassium 5.4 mmol/L (3.5-5.1) H 07/14/25 09:43 Chloride 103 mmol/L (98-107) 07/14/25 09:43 Carbon Dioxide 24 mmol/L (22-29) 07/14/25 09:43 Anion Gap 15.4 (5-19) 07/14/25 09:43 BUN 26 mg/dL (8-23) H 07/14/25 09:43 Creatinine 3.1 mg/dL (0.7-1.2) H 07/14/25 09:43 GFR Calculation Not Reportable 07/14/25 09:43 Glucose 195 mg/dL (65-115) H 07/14/25 09:43 POC Glucose 144 mg/dL (70-110) H 07/15/25 06:16 Estimat Average Glucose 111 07/13/25 03:37 Hemoglobin A1c 5.5 % (4.0-6.0) 07/13/25 03:37 Calculated Osmolality 294 mOsm/kg (285-295) 07/14/25 09:43 Calcium 8.6 mg/dL (8.5-10.5) 07/14/25 09:43 Magnesium 2.0 mg/dL (1.7-2.3) 07/14/25 09:43 Total Bilirubin 0.3 mg/dL (0.15-1.2) 07/14/25 09:43 AST 16 U/L (0-40) 07/14/25 09:43 ALT 11 U/L (0-41) 07/14/25 09:43 Alkaline Phosphatase 99 U/L (40-130) 07/14/25 09:43 Troponin T Baseline 184 ng/L (0-15) H* 07/12/25 14:56 Troponin T 120 Minute 187.2 ng/L (0-15) H 07/12/25 18:11 Delta Troponin T 3.2 ABS# (0-10) 07/12/25 18:11 Troponin T Hi Sens 6Hr 187.3 ng/L (0-15) H 07/12/25 21:20 Troponin T Hi Sens 6Hr Delta 3.3 ng/L (0-12) 07/12/25 21:20 Total Protein 6.5 g/dL (6.6-8.7) L 07/14/25 09:43 Albumin 3.5 g/dL (3.5-5.2) 07/14/25 09:43 Globulin 3.0 g/dL (1.3-4.6) 07/14/25 09:43 Triglycerides 137 mg/dL (0-150) 07/13/25 03:37 Cholesterol 100 mg/dL (0-200) 07/13/25 03:37 LDL Cholesterol, Calc 44 mg/dL (50-129) L 07/13/25 03:37 HDL Cholesterol 29 mg/dL (60-100) L 07/13/25 03:37 LDL/HDL Ratio 1.52 RATIO (0.00-3.22) 07/13/25 03:37 Cholesterol/HDL Ratio 3.45 mg/dL (1.0-5.00) 07/13/25 03:37 Lipase 30 U/L (13-60) 07/12/25 14:56 TSH 3.44 uIU/mL (0.27-4.20) 07/13/25 03:37 Vitals Last Vital Signs Temp 97.9 F 07/15/25 07:27 Pulse 71 07/15/25 07:57 Resp 18 07/15/25 07:57 BP 100/55 07/15/25 07:27 Pulse Ox 93 07/15/25 07:57 O2 Del Method Nasal Cannula 07/15/25 07:57 O2 Flow Rate 3 07/15/25 07:57 Discharge Plan Discharge Patient Disposition: Home Condition: Stable Prescriptions: New ipratropium-albuterol 0.5 mg-3 mg(2.5 mg base)/3 mL Solution For Nebulization 3 ml inhalation Q6H.RESP 30 Days Qty: 180 0RF budesonide 0.5 mg/2 mL Suspension For Nebulization 0.5 mg inhalation BID.RESPIRATORY 30 Days Qty: 120 0RF bumetanide 1 mg tablet 1 mg PO DAILY 90 Days Qty: 90 3RF Continued isosorbide mononitrate 30 mg tablet extended release 24 hr 30 mg PO DAILY Qty: 90 3RF nitroglycerin [Nitrostat] 0.4 mg tablet, sublingual 0.4 mg SUBLINGUAL Q5M PRN (Reason: Chest Pain) Qty: 20 3RF aspirin 81 mg tablet,delayed release (DR/EC) 81 mg PO DAILY rosuvastatin 10 mg tablet 10 mg PO DAILY Qty: 90 3RF hydrocodone-acetaminophen 10-325 mg tablet 1 tab PO BID PRN (Reason: pain) 30 Days Qty: 60 0RF tamsulosin 0.4 mg capsule 0.4 mg PO BID Qty: 180 3RF insulin glargine [Lantus Solostar U-100 Insulin] 100 unit/mL (3 mL) insulin pen 20 unit SUBCUT BID Qty: 15 11RF Patient Comments: LAST ADMIN WAS 1/ SCHEDULED DOSING (DME) self caths 14 [place]orean soft straight See Rx Instructions .Route .MEDSUPPLY Qty: 30 11RF Rx Instructions: self cath TID (DME) Dexcom G7 Sensor Device See Rx Instructions .Route Qty: 1 11RF Rx Instructions: As directed (DME) Dexcom G7 Salesperson Jewelry Misc See Rx Instructions .Route Qty: 1 0RF Rx Instructions: As directed levofloxacin 500 mg tablet 500 mg PO DAILY Qty: 7 0RF albuterol sulfate [Ventolin HFA] 90 mcg/actuation HFA aerosol inhaler 2 puff inhalation Q6H PRN (Reason: shortness of breath or wheezing) Qty: 8.5 11RF Rx Instructions: please give spacer carvedilol 3.125 mg tablet 3.125 mg PO BID Qty: 180 3RF Rx Instructions: must administer with a meal/food valsartan 160 mg tablet 160 mg PO QAM Qty: 90 3RF amlodipine 5 mg tablet 5 mg PO BID Qty: 180 3RF metformin 500 mg tablet extended release 24 hr See Rx Instructions .ROUTE .COMPLEX Qty: 180 3RF Dose Instruction: TAKE ONE TABLET BY MOUTH TWICE DAILY Patient Comments: Patient states he was told to put medication on hold for 3 days Rx Instructions: TAKE ONE TABLET BY MOUTH TWICE DAILY clopidogrel 75 mg tablet See Rx Instructions .ROUTE .COMPLEX Qty: 90 3RF Dose Instruction: TAKE 1 TABLET BY MOUTH EVERY DAY Rx Instructions: TAKE 1 TABLET BY MOUTH EVERY DAY omeprazole 20 mg capsule,delayed release(DR/EC) See Rx Instructions .ROUTE .COMPLEX Qty: 90 3RF Dose Instruction: TAKE 1 CAPSULE BY MOUTH EVERY DAY Rx Instructions: TAKE 1 CAPSULE BY MOUTH EVERY DAY alprazolam 0.5 mg tablet 0.5 mg PO DAILY Qty: 30 5RF Discharge Order = DC NOW: Discharge Order (Routine); Ordered 07/16/25 Ordered By: Cary Spivey Other Ambulatory Orders: DME: Nebulizer with Neb Kit (Order) Location: None Selected Ordered By: Cary Spivey DME: Oxygen (Order) Location: None Selected Ordered By: Cary Spivey Referrals: Radha Garica FNP [Nurse Practitioner, Cardiology] - 07/21/25 10:30 am Gavin Garsia MD [Primary Care Provider, Family Practice] - 07/22/25 10:50 am Discharge Diet: Cardiac Discharge Activity: Resume usual activity Patient Instructions: Bumetanide (By mouth), Ipratropium (By breathing), Budeso nide (By breathing), Heart Attack (DC), Chronic Kidney Disease (DC), Community Acquired Pneumonia (DC), Fluid Restriction (DC), Chest Pain Stoplight, Opioid Safety, Patient Portal & Amber Instructions Discharge Attestations Time Spent in Discharge Care*: greater than 30 min Quality Metrics Clinical Quality Measures [ No reported AMI, CVA or VTE this stay] Coding Level of Care Code 70250 Diagnoses Chest pain R07.9 NSTEMI (non-ST elevated myocardial infarction) I21.4 Chronic diastolic congestive heart failure I50.32 Heart failure chronicity: chronic Heart failure type: diastolic CKD (chronic kidney disease) N18.9 Essential hypertension I10 Hypertension type: essential hypertension Coronary artery disease I25.10
--- NOTE | 2025-07-16 08:02 | US_ITS ---
WS: [id number] ULTRASOUND-GUIDED THORACENTESIS CLINICAL INFORMATION: Large RIGHT pleural and morderate Left Pleural effusion PROCEDURE: Informed consent: The risks, benefits, and alternatives of the procedure were discussed with the patient. Verbal and written consent was obtained. Timeout: A timeout was performed to confirm the correct patient, procedure, and site. Site: RIGHT chest Preparation: A suitable skin site was identified. The patient was prepped and draped in usual sterile fashion. Lidocaine 1% was used for local anesthesia. Catheter: 4 [place] One-Step catheter. Fluid Volume: 800 ml Color: Bibiana Discarded safely. Complications: No immediate complications. / thoracentesis [id number] IMPRESSION: Uncomplicated ultrasound-guided RIGHT chest thoracentesis. Portable chest is pending
[2025-07-16 10:02] LABS: Hematocrit 36.4 % (37-53); Hemoglobin 11.50 g/dL (11.27-16.99); Mean Corpuscular HGB Conc 31.6 g/dL (30-55); Mean Corpuscular Hemoglobin 27.7 pg (27-33); Mean Corpuscular Volume 87.7 fl (82-101); Nucleated Red Blood Cells % 0 %; Platelet Count 214 10^3/cmm (157-399); Red Blood Count 4.15 10^6/uL (3.85-5.65); White Blood Count 8.07 10^3/uL (3.29-11.43)
[2025-07-16 10:30] LABS: Alanine Aminotransferase 14 U/L (0-41); Albumin Level 3.6 g/dL (3.5-5.2); Alkaline Phosphatase 104 U/L (40-130); Anion Gap 18.8 (5-19); Aspartate Amino Transferase 24 U/L (0-40); Blood Urea Nitrogen 34 mg/dL (8-23); Calcium 8.9 mg/dL (8.5-10.5); Carbon Dioxide 24 mmol/L (22-29); Chloride 101 mmol/L (98-107); Globulin 3.3 g/dL (1.3-4.6); Glucose 101 mg/dL (65-115); Osmolality Calculated 296 mOsm/kg (285-295); Potassium 4.8 mmol/L (3.5-5.1); Sodium 139 mmol/L (136-145); Total Protein 6.9 g/dL (6.6-8.7)
--- NOTE | 2025-07-16 12:28 | PC.SOCIAL ---
IMM UPDATED IMM dated and initialed, copy given to patient and copy placed in chart.
--- NOTE | 2025-07-16 14:09 | XR_ITS ---
WS: [id number] XR chest 1V portable [id number] REASON FOR EXAM: pleural effusion FINDINGS: No right pneumothorax. No significant right pleural effusion demonstrated. Right lung appears better expanded than on the previous examination of 07/15/2025. Likely there is continued atelectasis and left pleural effusion. XR/XR chest 1V portable [id number] IMPRESSION: No right pneumothorax. No right pleural effusion demonstrated. Stable abnormal left chest.
--- NOTE | 2025-07-16 14:13 | P.PN_ITS ---
<Statement entered by Pradip Le MD - 07/16/25 16:10> Patient was evaluated and cared for in conjunction with an advanced practice practitioner. I personally examined the patient and reviewed the chart and all pertinent data including imaging, telemetry, and laboratory results. I discussed the patient in detail with the advanced practice practitioner. Please see their note for complete H&P testing result and agreed upon plan of care for the patient. Status post right thoracentesis drained 1 L of fluid, ultrasound shows small to moderate left lung pleural effusion GENERAL: Patient is alert, awake and oriented x3. HEART: Regular S1 and S2. No murmur, rub or gallop. LUNGS: Clear air entry on the right side reduced on the left lower. CENTRAL NERVOUS SYSTEM: Grossly nonfocal. EXTREMITIES: Lower extremities with out edema bilaterally. Assessment and plan Acute on chronic decompensated systolic heart failure now compensated Acute on chronic kidney injury Type II non-ST elevation HI Moderate to large pleural effusion status post pleurocentesis Will send fluid for analysis to the lab Will switch patient to Bumex 1 mg once a day Continue rest of home medications Continue dual antiplatelet therapy including clopidogrel and aspirin Repeat ultrasound of the both lungs in 7 to 10 days to assess the effusion on the left side and any recurrence on the right side requiring further thoracentesis Subjective 2 Subjective: Patient doing well today -2 to 8-hour over 24 hours. Patient is going for a right sided thoracentesis today. He has improved. Creatinine stable at 3.5. Vitals/I&O/Wt Last Vital Signs Temp 97.7 F 07/16/25 12:00 Pulse 71 07/16/25 12:00 Resp 18 07/16/25 08:00 BP 102/62 07/16/25 12:00 Pulse Ox 93 07/16/25 12:00 O2 Del Method Nasal Cannula 07/16/25 12:00 O2 Flow Rate 4 07/16/25 08:00 07/15/25 07/16/25 07/16/25 22:59 06:59 14:59 Output Total 1200 / 1900 500 / 2400 Balance -1200 / -1780 -500 / -2280 Weight last 48 hrs Weight 205 lb 3.572 oz Weight 207 lb 3.752 oz Physical Exam 2 Narrative: General: No apparent distress, healthy appearing, well nourished Respiratory: Normal respiratory effort, bilateral posterior lower lobes coarse crackles on inspiration, bilateral lower lobes diminised but worse on left anterior posterior lobes, no use of accessory muscles Cardio: No JVD, regular rate, regular rhythm, S1 S2 normal, no murmurs, peripheral pulses 2+ radial palpated bilaterally GI: Normal to inspection, slightly distended Extremities: no cyanosis or edema Neuro: Alert and oriented x4 Psych: Affect normal, denies suicidal ideation, mental status grossly normal Skin: No rashes or lesions noted, no wounds Urinary Catheter Management: Pat: Cath Placed During This Visit: yes Reason for Continuing Indwelling Catheter: Accurate Measurement of Urinary Output in Critically Ill Patients Urinary Catheter Date of Insertion: 07/13/25 Urinary Catheter Time of Insertion: 12:15 Data 07/16/25 09:32 07/16/25 09:32 A&P Assessment and plan 1. Chest pain: 2. NSTEMI (non-ST elevated myocardial infarction): 3. Chronic diastolic congestive heart failure: 4. CKD (chronic kidney disease): 5. Hypertension: 6. Coronary artery disease: Plan: Patient has done well and is negative to 280 over 24 hours. Will continue Lasix. He is supposed to be getting a right sided thoracentesis today. If patient tolerates the procedure, can go home if doing well a couple hours from procedure and start patient on Bumex 1 mg daily. PDMP PDMP Reviewed: Not Reviewed Attestations 2 Medical Necessity Statement*: Deferred to primary Coding Level of Care Code Acute Code for [facility] Diagnoses Chest pain R07.9 NSTEMI (non-ST elevated myocardial infarction) I21.4 Chronic diastolic congestive heart failure I50.32 Heart failure chronicity: chronic Heart failure type: diastolic CKD (chronic kidney disease) N18.9 Hypertension I10 Coronary artery disease I25.10
[2025-07-16 17:03] LABS: Total Protein 6.9 g/dL (6.6-8.7)
--- NOTE | 2025-07-16 17:07 | PC.NURSE ---
patient discharged to home. Instruction provided regarding follow up needs and new medications. Patient verbalized complete understanding. Thora site remains c,d,i with no s/s of bleeding or hematoma formation observed. Patient denies pain or needs. No distress observed. Patient taken by wheelchair to private vehicle.
[2025-07-16 19:36] LABS: Body Fluid Polynuclear #Cells 0.053; Monocytes # Body Fluid 0.170; Mononuclear WBC Body Fluid % 76.300 %; Polynuclear WBC Body Fluid % 23.700 %
[2025-07-16 19:43] LABS: Apprearance, Body Fluid CLOUDY; Color, Body Fluid RED
[2025-07-16 19:57] LABS: PATH Referral YES
== END 2025-07-16 16:50 | disposition home or self-care (01) | DRG 280 ==
LOC: ER 15:07 → CSU 15:48
PROVIDERS: Emergency Medicine; Admitting Provider Student in an Organized Health Care Education/Training Program; Emergency Provider Family Medicine; PCP Family Medicine; Visit Provider Registered Nurse
DX: I13.0 Hypertensive heart and chronic kidney disease with heart failure and stage 1 through stage 4 chronic kidney disease, or unspecified chronic kidney disease (principal); I50.33 Acute on chronic diastolic (congestive) heart failure; I21.A1 Myocardial infarction type 2; J18.9 Pneumonia, unspecified organism; N17.9 Acute kidney failure, unspecified; J90 Pleural effusion, not elsewhere classified; E11.22 Type 2 diabetes mellitus with diabetic chronic kidney disease; N18.32 Chronic kidney disease, stage 3b; Z79.4 Long term (current) use of insulin; Z79.84 Long term (current) use of oral hypoglycemic drugs; Z79.82 Long term (current) use of aspirin; I25.10 Atherosclerotic heart disease of native coronary artery without angina pectoris; Z95.1 Presence of aortocoronary bypass graft; Z95.5 Presence of coronary angioplasty implant and graft; E78.5 Hyperlipidemia, unspecified; E27.9 Disorder of adrenal gland, unspecified; F32.A Depression, unspecified; F41.9 Anxiety disorder, unspecified; N40.0 Benign prostatic hyperplasia without lower urinary tract symptoms; R33.9 Retention of urine, unspecified; E11.51 Type 2 diabetes mellitus with diabetic peripheral angiopathy without gangrene; I73.9 Peripheral vascular disease, unspecified; Z99.81 Dependence on supplemental oxygen; Z83.3 Family history of diabetes mellitus; Z82.49 Family history of ischemic heart disease and other diseases of the circulatory system
CPT/HCPCS: 32555; 36415; 36416; 51702; 51798; 71045; 71250; 80053; 80061; 80503; 82042; 82962; 83036; 83615; 83690; 83735; 83986; 84155; 84443; 84484; 85025; 85610; 85730; 87040; 87070; 87075; 87205; 88112; 88305; 89050; 93005; 93306; 94640; 94760; 96365; 96372; 96375; 99285; J0696; J1644; J1815; J1938; J2405; J2470; J3475; J3490; J7030; J7626; J9999

== ENCOUNTER → 2025-07-21 10:41 | Outpatient (BNVA) | payer MEDICARE, OTHER, SELFPAY | PROVIDERS: PCP Family Medicine; Visit Provider Nurse Practitioner Family | DX: I25.10 Atherosclerotic heart disease of native coronary artery without angina pectoris (principal); Z95.1 Presence of aortocoronary bypass graft; I13.0 Hypertensive heart and chronic kidney disease with heart failure and stage 1 through stage 4 chronic kidney disease, or unspecified chronic kidney disease; N18.9 Chronic kidney disease, unspecified; I50.30 Unspecified diastolic (congestive) heart failure; E11.22 Type 2 diabetes mellitus with diabetic chronic kidney disease; Z79.4 Long term (current) use of insulin; Z79.84 Long term (current) use of oral hypoglycemic drugs | CPT/HCPCS: 99214 ==